=== PATIENT | female | born 1940 | race Caucasian/White ===

== ENCOUNTER 2018-09-12 01:44 | Inpatient (IN) | payer MEDICARE, BC ==
[~2018-09-12] VITALS: Ht 162.6 cm; Wt 66.2 kg
--- NOTE | 2018-09-12 01:44 | NUR ---
ED Nurse Note: Patient biba RA 60 from [facility] c/o hemoptysis, at time of arrival patient did cough up reddish tinged secretions, EMS states that it started at around 1230, patient is able to answer questions, patient does have a perma cath on the left upper chest, 2 ports for dialysis and 1 port for IV. patient's skin is bruised and swelled up, especially on the right arm.
[2018-09-12 01:45] VITALS: BP 160/74
[2018-09-12] MEDS ORDERED: Tranexamic Acid 500 MG in NS 55 ML IVPB ONE (02:00)
[2018-09-12] MEDS ORDERED: Albuterol/Ipratropium 3ml neb HHN ONE (02:00)
[2018-09-12 02:24] LABS: HEMATOCRIT 28.4 % (37.0-47.0); HEMOGLOBIN 9.3 G/DL (12.0-16.0); MEAN CORPUSCULAR VOLUME 107 FL (80-99); PLATELET COUNT 238 K/UL (150-450); RED BLOOD COUNT 2.65 M/UL (4.20-5.40); RED CELL DISTRIBUTION WIDTH 19.4 % (11.6-14.8); WHITE BLOOD COUNT 18.9 K/UL (4.8-10.8)
--- NOTE | 2018-09-12 02:30 | NUR ---
ED Nurse Note: RETURNED FROM BREAK AND RESUMED CARE, PT IN BED AWAKE, ALERT AND ORIENTED X 4, PT IS SPEAKING AND CONVERSING WITH ME, PT IS HERE FROM SNF FOR GI BLEED, PT NOTED WITH RED BLOOD IN MOUTH, PT MOUTH CLEANED ND PT SWISH AND SPIT, ALSO PT IS INCONTINENT OF STOOL, BROWN COLORED AND VERY SOFT AND LARGE AMOUNT, RUNNING OFF GURNEY ON FLOOR, PT GIVEN COMPLETE BATH AND LINEN CHANGE, PT HAS GENERALIZED PITTING EDEMA WITH SEVERE ECHYMOSIS NOTED ALSO GENERALIZED, PT ON CARDIAC MONITORING, HAS PATENT PERMACATH TO LEFT CHEST AND HOLTER MONITOR IN MID CHEST, WILL RESUME PT CARE AND PREPARE FOR HOSPITAL ADMISSION.
[2018-09-12 02:36] LABS: INR 1.1 (0.9-1.1)
[2018-09-12 02:37] LABS: ANION GAP 11 mmol/L (5-15); BLOOD UREA NITROGEN 35 mg/dL (7-18); CALCIUM 8.2 MG/DL (8.5-10.1); CARBON DIOXIDE 28 MMOL/L (21-32); CHLORIDE 102 MMOL/L (98-107); CREATININE 3.2 MG/DL (0.55-1.30); POTASSIUM 3.7 MMOL/L (3.5-5.1); SODIUM 141 MMOL/L (136-145)
[2018-09-12] MEDS ORDERED: METHOCARBAMOL500 MG ORAL (02:38)
[2018-09-12] MEDS ORDERED: GABAPENTIN100 MG ORAL (02:38)
[2018-09-12] MEDS ORDERED: SYNTHROID150 MCG ORAL (02:38)
[2018-09-12] MEDS ORDERED: PRAVACHOL40 MG ORAL (02:38)
[2018-09-12] MEDS ORDERED: NEPHROVITE1 TAB ORAL ×2 (02:38→12:19)
[2018-09-12] MEDS ORDERED: LOSARTAN POTASS25 MG ORAL (02:38)
[2018-09-12] MEDS ORDERED: PROTONIX40 MG ORAL (02:38)
[2018-09-12] MEDS ORDERED: ZOSYN 2.252.25 GM/50 IV (02:38)
[2018-09-12 02:50] LABS: ALANINE AMINOTRANSFERASE 14 U/L (12-78); ALBUMIN 1.6 G/DL (3.4-5.0); ALBUMIN/GLOBULIN RATIO 0.4 (1.0-2.7); ALKALINE PHOSPHATASE 131 U/L (46-116); ASPARTATE AMINO TRANSFERASE 21 U/L (15-37); BILIRUBIN,TOTAL 0.5 MG/DL (0.2-1.0); CKMB 1.7 NG/ML (0.0-3.6); CREATINE KINASE 14 U/L (26-308); PHOSPHORUS 4.6 MG/DL (2.5-4.9)
[2018-09-12 03:00] VITALS: BP 113/69
--- NOTE | 2018-09-12 03:45 | NUR ---
ED Nurse Note: PT HAD INCIDENT OF COUGH AND CONGESTION WHICH IS ALL BLOOD TINGED SPUTUM, BRIGHT RED, INFORMED AND AWARE AND STATES TO ADMINISTER ORDERED MED, WILL ADMINISTER ORDERED, PT REMAINS ON MONITORING, WILL CONTIONUE TO CLOSELY MONITOR AND PREPARE FOR HOSPITAL ADMISSION.
[2018-09-12 04:00] VITALS: BP 111/59
[2018-09-12] MEDS ORDERED: Cefepime HCl 1 GM in D5W 55 ML IVPB ONE (04:15)
[2018-09-12] MEDS ORDERED: Vancomycin 1 GM in NS 275 ML IVPB ONE (04:15)
--- NOTE | 2018-09-12 04:45 | NUR ---
ED Nurse Note: PT DESATURATES LOW WHEN ASLEEP, HAS N/C O2 BUT SAT = 88%, PT IS BEING STARTED ON BIPAP, REMAINS ON CARDIAC MONITORING, PT REPOSITIONED AND TURNED WITH PILLOWS, WILL CONTINUE TO CLOSELY MONITOR AND PREPARE FOR ADMISSION, PT ALSO STARTED ON IV ANTIBIOTICS, TOLERATING WELL, NO S/S OF ADVERSE REACTION NOTED.
--- NOTE | 2018-09-12 06:10 | NUR ---
ED Nurse Note: Pt being taken to imaging for cta, will resume care when pt returns to department.
[2018-09-12 07:10] VITALS: BP 132/58
--- NOTE | 2018-09-12 07:13 | NUR ---
ED Nurse Note: [phone] MOODY -SON
--- NOTE | 2018-09-12 07:15 | NUR ---
ED Nurse Note: recieved pt on bed, connected to monitor with vs within normal limit, pt has ongoing atb iv, pt is on oxygen at 6L/min. pt is arousable to name, pt respiration equal and unlabored
--- NOTE | 2018-09-12 08:00 | NUR ---
ED Nurse Note: pt noted to be coughing and spitted sputum with blood, pt oxygen saturation went down to 70s, pt placed on high fowlers position and on 15L/min non rebreathing mask, ermd made aware. will continue to monitor
--- NOTE | 2018-09-12 08:15 | NUR ---
ED Nurse Note: DR. MARR AT THE BEDSIDE
--- NOTE | 2018-09-12 08:24 | NUR ---
ED Nurse Note: pt rechecked and monitor, with o2 sat on 99 on 10L/min nasal cannula. pt is arousable by touch. able to speak. will continue to monitor.
--- NOTE | 2018-09-12 08:28 | NUR ---
ED Nurse Note: attempted to call icu to give report to accepting rn and was advised to call back in 15 minutes because the rn is with md and accepting orders.
--- NOTE | 2018-09-12 08:50 | NUR ---
ED Nurse Note: pt was admited to the hospital. report given to lauryn christy. pt trasnfered to icu with stable vs.
--- NOTE | 2018-09-12 09:15 | NUR ---
NURSE NOTES: Received pt a, new admission for ED,brought to ICU per javier accompanied by PROCESSING ANALYST Yue and a transporter,and family member,awake,alert in no resp distress on 5L NC,O2 sat 98%,no signs of pain or discomfort SR on the monitor,pt with Holter monitor in placed,skin warm and dry with ecchymotic RT arm,with Lt PAC in placed,SR up x2 HOB elevated will conitnue with plans of care.
--- NOTE | 2018-09-12 10:30 | NUR ---
NURSE NOTES: WOC nurse at bedside,wounds assessed and photos taken.
--- NOTE | 2018-09-12 11:30 | Diagnostic Imaging Report ---
ndication: Chest pain, coughing blood Technique: IV administration nonionic contrast. Spiral acquisitions obtained from the lung bases to the lung apices. Multiplanar and 3-D reconstructions were generated. Total dose length product 984.2 mGycm. CTDIvol(s) 26.39 mGy. Dose reduction achieved using automated exposure control Comparison: none Findings: Pulmonary arterial opacification is suboptimal and small distal emboli could be missed. No gross acute large vessel pulmonary emboli demonstrated. Right and left main pulmonary arteries are ectatic, measuring 25 mm in diameter. There is four-chamber cardiomegaly, but no isolated right ventricular dilatation demonstrated. No thoracic aortic aneurysm or dissection demonstrated. There is variant anatomy of separate origin of the vertebral artery off of the aortic arch. There is approximately 50% narrowing of the left renal artery noted. The remaining pulmonary visceral vessels are unremarkable. The pulmonary parenchyma demonstrates diffuse interstitial septal thickening, considerable groundglass and denser parenchymal opacities throughout. There is also evidence of right upper lobe bullous changes. There is a large left pleural effusion which may be at least partially loculated. There is compressive atelectasis of much of the left lower lobe as a result. There is a smaller right pleural effusion, with compressive atelectatic changes at the right lung base as well. The heart is enlarged. There is mediastinal lymphadenopathy, with a precarinal node measuring 21 x 21 mm, as cause other large paratracheal nodes. Esophagus is grossly unremarkable. Prominent nodes are seen in the right axilla. There is fairly extensive diffuse edema of the subcutaneous and mediastinal fat. There is a tunneled dialysis catheter in place. The tip is deep in the right atrium. There is also a left transjugular central venous catheter, tip of which is retrograde within the azygos vein. The included upper abdominal anatomy is remarkable for the presence of an enhancing mass in the left kidney that measures 2 cm in diameter. There is an eggshell calcification centrally in the left kidney. There are multiple renal cysts as well as subcentimeter low-attenuation lesions bilaterally. There is a wedge-shaped low-attenuation area in the periphery of the spleen. The liver demonstrates mild surface nodularity. There are patchy areas of enhancement. There is abdominal ascites. There is a compression fracture deformity of the T12 vertebral body with posterior retropulsion. There is a acute appearing fracture deformity of the right lateral ninth rib. There is an old healed fracture deformity of the left posterolateral eighth rib. Impression: Suboptimal opacification of the pulmonary arteries; no gross large vessel pulmonary emboli demonstrated Negative for thoracic aortic aneurysm or dissection Four-chamber cardiomegaly Interstitial septal thickening, likely secondary to pulmonary edema. Groundglass and denser airspace opacities diffusely bilaterally, likely on the basis of pulmonary edema but other etiologies possible Large left and small right pleural effusions. That on the left is possibly loculated, particularly in the upper hemithorax Ascites Anasarca, with, in addition to the above findings, diffuse edema of the subcutaneous, mediastinal, and abdominal fat Compressive atelectasis of much of the left lower lobe and portions of the right lower lobe due to the pleural fluid Evidence of COPD changes Mediastinal lymphadenopathy, may reactive or neoplastic 2 cm enhancing left renal mass, worrisome for renal neoplasm. Consider dedicated renal CT for better characterization Partial eggshell calcification within the renal sinus, could represent a partially calcified renal artery aneurysm versus a postinflammatory lesion Hepatic surface nodularity, likely cirrhosis Scattered areas of arterial hyperenhancement in the liver, likely related to cirrhotic change or transient areas of arterial enhancement T12 compression fracture with posterior retropulsion. Consider MRI to determine acuity if clinically relevant Wedge-shaped area of low-attenuation in the spleen, likely an old infarct Narrowing of the left renal artery Mild ectasia of the pulmonary arteries, suggestive of but not diagnostic for mild pulmonary artery hypertension Right lateral ninth rib fracture Bilateral renal cysts. Subcentimeter low-attenuation renal lesions bilaterally, most likely benign simple cysts Possible right axillary lymphadenopathy Tunneled dialysis catheter, tip projecting deep in the right atrium. There is a left jugular central venous catheter, tip of which is in the azygos vein projected retrograde This agrees with the preliminary interpretation provided overnight by [facility] teleradiology service. The CT scanner at [facility] is accredited by the [employer] and the scans are performed using protocols designed to limit radiation exposure to as low as reasonably achievable to attain images of sufficient resolution adequate for diagnostic evaluation.
[2018-09-12] MEDS ORDERED: NORVASC5 MG ORAL (12:19)
[2018-09-12] MEDS ORDERED: TRAMADOL HCL50 MG ORAL (12:19)
[2018-09-12] MEDS ORDERED: ZINC SULFATE220 M2 ORAL (12:19)
[2018-09-12] MEDS ORDERED: VANCOCIN250 MG ORAL (12:19)
[2018-09-12] MEDS ORDERED: GUAIFENESIN DA473 ML PO (12:19)
[2018-09-12] MEDS ORDERED: GUAIFENESI100 MG/5 M ORAL (12:19)
[2018-09-12] MEDS ORDERED: ZOLPIDEM TARTRAT5 MG ORAL (12:19)
[2018-09-12] MEDS ORDERED: ROPINIROLE HCL2 M1 PO (12:19)
[2018-09-12] MEDS ORDERED: guaiFENesin 100mg/5ml Liq ud ORAL SCH (12:30)
--- NOTE | 2018-09-12 12:33 | NUR ---
CASE MANAGEMENT: INITIAL REVIEW 77 YO F NATHANIEL FROM [facility] CC: GI BLEED PMHx: ESRD. HD MWF. CKD. SI:HEMOPTYSIS. T 98.4 HR 86 RR 18 B/P 160/74 SATS 92% ON RA WBC 18.9 BUN 35 CR 3.2 GLU 139 CA 8.2 ALP 131 TOTAL CK 14 BNP 8099 IS: DUONEB HHN X1 TRANSEXAMIC ACID IV X1 PATIENT ADMITTED TO ICU 09/12/2018 @ 0252 DCP: PATIENT TO BE DISCHARGED TO SNF ONCE MEDICALLY CLEARED. PLAN OF CARE: [facility] Addendum: 09/12/18 at 1447 by Danielle Manley INTERQUAL MET
[2018-09-12] MEDS ORDERED: guaiFENesin 100mg/5ml Liq ud ORAL PRN (13:00)
--- NOTE | 2018-09-12 14:08 | NUR ---
NURSE NOTES:WOUND CARE NOTES:Pt presented on admission with multiple pressure injuries.Pt also noted to have multiple senile purpuras R neck /R shoulder,Both upper ext and both lower ext. Non-blanchable erythema without induration or elevation in skin temp noted to thoracic spine(L)4cm x (W)2.4cm. Non-blanchable erythema without induration noted to Sacrum with an area that is purple in colour R buttocks.Pt denied tenderness when buttocks minimally palpated.(L)8cm x (W)12.5cm. Non-blanchable erythema noted to both ischial regions.Pt denied tenderness when each site minimally palpated. Erythema noted to mons pubis and labia majora. Pt denied burning or itching. Non-blanchable erythema with maroon discoloration with fluctuance centrally at base of wound R heel .Tender when minimally palpated. Non-blanchable erythema with fluctuance L heel. non-tender when minimally palpated. Full thickness pressure injury with 80% fibrinous slough noted to lateral R tibia.(+) maceration along edges . Scattered purpuras periwound. No elevation in skin temp at site of wound. Small amt non-odorous seropurulent exudate noted. (L)4cm x (W)1.4cm. Tx.Plan: Apply Cavilon Skin Barrier to thoracic spine. Cover with Optifoam drsg. Change every 7 days and prn. Apply Moisture Barrier Paste to Sacrum. Cover with Optifoam drsg. Change every 3 days and prn. Apply Moisture Barrier to perineum and both ischial areas with each perineal care. Cleanse R lateral lower ext with saline. Apply Therahoney. Apply Cavilon Skin Barrier periwound.Cover with Optifoam drsg. Change every 3 days and prn Apply Cavilon Skin Barrier to both heels. Cover each heel with Optifoam drsg. Change every 7 days and prn. Reposition at least every 2hours or as tolerated. APM/MOISES mattress. Off-load heels with pillow.
--- NOTE | 2018-09-12 15:20 | NUR ---
TRANSFER TO FLOOR: Patient transferred to [facility] , per bed 237-2. Report given to Alley ALMARAZ.. Family informed of transfer.
--- NOTE | 2018-09-12 15:22 | Cardiology Report ---
APPROVED REPORT EKG Measurement Heart [id number] Normal sinus rhythm Cannot rule out Anterior infarct, age undetermined Abnormal ECG
--- NOTE | 2018-09-12 15:45 | NUR ---
NURSE NOTES: Received pt from [facility] in stable condition with no cardiopulmonary distress noted. Pt is AAOx4, on 4L O2 via NC hooked to monitoring specialist currently SR 75bpm. Permacath noted on left chest (tunneled dialysis catheter). Skin alterations noted and notable bruising on bilat upper extremities. Bed is in lowest position, alarm on, side rails up x 3, call light within reach, family at bedside and airborne precuation teaching provided however family refuses to wear N95 mask at this time, Juan Francisco (son) states "my mom got all the tests done at [facility] and she doesn't have TB." Will continue to monitor pt. Addendum: 09/12/18 at 1856 by Alley Bryan RN Amendment: pt has kenneth (not permacath)
[2018-09-12 16:00] VITALS: BP 142/41
--- NOTE | 2018-09-12 16:00 | NUR ---
NURSE NOTES: Noted AV shunt on left arm. Pt states "it's old, they don't use it anymore, go ahead and take my blood pressure there."
--- NOTE | 2018-09-12 16:14 | Diagnostic Imaging Report ---
Indication: Shortness of breath for one day Technique: One view of the chest Comparison: none Findings: There is a left jugular tunneled dialysis catheter, tip which projects deep within the right atrium. There is a left jugular central venous catheter, tip of which is pointed horizontally, demonstrated on subsequent CT angiogram to be retrograde within the azygos vein. There is extensive bilateral interstitial and airspace disease. Large left and small right pleural effusions are demonstrated. Overlying monitor worker noted. The heart size is upper limits of normal Impression: Extensive diffuse bilateral interstitial and airspace infiltrates versus edema Large left, small right pleural effusion Malposition of left jugular central venous catheter, tip pointed retrograde in the azygos vein Other findings as noted
--- NOTE | 2018-09-12 16:30 | NUR ---
Walked into pt's room and observed family feeding the pt pork dinner, informed them of her clear liquid diet and explained she cannot eat solid foods. Offered them apple juice and thickened water. Pt preferred the thickened water for now. Family verbalized understanding and agreed not to feed pt.
--- NOTE | 2018-09-12 17:13 | History & Physical ---
History and Physical History & Physicial dict hemoptysis SBE cervical osteo ESRD multiple other medical problems sputum AFB quantiferon Gold if neg needs bronch DNR her wish Curtis Adams MD Sep 12, 2018 17:13
--- NOTE | 2018-09-12 17:56 | Infectious Diseases Prog Note ---
Assessment/Plan Assessment/Plan Full consult dictated: ? sepsis, sirs leukocytosis ? TB pna/infection, patient with hemoptysis hx endocarditis hx cervical osteomyelitis ? line infection vancomycin, cefepime and flagyl check blood cultures, labs, chest-x-ray, echo, afp check [facility] records orders noted and entered akin winkler Subjective Allergies: Coded Allergies: PENICILLINS (Unverified Allergy, Unknown, 09/12/18) Objective Vital Signs Last 24 Hour Vital Signs Date Time Temp Pulse Resp B/P (MAP) Pulse Ox O2 Delivery O2 Flow Rate FiO2 09/12/18 16:00 98.4 72 24 142/41 (74) 95 09/12/18 16:00 Nasal Cannula 4.0 09/12/18 15:20 71 09/12/18 10:30 Nasal Cannula 4.0 09/12/18 08:50 98.4 66 12 132/58 100 Nasal Cannula 6.0 30 66 09/12/18 07:15 98 Nasal Cannula 4.0 36 09/12/18 07:10 66 12 132/58 100 Nasal Cannula 6.0 66 09/12/18 04:52 71 13 95 Facial 30 09/12/18 04:00 98.4 71 18 111/59 98 Non-Rebreather 15.0 97 09/12/18 03:00 98.4 78 16 113/69 100 Room Air 15.0 97 09/12/18 02:19 89 16 98 Non-Rebreather 15.0 97 09/12/18 02:10 86 16 99 Non-Rebreather 15.0 100 09/12/18 02:09 89 16 99 Non-Rebreather 15.0 100 09/12/18 01:45 98.4 81 18 160/74 92 Room Air 09/12/18 01:45 96 18 09/12/18 01:39 98.4 96 18 160/74 (102) 92 Height (Feet): 5 Height (Inches): 4.00 Weight (Pounds): 120 Microbiology Date/Time Source Procedure Growth Status 09/12/18 04:00 Rectum Received Laboratory Tests Test 09/12/18 02:05 09/12/18 02:20 09/12/18 04:06 White Blood Count 18.9 K/UL (4.8-10.8) H Red Blood Count 2.65 M/UL (4.20-5.40) L Hemoglobin 9.3 G/DL (12.0-16.0) L Hematocrit 28.4 % (37.0-47.0) L Mean Corpuscular Volume 107 FL (80-99) H Mean Corpuscular Hemoglobin 35.0 PG (27.0-31.0) H Mean Corpuscular Hemoglobin Concent 32.8 G/DL (32.0-36.0) Red Cell Distribution Width 19.4 % (11.6-14.8) H Platelet Count 238 K/UL (150-450) Mean Platelet Volume 6.5 FL (6.5-10.1) Neutrophils (%) (Auto) % (45.0-75.0) Lymphocytes (%) (Auto) % (20.0-45.0) Monocytes (%) (Auto) % (1.0-10.0) Eosinophils (%) (Auto) % (0.0-3.0) Basophils (%) (Auto) % (0.0-2.0) Prothrombin Time 11.3 SEC (9.30-11.50) Prothromb Time International Ratio 1.1 (0.9-1.1) Activated Partial Thromboplast Time 38 SEC (23-33) H Sodium Level 141 MMOL/L (136-145) Potassium Level 3.7 MMOL/L (3.5-5.1) Chloride Level 102 MMOL/L (98-107) Carbon Dioxide Level 28 MMOL/L (21-32) Anion Gap 11 mmol/L (5-15) Blood Urea Nitrogen 35 mg/dL (7-18) H Creatinine 3.2 MG/DL (0.55-1.30) H Estimat Glomerular Filtration Rate mL/min (>60) Glucose Level 139 MG/DL (74-106) H Calcium Level 8.2 MG/DL (8.5-10.1) L Phosphorus Level 4.6 MG/DL (2.5-4.9) Magnesium Level 2.1 MG/DL (1.8-2.4) Total Bilirubin 0.5 MG/DL (0.2-1.0) Aspartate Amino Transf (AST/SGOT) 21 U/L (15-37) Alanine Aminotransferase (ALT/SGPT) 14 U/L (12-78) Alkaline Phosphatase 131 U/L (46-116) H Total Creatine Kinase 14 U/L (26-308) L Creatine Kinase MB 1.7 NG/ML (0.0-3.6) Creatine Kinase MB Relative Index 12.1 Troponin I 0.017 ng/mL (0.000-0.056) Pro-B-Type Natriuretic Peptide 8099 pg/mL (0-125) H Total Protein 5.6 G/DL (6.4-8.2) L Albumin 1.6 G/DL (3.4-5.0) L Globulin 4.0 g/dL Albumin/Globulin Ratio 0.4 (1.0-2.7) L Lactic Acid Level 0.70 mmol/L (0.4-2.0) Arterial Blood pH 7.319 (7.350-7.450) Arterial Blood Partial Pressure CO2 60.2 mmHg (35.0-45.0) *H Arterial Blood Partial Pressure O2 113.0 mmHg (75.0-100.0) H Arterial Blood HCO3 30.3 mmol/L (22.0-26.0) H Arterial Blood Oxygen Saturation 97.5 % (95-100) Arterial Blood Base Excess 3.1 (-2-2) H Red Test Positive Current Medications Medications (Trade) Dose Ordered Sig/[place] Route PRN Reason Start Time Stop Time Status Last Admin Dose Admin Acetaminophen (Tylenol) 650 mg Q6H PRN ORAL Mild Pain/Temp > 100.5 09/12/18 11:30 10/12/18 11:29 Amlodipine Besylate (Norvasc) 5 mg DAILY ORAL 09/13/18 09:00 10/13/18 08:59 Gabapentin (Neurontin) 100 mg THREE TIMES A DAY ORAL 09/12/18 13:00 10/12/18 12:59 09/12/18 14:49 Guaifenesin (Robitussin) 100 mg Q4H PRN ORAL For Cough 09/12/18 13:00 10/12/18 12:59 Levothyroxine Sodium (Synthroid) 150 mcg Q24H ORAL 09/13/18 06:30 10/13/18 06:29 Losartan Potassium (Cozaar) 25 mg DAILY ORAL 09/13/18 09:00 10/13/18 08:59 Methocarbamol (Robaxin) 500 mg QIDPRN PRN ORAL MUSCLE PAIN 09/12/18 12:30 10/12/18 12:29 Pantoprazole (Protonix) 40 mg DAILY ORAL 09/13/18 09:00 10/13/18 08:59 Pravastatin Sodium (Pravachol) 40 mg BEDTIME ORAL 09/12/18 21:00 10/12/18 20:59 Tramadol HCl (Ultram) 50 mg Q6H PRN ORAL For Pain 09/12/18 12:30 09/19/18 12:29 Vitamin B Complex/ Vit C/Folic Acid (Nephrovite) 1 tab DAILY ORAL 09/13/18 09:00 10/13/18 08:59 Zinc Sulfate (Zinc Sulfate) 220 mg DAILY ORAL 09/13/18 09:00 10/13/18 08:59 Zolpidem Tartrate (Ambien) 5 mg BEDTIME PRN ORAL Insomnia 09/12/18 12:30 09/19/18 12:29 Leonor Thakkar MD Sep 12, 2018 17:56
--- NOTE | 2018-09-12 19:09 | Emergency Room Report ---
History of Present Illness General Chief Complaint: Hemoptysis Source: Patient, Medical Record Present Illness HPI Patient is a 77-year-old female brought in from nursing facility after increased hemoptysis. Patient had prior history of recent antibiotic use for cervical osteomyelitis. She is currently on dialysis. She is normally dialyzed Monday. Patient had been noted to have increased bloody secretions during coughing episodes. She had been noted to have DNR status.Patient stated that she was having increased difficulty with breathing. Patient was started on supplemental oxygen by EMS.Patient had recently been on Zosyn IV. Allergies: Coded Allergies: PENICILLINS (Unverified Allergy, Unknown, 09/12/18) Patient History Past Medical History: see triage record, old chart reviewed Last Menstrual Period: n/a Now: No Reviewed Nursing Documentation: PMH: Agreed; PSxH: Agreed Nursing Documentation-PMH Past Medical History: No History, Except For Hx Cardiac Problems: Yes Hx Hypertension: Yes Hx Cancer: No Hx Gastrointestinal Problems: Yes Hx Dialysis: Yes Hx Neurological Problems: Yes Hx Cerebrovascular Accident: Yes Review of Systems All Other Systems: negative except mentioned in HPI Physical Exam Vital Signs Date Time Temp Pulse Resp B/P (MAP) Pulse Ox O2 Delivery O2 Flow Rate FiO2 09/12/18 01:39 98.4 96 18 160/74 (102) 92 09/12/18 01:45 Room Air 09/12/18 02:09 15.0 100 Sp02 EP Interpretation: abnormal General Appearance: alert, GCS 15, moderate distress Head: normocephalic Eyes: bilateral eye other - postsurgical pupils ENT: normal pharynx, other - blood in oropharynx Neck: limited range of motion Respiratory: wheezing Gastrointestinal: normal inspection, soft Rectal: deferred Musculoskeletal: normal inspection Neurologic: normal inspection, alert, oriented x3, responsive, 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 Differential diagnosis included but was not limited to pulmonary embolism, pneumonia, bronchitis, aortic fistula, tuberculosis among others. Patient was noted to have moderate amount of grossly bloody sputum. She was noted to be normotensive and somewhat somnolent oxygen saturation was high. Patient states that she is not to be intubated or resuscitated. She consented for CT imaging. Patient was given breathing treatment. She was noted to have continued hemoptysis and was given IV Tranexamic acid. She was noted to have CXR with bilateral infiltrates and effusion. Blood cultures were obtained and she was started on IV Cefepime and Vancomycin. Dr. Curtis Adams was contacted for inpatient management due to covering physician for Dr. Scotty Spence. Laboratory Tests Test 09/12/18 02:05 09/12/18 02:20 09/12/18 04:06 White Blood Count 18.9 K/UL (4.8-10.8) H Red Blood Count 2.65 M/UL (4.20-5.40) L Hemoglobin 9.3 G/DL (12.0-16.0) L Hematocrit 28.4 % (37.0-47.0) L Mean Corpuscular Volume 107 FL (80-99) H Mean Corpuscular Hemoglobin 35.0 PG (27.0-31.0) H Mean Corpuscular Hemoglobin Concent 32.8 G/DL (32.0-36.0) Red Cell Distribution Width 19.4 % (11.6-14.8) H Platelet Count 238 K/UL (150-450) Mean Platelet Volume 6.5 FL (6.5-10.1) Neutrophils (%) (Auto) % (45.0-75.0) Lymphocytes (%) (Auto) % (20.0-45.0) Monocytes (%) (Auto) % (1.0-10.0) Eosinophils (%) (Auto) % (0.0-3.0) Basophils (%) (Auto) % (0.0-2.0) Prothrombin Time 11.3 SEC (9.30-11.50) Prothrombin Time INR 1.1 (0.9-1.1) PTT 38 SEC (23-33) H Sodium Level 141 MMOL/L (136-145) Potassium Level 3.7 MMOL/L (3.5-5.1) Chloride Level 102 MMOL/L (98-107) Carbon Dioxide Level 28 MMOL/L (21-32) Anion Gap 11 mmol/L (5-15) Blood Urea Nitrogen 35 mg/dL (7-18) H Creatinine 3.2 MG/DL (0.55-1.30) H Estimate Glomerular Filtration Rate mL/min (>60) Glucose Level 139 MG/DL (74-106) H Calcium Level 8.2 MG/DL (8.5-10.1) L Phosphorus Level 4.6 MG/DL (2.5-4.9) Magnesium Level 2.1 MG/DL (1.8-2.4) Total Bilirubin 0.5 MG/DL (0.2-1.0) Aspartate Amino Transferase (AST) 21 U/L (15-37) Alanine Aminotransferase (ALT) 14 U/L (12-78) Alkaline Phosphatase 131 U/L (46-116) H Total Creatine Kinase 14 U/L (26-308) L Creatine Kinase MB 1.7 NG/ML (0.0-3.6) Creatine Kinase MB Relative Index 12.1 Troponin I 0.017 ng/mL (0.000-0.056) Pro-B-Type Natriuretic Peptide 8099 pg/mL (0-125) H Total Protein 5.6 G/DL (6.4-8.2) L Albumin 1.6 G/DL (3.4-5.0) L Globulin 4.0 g/dL Albumin/Globulin Ratio 0.4 (1.0-2.7) L Lactic Acid Level 0.70 mmol/L (0.4-2.0) Arterial Blood pH 7.319 (7.350-7.450) Arterial Blood Partial Pressure CO2 60.2 mmHg (35.0-45.0) *H Arterial Blood Partial Pressure O2 113.0 mmHg (75.0-100.0) H Arterial Blood HCO3 30.3 mmol/L (22.0-26.0) H Arterial Blood Oxygen Saturation 97.5 % (95-100) Arterial Blood Base Excess 3.1 (-2-2) H Red Test Positive Last Vital Signs Date Time Temp Pulse Resp B/P (MAP) Pulse Ox O2 Delivery O2 Flow Rate FiO2 09/12/18 16:00 98.4 72 24 142/41 (74) 95 09/12/18 16:00 Nasal Cannula 4.0 09/12/18 08:50 30 Status: unchanged Disposition: ADMITTED INPATIENT Condition: Serious Referrals: SCOTTY SPENCE (PCP) Evangelista Baptiste MD Sep 12, 2018 19:09
--- NOTE | 2018-09-12 19:11 | NUR ---
HAND-OFF: Report given to SUNG Alfredo. Pt in stable condition.
--- NOTE | 2018-09-12 19:15 | NUR ---
NURSE NOTES: Received patient from SUNG Hager. Patient is receiving HD at the moment, HD nurse and family member is at bed side. Patient repositioned and all needs are met. Will continue plan of care.
[2018-09-12 20:00] VITALS: BP_SYST 130; BP_SYST 142; BP_DIAS 41; BP_DIAS 69
[2018-09-12] MEDS ORDERED: Epoetin Alfa-EPBX(ESRD on dialysis)2000 units/ml vial SUBQ SCH (21:00)
[2018-09-12] MEDS ORDERED: Epoetin Alfa-EPBX(ESRD on dialysis)10,000 unit/ml vial SUBQ SCH (21:00)
[2018-09-12] MEDS ORDERED: Epoetin Alfa-EPBX(ESRD on dialysis)3000 units/ml vial SUBQ SCH (21:00)
[2018-09-12] MEDS: Zolpidem 5mg tab ORAL PRN (21:34)
[2018-09-12] MEDS: Methocarbamol 500mg tab ORAL PRN (21:34)
[2018-09-12] MEDS: traMADol 50mg tab ORAL PRN (21:35)
[2018-09-13] VITALS: BP 146/51
--- NOTE | 2018-09-13 00:30 | History and Physical Report ---
DATE OF ADMISSION: 09/12/2018 HISTORY OF PRESENT ILLNESS: This is a 69-year-old woman, who was admitted from the assisted to the emergency department via paramedics because of moderate hemoptysis which began on the day of admission. She states that she just began coughing up fresh blood without chest pain. She has some shortness of breath and had low oxygen saturation. The patient has a history of end-stage renal disease, on dialysis, alcohol abuse, mastopexy, hypertension, hyperlipidemia, hypothyroidism, hyperparathyroidism, parathyroidectomy, and right hip replacement. She has a left renal mass suspicious for carcinoma. She was recently hospitalized at [facility] and found to have a subacute stroke in the right centrum semiovale. She was also found to have cervical osteomyelitis of the odontoid and left C1 lateral mass due to previous endocarditis and bacteremia. She has a history of C. diff colitis. She had ascites and thought to be due to chronic liver disease. She is known to have chronic obstructive pulmonary disease with centrilobular emphysema. 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 ALLERGIES: Penicillin. CODE STATUS: DNR according to my discussion with her and a POLST is provided. MEDICATIONS: Tylenol, amlodipine, baby aspirin, vitamins, gabapentin, heparin, thyroxine 150 mcg daily, losartan 25 mg twice daily, Robaxin, Zosyn, Pravachol, Protonix, Requip, tramadol, vancomycin suspension, zinc, Zofran, and Ambien. REVIEW OF SYSTEMS: Cannot be obtained due to the patient's acute illness. PHYSICAL EXAM: GENERAL: The patient is alert and responsive, but seriously ill. VITAL SIGNS: Show her oxygen saturation was low, but improved with supplemental oxygen. She is on a mask. She has fresh blood in the towel next to the bedside. The blood pressure is normal to elevated. The heart rate is 70. There is no fever. The patient appears frail and chronically ill. HEENT: Head is normocephalic with temporal muscle wasting. NECK: No jugular venous distention. There is a dialysis catheter in the left subclavian vein. CHEST: Has rales. CARDIAC: Rhythm is regular. ABDOMEN: Soft with ascites noted. Liver and spleen cannot be felt. EXTREMITIES: A 2+ edema. No clubbing or cyanosis. LABORATORY STUDIES: Showed a white count of 18,900. For reference, her recent white count at [facility] was 9300 on 09/09/2018. Blood gas shows pH 7.32, pCO2 60, and pO2 is 113 consistent with hypercarbic respiratory failure, acute on chronic. Chemistry shows elevated BUN and creatinine consistent with renal failure. Blood sugar is 139. Natriuretic peptide is elevated at 8100. Troponin is negative. INR is 1.1. Imaging shows loculated pleural effusions, left greater than right and basilar atelectasis and infiltrates. IMPRESSION: 1. Hemoptysis, possibly due to pneumonia, tuberculosis is to be considered. Metastatic neoplasm seems unlikely. Recent chest x-ray at [facility] showed atelectasis at right base and pleural effusions and infiltrate on the left side. 2. End-stage renal disease. On dialysis. 3. Cervical osteomyelitis. 4. Recent stroke. 5. Renal mass. 6. Penicillin allergy. 7. 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 8. Peripheral artery disease. 9. Renal mass. 10. Clostridium difficile colitis. PLAN: The patient is very seriously ill. She will be DNR according to her wishes. I have spoken to her primary physician, . , as well as both the son and daughter and the nurse. We will get sputum for acid fast and tuberculosis QuantiFERON blood test. If these are negative, then bronchoscopy should be undertaken. Antibiotics will be continued. We will get Infectious Disease and Nephrology consultation at this time. Curtis Adams M.D. DR: DARNELL JOB#: [id number] CC: Curtis Adams M.D.; Fax#: [phone]
--- NOTE | 2018-09-13 02:02 | Consultation ---
DATE OF CONSULTATION: 09/12/2018 INFECTIOUS DISEASE CONSULTATION CONSULTING PHYSICIAN: Leonor Thakkar M.D. REFERRING PHYSICIAN: Curtis Adams M.D. REASON FOR CONSULTATION: Possible sepsis, elevated white count, possible tuberculosis, pneumonia, and infection without pneumonia, rule out other bacterial pneumonia. Also, history of endocarditis and cervical osteomyelitis. CHIEF COMPLAINT: The patient's chief complaint coming in to the hospital is hemoptysis. HISTORY OF PRESENT ILLNESS: This is a very pleasant 77-year-old female, who has history of multiple medical problems including history of endocarditis and cervical osteomyelitis. It is unclear what antibiotics for pathogen. I believe her records are at [facility], which I will try to obtain. The patient comes in to [facility] with hemoptysis and is being ruled out for tuberculosis, pneumonia, and infection. AFB and QuantiFERON are both pending. The patient had a CT scan of the chest and thorax, which showed pulmonary edema and ground glass airspace disease diffusely bilaterally and this also could be pulmonary edema. The patient also had effusion. The patient has atelectasis. Report was noted. The patient did have elevated white count and SIRS criteria also. White count is 18.9. Infectious Disease consultation is requested for antibiotic management in this patient with multiple infectious disease issues including possible sepsis, possible tuberculosis, pneumonia, possible aspiration, healthcare-acquired pneumonia, history of endocarditis, and cervical osteomyelitis. The patient will be started empirically on vancomycin and cefepime and Flagyl. She is allergic to penicillin, but she did tolerate cefepime in the ER. I discussed with pharmacy also. We will continue vancomycin and cefepime and Flagyl for now. REVIEW OF SYSTEMS: CONSTITUTIONAL: The patient has end-stage disease, on hemodialysis. She does not have a Arenas. She has generalized fatigue. No new focal weakness. She has no fever. She is responsive and oriented. HEAD AND NECK: No head pain, neck pain, or neck stiffness. She has actually may be some neck discomfort, but no neck stiffness or headache. She did not mention dysphagia or thrush. CARDIAC: No chest pain or palpitations. GASTROINTESTINAL: No nausea, vomiting, abdominal pain, or diarrhea. GENITOURINARY: She has no Arenas. She is on hemodialysis. PULMONARY: She came in with hemoptysis. No significant congestion, shortness of breath, or secretions currently. SKIN: No rash or itching. EXTREMITY: No extremity pain. NEUROLOGIC: No seizures. No fevers at this time. No pressors. She has hemodialysis line. No Arenas. PAST MEDICAL HISTORY: The patient's past medical history includes the following. The past medical history is obtained from the records. The patient has the following. The patient has a past medical history of end-stage renal disease, on hemodialysis. She has history of fracture of femur, history of weakness, history of chronic kidney disease, difficulty walking, history of gastroesophageal reflux disease, esophagitis, history of hyperlipidemia or dyslipidemia, hypertension, hypothyroidism, polyneuropathy, anemia, parathyroid gland, cataract, carpal tunnel syndrome, essential hypertension, hypothyroidism, and as discussed, she also has history of cervical osteomyelitis and endocarditis per the records. History of hip replacement, weakness, anemia, and parathyroid benign neoplasm. MEDICATIONS: Upon reviewing the MAR, she is on the following medications. She is on Norvasc, Cozaar, Protonix, vitamin B, zinc sulfate, levothyroxine, Prevacid, gabapentin, and Robitussin. The patient is on Robaxin, Ultram, Ambien, and Tylenol. She was given vancomycin and cefepime in the emergency room. Outside medications were noted and reconciliated in the computer. I will review her [facility] records. ALLERGIES: Penicillins. However, she tolerates cefepime. She got a dose in the emergency room. SOCIAL HISTORY: Negative for smoking, alcohol, or drug abuse. FAMILY HISTORY: Noncontributory. Negative for tuberculosis or cancer. PHYSICAL EXAMINATION: VITAL SIGNS: Temperature is 98.4, pulse rate is 72, respiratory rate 24, blood pressure is 142/41, and saturation 95%. She is on 4 liters nasal cannula. Her heart rate has been as high as 96. GENERAL: Weak and responsive. HEAD AND NECK: Oral exam, no thrush. Eye exam, no icterus. Neck is supple. Normocephalic. HEART: Regular. A possible 1/6 systolic murmur. No obvious gallop or friction rub. ABDOMEN: Soft. Positive bowel sounds. Nontender. No rebound. Maybe mildly distended. LUNGS: Bilateral rhonchi. Possible rales with decreased breath sounds. SKIN: No rash or dermatitis. MUSCULOSKELETAL: No effusion or septic arthritis. Lower extremities are without cellulitis. PERIPHERAL VASCULAR: No cyanosis or gangrene. She has hemodialysis line. GENITOURINARY: No Arenas. No phlebitis. She has hemodialysis line. NEUROLOGIC: Generalized weakness. Nonfocal, but responsive. LABORATORY DATA: Laboratory data is as follows. White count 18.9 and hemoglobin 9.3. Creatinine is 3.2. LFTs were noted. Cultures are pending. IMAGING STUDIES: Chest x-ray showed extensive diffuse interstitial and airspace infiltrates versus edema. A CT scan was reviewed and noted. It showed effusion and airspace disease, possible pulmonary edema, large left effusion. Report was noted. ASSESSMENT AND PLAN: 1. The patient has what looks like possible sepsis, SIRS criteria, and elevated white count of 18.9. The patient looks like also she could have pneumonia. She has high risk for aspiration and healthcare-acquired pneumonia. In addition, she comes in with hemoptysis, rule out tuberculosis, pneumonia, and infection. The patient has history of endocarditis and cervical osteomyelitis. The patient has line infection with elevated white count. At this time, we will place the patient on vancomycin, cefepime, and Flagyl. She is allergic to penicillin, but tolerates cefepime. Continue vancomycin and cefepime and Flagyl for sepsis and possible pneumonia. Check cultures, labs, and chest x-ray. She also has possible line infection. Continue vancomycin, cefepime, and Flagyl pending workup. 2. The patient has hemoptysis, rule out tuberculosis, pneumonia, and infection. Check QuantiFERON Gold and also check AFB. The patient is currently in isolation. 3. History of cervical osteomyelitis. We will get records from [facility]. We will check sedimentation rate. 4. History of endocarditis. We will check blood cultures and get records from [facility]. Check echo and again sedimentation rate and check surveillance blood cultures. 5. The patient is on vancomycin and cefepime to have coverage for cervical osteomyelitis and endocarditis, but we will have to see what the pathogens were in the records. 6. Anemia. 7. End-stage renal disease, on hemodialysis. 8. History of fracture of the right femur. 9. History of hypertension. Blood pressure treatment per Dr. Adams. 10. Weakness. 11. Gastroesophageal reflux disease. 12. Hyperlipidemia. 13. Hypothyroidism. 14. History of cataracts and benign neoplasm of the parathyroid. 15. Allergic to penicillin tolerates cephalosporins. 16. Social history is negative. 17. Family history is noncontributory. 18. MAR was noted. 19. Case was discussed with RN. 20. Continue treatment per primary consultants. Leonor Thakkar M.D. DR: MARY JANE JOB#: [id number] CC:
--- NOTE | 2018-09-13 02:30 | Consultation ---
DATE OF CONSULTATION: 09/12/2018 NEPHROLOGY CONSULTATION CONSULTING PHYSICIAN: Dragan Marcum M.D. REFERRING PHYSICIAN: Curtis Adams M.D. REASON FOR CONSULTATION: End-stage renal disease and hemopstysis. HISTORY OF PRESENT ILLNESS: The patient is a 77-year-old lady, who lives in an [facility] and was sent here for hemoptysis. She has end-stage renal disease, on dialysis for about 5 years. She has a dialysis PermCath and is due for dialysis on Monday, Monday, Monday. She apparently has been receiving antibiotics for cervical osteomyelitis. There is a history of fall and a hip fracture and hip replacement and subsequent dislocation of her hip and repeat surgery sometime in the last 3 months. There is a history of hypertension, hypothyroidism, hyperlipidemia, and gastritis. PAST SURGICAL HISTORY: Include hip surgery x2, knee surgery, shoulder surgery, dialysis access, and both arm dialysis catheter. MEDICATIONS: Reviewed and include Tylenol 500 mg t.i.d., amlodipine 5 mg daily, aspirin 81 mg daily, Nephro-Sudha 1 daily, gabapentin 200 mg t.i.d., heparin 5000 units q.12 hours, T-Relief pain ointment 5 times a day, levothyroxine 150 mcg daily, Lidoderm 1 patch daily, losartan 25 mg b.i.d., Artificial Saliva 5 times a day, fish oil 1200 mg t.i.d., Zosyn 2.25 grams q.8 hours, pravastatin 40 mg daily, Protonix 40 mg daily, ropinirole 0.25 mg b.i.d., vancomycin 5 mL p.o. daily, zinc sulfate 220 mg daily, lozenges q.4 hours p.r.n.,, guaifenesin p.r.n., methocarbamol 500 mg q.6 hours p.r.n., tramadol 50 mg q.6 hours p.r.n., Zofran p.r.n., and zolpidem p.r.n. ALLERGIES: She says she is allergic to penicillin, but can take small doses. SYSTEM REVIEW: HEAD, EYES, EARS, NOSE, AND THROAT: Vision and hearing is good. ENDOCRINE: Denies diabetes or thyroid disease. PULMONARY: Chronic shortness of breath. She is wearing oxygen. CARDIAC: Denies angina or MO. GASTROINTESTINAL: Denies ulcers or GI bleeding. GENITOURINARY: She makes little urine. NEUROLOGIC: She had a recent CVA, which does not describe her deficit. PHYSICAL EXAMINATION: GENERAL: The patient is an alert lady seen on dialysis via PermCath. She is alert, in no acute distress. VITAL SIGNS: Reviewed in the computer. HEENT: Sclerae are nonicteric. Ocular motion is intact in all directions. Oral mucosa moist. NECK: No adenopathy. LUNGS: Decreased breath sounds at the bases bilaterally. HEART: Rhythm is regular. I hear no murmur. ABDOMEN: Soft without organomegaly. EXTREMITIES: Show trace edema. She is weak in bed. NEUROLOGIC: She is alert and responsive. Ocular motions intact in all directions. Smile is symmetric. She moves all extremities. LABORATORY AND DIAGNOSTIC DATA: Labs were reviewed on the computer. IMPRESSION: 1. Hemoptysis with abnormal imaging with pleural effusions and parenchymal infiltrates. 2. Cervical osteomyelitis. 3. End-stage renal disease. 4. Anemia of chronic kidney disease and possible blood loss. 5. Pleural effusions. 6. Mild fluid overload. 7. Severe protein-calorie malnutrition. Albumin 1.6. 8. History of gastritis. 9. History of hypothyroidism. PLAN: The patient has a complex history. Currently, she is being admitted for her hemoptysis and pulmonary care as directed by Dr. Adams. Dialysis will be done for maintenance and fluid removal. Home medications is reviewed for end-stage renal disease. She is a high risk patient. This is discussed with the family at the bedside. Dragan Marcum M.D. DR: JH JOB#: [id number] CC:
[2018-09-13 04:00] VITALS: BP 170/83
[2018-09-13 04:27] LABS: BASOPHILS % (AUTO) 1.9 % (0.0-2.0); EOSINOPHILS % (AUTO) 1.1 % (0.0-3.0); HEMATOCRIT 25.8 % (37.0-47.0); HEMOGLOBIN 8.5 G/DL (12.0-16.0); LYMPHOCYTES % (AUTO) 8.1 % (20.0-45.0); MEAN CORPUSCULAR VOLUME 106 FL (80-99); MONOCYTES % (AUTO) 6.7 % (1.0-10.0); NEUTROPHILS % (AUTO) 82.2 % (45.0-75.0); PLATELET COUNT 215 K/UL (150-450); RED BLOOD COUNT 2.42 M/UL (4.20-5.40); RED CELL DISTRIBUTION WIDTH 18.9 % (11.6-14.8); WHITE BLOOD COUNT 11.4 K/UL (4.8-10.8)
[2018-09-13 04:45] LABS: ALANINE AMINOTRANSFERASE 8 U/L (12-78); ALBUMIN 1.5 G/DL (3.4-5.0); ALBUMIN/GLOBULIN RATIO 0.4 (1.0-2.7); ALKALINE PHOSPHATASE 113 U/L (46-116); ANION GAP 9 mmol/L (5-15); ASPARTATE AMINO TRANSFERASE 19 U/L (15-37); BILIRUBIN,TOTAL 0.5 MG/DL (0.2-1.0); BLOOD UREA NITROGEN 27 mg/dL (7-18); CALCIUM 8.2 MG/DL (8.5-10.1); CARBON DIOXIDE 28 MMOL/L (21-32); CHLORIDE 101 MMOL/L (98-107); CREATININE 2.8 MG/DL (0.55-1.30); POTASSIUM 3.7 MMOL/L (3.5-5.1); SODIUM 138 MMOL/L (136-145)
--- NOTE | 2018-09-13 04:45 | Consultation ---
DATE OF CONSULTATION: 09/12/2018 CARDIOLOGY CONSULTATION CONSULTING PHYSICIAN: Edward Mendez M.D. REQUESTING PHYSICIAN: Curtis Adams M.D. REASON: Management of endocarditis. HISTORY OF PRESENT ILLNESS: This is a 77-year-old female who resides at a [place] [facility] facility and developed hemoptysis and shortness of breath with some hypoxia prompting her to be transferred to the emergency room. The patient has a known history of endocarditis of both aortic and mitral valve. I have been asked to assist with further cardiovascular care. PAST MEDICAL HISTORY: Includes end-stage renal disease, on hemodialysis, hypertension, hyperlipidemia, hypothyroidism, hyperparathyroidism, history of parathyroidectomy, history of right total hip replacement, possible left renal nephroma, cervical osteomyelitis, history of endocarditis, history of C. difficile colitis, chronic liver disease, chronic obstructive pulmonary disease, aortic and mitral valve vegetations. ALLERGIES: Penicillin. Advanced directives, DNR. MEDICATIONS: Prior to admission, reviewed and reconciled. SOCIAL HISTORY: Notable for history of alcohol abuse. No smoking or substance abuse known. REVIEW OF SYSTEMS: Not obtainable from the patient. All pertinent data is obtained from review of prior records and hospitalizations. 30 minutes time spent. PHYSICAL EXAMINATION: GENERAL: The patient is alert, responsive, but ill appearing. She is on supplemental oxygen mask. VITAL SIGNS: Blood pressure 170/90, heart rate 70, and respiratory rate 20. HEENT: Temporal wasting. NECK: Jugular venous pressure is elevated. Dialysis catheter in the left subclavian region. LUNGS: With bilateral rales. CARDIAC: Regular rhythm and rate. Normal S1, S2 with a 2/6 systolic murmur at the base. ABDOMEN: Soft with mild ascites. EXTREMITIES: With 2+ dependent edema. LABORATORY AND DIAGNOSTIC DATA: White count 18.9. Natriuretic peptide is over 8000. Chest x-ray revealed loculated pleural effusions, left greater than right. Chest x-ray also noted bilateral infiltrates. EKG revealed sinus rhythm and poor R-wave progression suggesting possible anterior infarction. IMPRESSION: 1. Healthcare-acquired pneumonia with hemoptysis and pleural effusions. 2. End-stage renal disease, on hemodialysis. 3. Aortic and mitral valve endocarditis, status post treatment. 4. Renal mass, possibly malignant. 5. Cervical osteomyelitis. 6. Cerebrovascular disease with history of cerebrovascular accident. 7. Hypertensive heart disease with diastolic dysfunction. 8. Hypoxia. PLAN: 1. Panculture. 2. Empiric antibiotics. 3. Respiratory hygiene. 4. Echocardiogram. 5. Titrate anti-failure regimen. 6. Cardiac monitoring. 7. DVT prophylaxis. 8. High risk due to multiple comorbidities. Edward Mendez M.D. DR: MONTY JOB#: [id number] CC:
[2018-09-13] MEDS ORDERED: Vancomycin 1 GM in NS 275 ML IVPB ONE (06:00)
[2018-09-13] MEDS ORDERED: Heparin Sod 1000 units/ml 10ml IV PRN (06:00)
[2018-09-13] MEDS: Methocarbamol 500mg tab ORAL PRN ×2 (06:44→19:34)
[2018-09-13] MEDS: traMADol 50mg tab ORAL PRN (06:44)
--- NOTE | 2018-09-13 07:10 | NUR ---
NURSE NOTES: Received report from SUNG Alfredo. Patient is resting in bed, in stable condition. No s/sx of SOB, breathing is even and unlabored. Observed no presence of pain or discomfort at this time. Bed is in lowest position, brakes engaged. Call light is kept within easy reach. Will continue to monitor patient.
--- NOTE | 2018-09-13 07:20 | NUR ---
HAND-OFF: Report given to SUNG Reyes.
[2018-09-13] MEDS: Losartan 25mg tab ORAL SCH (07:56)
[2018-09-13 08:00] VITALS: BP 142/66
[2018-09-13] MEDS: Zinc Sulfate 220mg cap ORAL SCH (08:09)
[2018-09-13] MEDS: Nephrovite tab (Rena-Vite) ORAL SCH (08:09)
--- NOTE | 2018-09-13 08:27 | NUR ---
RADIOLOGY DEPT., CHEST X-RAY DONE.-P.DYE
[2018-09-13] MEDS ORDERED: Nephrovite tab (Rena-Vite) ORAL SCH (09:00)
--- NOTE | 2018-09-13 09:18 | Diagnostic Imaging Report ---
Indication: Shortness of breath Technique: One view of the chest Comparison: 09/12/2018 Findings: Evidence of slightly better aeration in the right perihilar region, with decreased consolidation and atelectasis. Generalized bilateral diffuse interstitial and airspace disease may be slightly improved since prior study overall, although still persistent and extensive. Bilateral left greater than right pleural effusions persist, may be slightly improved on the left. Left jugular tunneled dialysis catheter remains. Left jugular central venous catheter remains with its tip projected retrograde into the azygos vein. The heart is upper limits normal in size. The edge of a left shoulder prosthesis is noted Impression: Suggestion of slightly improved but still persists and extensive bilateral parenchymal disease. Possible slight improvement of still large left pleural effusion Other findings as noted
--- NOTE | 2018-09-13 11:54 | NUR ---
NURSE NOTES: Contacted and informed Dr. Darden of patient ABG levels from yesterday, 09/12/18. Informed MD of pCO2 level fo 60.2 mmHg. Patient has no c/o SOB, on 2LNC with SpO2 of 97%. MD acknowledged ordered BiPap 03/07 titrate FiO2 to keep SpO2 between 90-94%, PRN for shortness of breath. Obtain ABG x 1 tomorrow AM while patient is on BiPap. Order entered, noted, and carried out. Will continue to monitor patient. Addendum: 09/13/18 at 1158 by DUANE WAKEFIELD RN NURSE NOTES: Dr. Darden is covering physician for Dr. Adams.
[2018-09-13 12:00] VITALS: BP 145/66
--- NOTE | 2018-09-13 14:13 | Nephrology Progress Note ---
Assessment/Plan Problem List: (1) CHF (congestive heart failure), NYHA class II (2) Hemoptysis, unspecified (3) Osteomyelitis of cervical spine (4) ESRD (end stage renal disease) on dialysis (5) Bilateral pleural effusion Plan dialysis 09/12 12 14 for fluid overload Subjective Constitutional: Reports: weakness HEENT: Reports: no symptoms Genitourinary: Reports: incontinence Neurologic/Psychiatric: Reports: pre-existing deficit Objective Objective Last 24 Hour Vital Signs Date Time Temp Pulse Resp B/P (MAP) Pulse Ox O2 Delivery O2 Flow Rate FiO2 09/13/18 12:00 85 09/13/18 12:00 Nasal Cannula 4.0 09/13/18 12:00 98.3 85 20 145/66 (92) 93 09/13/18 08:00 97.7 88 20 142/66 (91) 97 09/13/18 08:00 88 09/13/18 08:00 Nasal Cannula 4.0 09/13/18 07:53 96 Nasal Cannula 4.0 36 09/13/18 04:00 Nasal Cannula 4.0 09/13/18 04:00 97.6 90 20 170/83 (112) 98 09/13/18 03:31 77 09/13/18 00:00 Nasal Cannula 4.0 09/13/18 00:00 99.0 87 20 146/51 (82) 100 09/12/18 23:24 77 09/12/18 20:00 Nasal Cannula 4.0 09/12/18 20:00 98.3 75 19 130/69 (89) 99 09/12/18 19:21 74 09/12/18 16:00 98.4 72 24 142/41 (74) 95 09/12/18 16:00 Nasal Cannula 4.0 09/12/18 15:20 71 Intake and Output 09/12/18 09/13/18 19:00 07:00 Intake Total 300 ml 400 ml Balance 300 ml 400 ml Intake Oral 300 ml 200 ml IV Total 200 ml Laboratory Tests 09/13/18 03:50: White Blood Count 11.4H, Red Blood Count 2.42L, Hemoglobin 8.5L, Hematocrit 25.8L, Mean Corpuscular Volume 106H, Mean Corpuscular Hemoglobin 35.1H, Mean Corpuscular Hemoglobin Concent 33.0, Red Cell Distribution Width 18.9H, Platelet Count 215, Mean Platelet Volume 6.7, Neutrophils (%) (Auto) 82.2H, Lymphocytes (%) (Auto) 8.1L, Monocytes (%) (Auto) 6.7, Eosinophils (%) (Auto) 1.1, Basophils (%) (Auto) 1.9, Erythrocyte Sedimentation Rate 104H, Sodium Level 138, Potassium Level 3.7, Chloride Level 101, Carbon Dioxide Level 28, Anion Gap 9, Blood Urea Nitrogen 27H, Creatinine 2.8H, Estimat Glomerular Filtration Rate , Glucose Level 91, Calcium Level 8.2L, Total Bilirubin 0.5, Aspartate Amino Transf (AST/SGOT) 19, Alanine Aminotransferase (ALT/SGPT) 8L, Alkaline Phosphatase 113, Total Protein 5.4L, Albumin 1.5L, Globulin 3.9, Albumin/Globulin Ratio 0.4L, Random Vancomycin Level 10.7, TB Test (T-Spot) [ Pending], TB Test Nil Control (T-Spot) [Pending], TB Test Panel A (T-Spot) [ Pending], TB Test Panel B (T-Spot) [Pending], TB Test Positive Control (T-Spot) [Pending] Height (Feet): 5 Height (Inches): 4.00 Weight (Pounds): 120 General Appearance: no apparent distress, mild distress EENT: normal ENT inspection Neck: normal alignment Cardiovascular: regular rhythm Respiratory/Chest: rhonchi - bilaterally Abdomen: soft, no organomegaly Extremities: moderate edema Neurologic: convention planner II-XII grossly normal Dragan Marcum MD Sep 13, 2018 14:13
--- NOTE | 2018-09-13 14:30 | NUR ---
NURSE NOTES: Called [facility] and informed of Hemodialysis order. Per [facility] personnel acknowledged and informed this nurse will informed dialysis nurse. Noted. Will continue to monitor patient.
[2018-09-13 16:00] VITALS: BP 137/84
[2018-09-13] MEDS: HYDROcodone/Acetamin 5/325 tab ORAL PRN (18:37)
[2018-09-13] MEDS ORDERED: ZOFRAN 4 MG4 MG/2 ML IV ×2 (19:28)
[2018-09-13] MEDS ORDERED: ACETAMINOPHEN500 M3 ORAL (19:28)
[2018-09-13] MEDS ORDERED: FIRVANQ25 MG/1 ML PO (19:28)
[2018-09-13] MEDS ORDERED: ADULT WAL-100 MG/5 M ORAL (19:28)
[2018-09-13] MEDS ORDERED: LIDODERM700 M1 TDERMAL (19:28)
[2018-09-13] MEDS ORDERED: ATORVASTATIN CA80 MG ORAL (19:28)
[2018-09-13] MEDS ORDERED: HEPARIN SO5000 UNIT2 SUBQ (19:28)
[2018-09-13] MEDS ORDERED: [UNRECOGNIZED DRUG - OTHER] MM (19:28)
[2018-09-13] MEDS ORDERED: DOCU LIQUI50 MG/5 M1 PO (19:28)
[2018-09-13] MEDS ORDERED: GABAPENTIN300 MG ORAL (19:28)
[2018-09-13] MEDS ORDERED: ROPINIROLE HC0.25 MG PO (19:28)
[2018-09-13] MEDS ORDERED: ASPIRIN325 MG ORAL (19:28)
[2018-09-13] MEDS ORDERED: OMEGA-3 ACID ETH1 GM PO (19:28)
--- NOTE | 2018-09-13 19:28 | NUR ---
HAND-OFF: Report given to SUNG Kumar.
--- NOTE | 2018-09-13 19:31 | NUR ---
NURSE NOTES: Received patient from SUNG Reyes. patient is resting in bed, verbally responsive to commands. denies pain at this time. patient is on 2 L O2 NC. no s/sx of respiratory distress at this time. Central catheter is patent and intact. bed in lowest position and locked, siderails up X2, call light within reach. will continue to monitor.
[2018-09-13 20:00] VITALS: BP 130/54
[2018-09-13] MEDS: Dyna-Hex 2% Top Sol 2oz TOPIC SCH (20:55)
[2018-09-13] MEDS: Zolpidem 5mg tab ORAL PRN (22:04)
--- NOTE | 2018-09-13 23:30 | Pulmonology Progress Note ---
Assessment/Plan Assessment/Plan Pulmonary Progress Note HPI: This is a 69-year-old woman, who was admitted from the residential to the emergency department via paramedics because of moderate hemoptysis which began on the day of admission. She states that she just began coughing up fresh blood without chest pain. She has some shortness of breath and had low oxygen saturation. The patient has a history of end-stage renal disease, on dialysis, alcohol abuse, mastopexy, hypertension, hyperlipidemia, hypothyroidism, hyperparathyroidism, parathyroidectomy, and right hip replacement. She has a left renal mass suspicious for carcinoma. She was recently hospitalized at [facility] and found to have a subacute stroke in the right centrum semiovale. She was also found to have cervical osteomyelitis of the odontoid and left C1 lateral mass due to previous endocarditis and bacteremia. She has a history of C. diff colitis. She had ascites and thought to be due to chronic liver disease. She is known to have chronic obstructive pulmonary disease with centrilobular emphysema. 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 ALLERGIES: Penicillin. CODE STATUS: DNR according to my discussion with her and a POLST is provided. MEDICATIONS: Tylenol, amlodipine, baby aspirin, vitamins, gabapentin, heparin, thyroxine 150 mcg daily, losartan 25 mg twice daily, Robaxin, Zosyn, Pravachol, Protonix, Requip, tramadol, vancomycin suspension, zinc, Zofran, and Ambien. REVIEW OF SYSTEMS: Cannot be obtained due to the patient's acute illness. PHYSICAL EXAM: GENERAL: The patient is alert and responsive, but seriously ill. VITAL SIGNS: Noted The patient appears frail and chronically ill. HEENT: Head is normocephalic with temporal muscle wasting. NECK: No jugular venous distention. There is a dialysis catheter in the left subclavian vein. CHEST: Has rales. CARDIAC: Rhythm is regular. ABDOMEN: Soft with ascites noted. Liver and spleen cannot be felt. EXTREMITIES: A 2+ edema. No clubbing or cyanosis. LABORATORY STUDIES: Showed a white count of 18,900. For reference, her recent white count at [facility] was 9300 on 09/09/2018. Blood gas shows pH 7.32, pCO2 60, and pO2 is 113 consistent with hypercarbic respiratory failure, acute on chronic. Chemistry shows elevated BUN and creatinine consistent with renal failure. Blood sugar is 139. Natriuretic peptide is elevated at 8100. Troponin is negative. INR is 1.1. Imaging shows loculated pleural effusions, left greater than right and basilar atelectasis and infiltrates. IMPRESSION: 1. Hemoptysis, possibly due to pneumonia, tuberculosis is to be considered. Metastatic neoplasm seems unlikely. Recent chest x-ray at [facility] showed atelectasis at right base and pleural effusions and infiltrate on the left side. 2. End-stage renal disease. On dialysis. 3. Cervical osteomyelitis. 4. Recent stroke. 5. Renal mass. 6. Penicillin allergy. 7. 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 8. Peripheral artery disease. 9. Renal mass. 10. Clostridium difficile colitis. PLAN: The patient is very seriously ill. She will be DNR according to her wishes. Await sputum for acid fast bacilli and tuberculosis QuantiFERON blood test. If these are negative, then bronchoscopy should be undertaken. Antibiotics will be continued. We will get Infectious Disease and Nephrology consultation at this time. Subjective ROS Limited/Unobtainable: No Allergies: Coded Allergies: PENICILLINS (Unverified Allergy, Unknown, 09/12/18) Objective Last 24 Hour Vital Signs Date Time Temp Pulse Resp B/P (MAP) Pulse Ox O2 Delivery O2 Flow Rate FiO2 09/13/18 20:00 96.4 83 22 130/54 (79) 96 09/13/18 20:00 Nasal Cannula 2.0 09/13/18 19:48 96 Nasal Cannula 4.0 36 09/13/18 19:12 80 09/13/18 16:00 97.9 81 20 137/84 (101) 95 09/13/18 16:00 84 09/13/18 16:00 Nasal Cannula 4.0 09/13/18 12:00 85 09/13/18 12:00 Nasal Cannula 4.0 09/13/18 12:00 98.3 85 20 145/66 (92) 93 09/13/18 08:00 97.7 88 20 142/66 (91) 97 09/13/18 08:00 88 09/13/18 08:00 Nasal Cannula 4.0 09/13/18 07:53 96 Nasal Cannula 4.0 36 09/13/18 04:00 Nasal Cannula 4.0 09/13/18 04:00 97.6 90 20 170/83 (112) 98 09/13/18 03:31 77 09/13/18 00:00 Nasal Cannula 4.0 09/13/18 00:00 99.0 87 20 146/51 (82) 100 Intake and Output 09/12/18 09/13/18 18:59 06:59 Intake Total 300 ml 400 ml Balance 300 ml 400 ml Intake Oral 300 ml 200 ml IV Total 200 ml Microbiology Date/Time Source Procedure Growth Status 09/12/18 04:00 Rectum Received Laboratory Tests 09/13/18 03:50: White Blood Count 11.4H, Red Blood Count 2.42L, Hemoglobin 8.5L, Hematocrit 25.8L, Mean Corpuscular Volume 106H, Mean Corpuscular Hemoglobin 35.1H, Mean Corpuscular Hemoglobin Concent 33.0, Red Cell Distribution Width 18.9H, Platelet Count 215, Mean Platelet Volume 6.7, Neutrophils (%) (Auto) 82.2H, Lymphocytes (%) (Auto) 8.1L, Monocytes (%) (Auto) 6.7, Eosinophils (%) (Auto) 1.1, Basophils (%) (Auto) 1.9, Erythrocyte Sedimentation Rate 104H, Sodium Level 138, Potassium Level 3.7, Chloride Level 101, Carbon Dioxide Level 28, Anion Gap 9, Blood Urea Nitrogen 27H, Creatinine 2.8H, Estimat Glomerular Filtration Rate , Glucose Level 91, Calcium Level 8.2L, Total Bilirubin 0.5, Aspartate Amino Transf (AST/SGOT) 19, Alanine Aminotransferase (ALT/SGPT) 8L, Alkaline Phosphatase 113, Total Protein 5.4L, Albumin 1.5L, Globulin 3.9, Albumin/Globulin Ratio 0.4L, Random Vancomycin Level 10.7, TB Test (T-Spot) [ Pending], TB Test Nil Control (T-Spot) [Pending], TB Test Panel A (T-Spot) [ Pending], TB Test Panel B (T-Spot) [Pending], TB Test Positive Control (T-Spot) [Pending] Current Medications Medications (Trade) Dose Ordered Sig/[place] Route PRN Reason Start Time Stop Time Status Last Admin Dose Admin Acetaminophen (Tylenol) 650 mg Q6H PRN ORAL Mild Pain/Temp > 100.5 09/12/18 11:30 10/12/18 11:29 Acetaminophen/ Hydrocodone Bitart (Bruceton 5/325) 1 tab Q4H PRN ORAL Moderate Pain (Pain Scale 4-6) 09/13/18 14:15 09/20/18 14:14 09/13/18 18:37 Amlodipine Besylate (Norvasc) 5 mg DAILY ORAL 09/13/18 09:00 10/13/18 08:59 Cefepime HCl 0.5 gm/Dextrose 50 ml @ 100 mls/hr Q24HRS IVPB 09/13/18 04:00 09/20/18 03:59 09/13/18 03:31 Chlorhexidine Gluconate (Mira-Hex 2%) 1 applic DAILY@2000 TOPIC 09/13/18 20:00 10/13/18 19:59 09/13/18 20:55 Epoetin Rudolph (Epoetin Rudolph(ESRD on dialysis)) 2,000 unit MON-MON-MON SUBQ 09/12/18 21:00 10/12/18 20:59 09/12/18 21:35 Epoetin Rudolph (Epoetin Rudolph(ESRD on dialysis)) 3,000 unit MON- SUBQ 09/12/18 21:00 10/12/18 20:59 09/12/18 21:35 Gabapentin (Neurontin) 100 mg THREE TIMES A DAY ORAL 09/12/18 13:00 10/12/18 12:59 09/13/18 17:53 Guaifenesin (Robitussin) 100 mg Q4H PRN ORAL For Cough 09/12/18 13:00 10/12/18 12:59 Heparin Sodium (Porcine) (Heparin Sod 1000 units/ml 10ml) 500 unit ONCE PRN IV dialysis 09/13/18 06:00 09/13/18 23:59 Heparin Sodium (Porcine) (Heparin Sod 1000 units/ml 10ml) 500 unit ONCE PRN IV FOR HD USE ONLY 09/14/18 06:00 09/14/18 23:59 Levothyroxine Sodium (Synthroid) 150 mcg Q24H ORAL 09/13/18 06:30 10/13/18 06:29 09/13/18 05:35 Losartan Potassium (Cozaar) 25 mg DAILY ORAL 09/13/18 09:00 10/13/18 08:59 Methocarbamol (Robaxin) 500 mg QIDPRN PRN ORAL MUSCLE PAIN 09/12/18 12:30 10/12/18 12:29 09/13/18 19:34 Metronidazole 100 ml @ 100 mls/hr Q8HR IVPB 09/12/18 22:00 09/19/18 21:59 09/13/18 22:04 Pantoprazole (Protonix) 40 mg DAILY ORAL 09/13/18 09:00 10/13/18 08:59 09/13/18 08:09 Pravastatin Sodium (Pravachol) 40 mg BEDTIME ORAL 09/12/18 21:00 10/12/18 20:59 09/13/18 20:55 Sodium Chloride 1,000 ml @ 500 mls/hr Q2H PRN IVLG sbp<90 during hd 09/13/18 06:00 09/13/18 23:59 Sodium Chloride 1,000 ml @ 500 mls/hr Q2H PRN IVLG sbp<90 during hd 09/14/18 06:00 09/14/18 23:59 Vancomycin HCl (Vanco rx to dose) 1 ea DAILY PRN MISC Per rx protocol 09/12/18 18:45 10/12/18 18:44 Vitamin B Complex/ Vit C/Folic Acid (Nephrovite) 1 tab DAILY ORAL 09/13/18 09:00 10/13/18 08:59 09/13/18 08:09 Zinc Sulfate (Zinc Sulfate) 220 mg DAILY ORAL 09/13/18 09:00 10/13/18 08:59 09/13/18 08:09 Zolpidem Tartrate (Ambien) 5 mg BEDTIME PRN ORAL Insomnia 09/12/18 12:30 09/19/18 12:29 09/13/18 22:04 Edward Darden MD Sep 13, 2018 23:30
[2018-09-14] VITALS: BP 122/59
[2018-09-14] MEDS: HYDROcodone/Acetamin 5/325 tab ORAL PRN ×4 (03:44→23:13)
[2018-09-14 04:00] VITALS: BP 140/67
--- NOTE | 2018-09-14 05:30 | Progress Note ---
DATE: 09/13/2018 CARDIOLOGY PROGRESS NOTE SUBJECTIVE: The patient has continued congestion, shortness of breath, and general malaise. She is status post hemodialysis . OBJECTIVE: VITAL SIGNS: Blood pressure 145/66, pulse 85, and respirations 20. LUNGS: Clear. CARDIAC: Regular. Normal S1, S2. A 2/6 systolic murmur at base. ABDOMEN: Soft and nontender. EXTREMITIES: No edema. LABORATORY DATA: Sodium 138, potassium 3.7, bicarbonate 28, BUN 27, and creatinine 2.8. Albumin 1.5. White count 11.4, hemoglobin 8.5, and sedimentation rate over 100. Chest x-ray revealed large left pleural effusion and bilateral parenchymal disease. IMPRESSION: 1. Healthcare-acquired pneumonia. 2. Pleural effusion. 3. Endocarditis. 4. Acute on chronic diastolic congestive heart failure. 5. Peripheral artery disease. 6. End-stage renal disease. PLAN: 1. Antimicrobials. 2. Review echocardiogram. 3. Await sputum studies and cultures. 4. Hemodialysis with ultrafiltration. 5. Possible thoracentesis. Edward Mendez M.D. DR: SILVANA JOB#: [id number] CC:
[2018-09-14] MEDS ORDERED: Heparin Sod 1000 units/ml 10ml IV PRN (06:00)
--- NOTE | 2018-09-14 07:10 | NUR ---
HAND-OFF: Report given to SUNG Reyes. patient is in stable condition.
--- NOTE | 2018-09-14 07:19 | NUR ---
NURSE NOTES: Received report from SUNG Kumar. Patient is resting in bed, in stable condition. No s/sx of SOB, breathing is even and unlabored. Currently on BiPAP with prescribed settings. Observed no presence of pain or discomfort at this time. Bed is in lowest position, brakes engaged. Call light is kept within easy reach. Will continue to monitor patient.
--- NOTE | 2018-09-14 07:50 | Nephrology Progress Note ---
Assessment/Plan Problem List: (1) CHF (congestive heart failure), NYHA class II (2) Hemoptysis, unspecified (3) Osteomyelitis of cervical spine (4) ESRD (end stage renal disease) on dialysis (5) Bilateral pleural effusion (6) Malnutrition Plan dialysis 09/12 for fluid overload, stop amlodipine to mitigate hypotension , pulm care Subjective Constitutional: Reports: weakness HEENT: Reports: no symptoms Genitourinary: Reports: incontinence Neurologic/Psychiatric: Reports: pre-existing deficit Objective Objective Last 24 Hour Vital Signs Date Time Temp Pulse Resp B/P (MAP) Pulse Ox O2 Delivery O2 Flow Rate FiO2 09/14/18 06:13 77 18 99 Facial 30 09/14/18 04:00 Nasal Cannula 2.0 09/14/18 04:00 97.2 77 16 140/67 (91) 100 09/14/18 03:35 78 09/14/18 00:00 Nasal Cannula 2.0 09/14/18 00:00 97.0 69 16 122/59 (80) 100 09/13/18 23:52 69 09/13/18 20:00 96.4 83 22 130/54 (79) 96 09/13/18 20:00 Nasal Cannula 2.0 09/13/18 19:48 96 Nasal Cannula 4.0 36 09/13/18 19:12 80 09/13/18 16:00 97.9 81 20 137/84 (101) 95 09/13/18 16:00 84 09/13/18 16:00 Nasal Cannula 4.0 09/13/18 12:00 85 09/13/18 12:00 Nasal Cannula 4.0 09/13/18 12:00 98.3 85 20 145/66 (92) 93 09/13/18 08:00 97.7 88 20 142/66 (91) 97 09/13/18 08:00 88 09/13/18 08:00 Nasal Cannula 4.0 09/13/18 07:53 96 Nasal Cannula 4.0 36 Intake and Output 09/13/18 09/14/18 19:00 07:00 Intake Total 500 ml 270 ml Output Total 2500 ml Balance -2000 ml 270 ml Intake Oral 500 ml IV Total 150 ml Other 120 ml Output Hemodialysis UF 2500 ml Height (Feet): 5 Height (Inches): 4.00 Weight (Pounds): 132 General Appearance: mild distress EENT: normal ENT inspection Neck: normal alignment Cardiovascular: regular rhythm Respiratory/Chest: rhonchi - bilaterally, other - on bipap Abdomen: non tender, soft Extremities: trace edema Neurologic: cold storage superintendent II-XII grossly normal Dragan Marcum MD Sep 14, 2018 07:50
[2018-09-14 08:00] VITALS: BP 133/71
[2018-09-14] MEDS: Losartan 25mg tab ORAL SCH (09:00)
[2018-09-14 09:04] LABS: BASOPHILS % (AUTO) 1.4 % (0.0-2.0); EOSINOPHILS % (AUTO) 1.7 % (0.0-3.0); HEMATOCRIT 25.8 % (37.0-47.0); HEMOGLOBIN 8.4 G/DL (12.0-16.0); LYMPHOCYTES % (AUTO) 11.3 % (20.0-45.0); MEAN CORPUSCULAR VOLUME 106 FL (80-99); MONOCYTES % (AUTO) 5.3 % (1.0-10.0); NEUTROPHILS % (AUTO) 80.3 % (45.0-75.0); PLATELET COUNT 214 K/UL (150-450); RED BLOOD COUNT 2.44 M/UL (4.20-5.40); RED CELL DISTRIBUTION WIDTH 18.6 % (11.6-14.8); WHITE BLOOD COUNT 8.2 K/UL (4.8-10.8)
[2018-09-14 09:23] LABS: ALANINE AMINOTRANSFERASE 9 U/L (12-78); ALBUMIN 1.5 G/DL (3.4-5.0); ALBUMIN/GLOBULIN RATIO 0.4 (1.0-2.7); ALKALINE PHOSPHATASE 111 U/L (46-116); ANION GAP 8 mmol/L (5-15); ASPARTATE AMINO TRANSFERASE 21 U/L (15-37); BILIRUBIN,TOTAL 0.6 MG/DL (0.2-1.0); BLOOD UREA NITROGEN 24 mg/dL (7-18); CALCIUM 7.9 MG/DL (8.5-10.1); CARBON DIOXIDE 29 MMOL/L (21-32); CHLORIDE 100 MMOL/L (98-107); CREATININE 2.7 MG/DL (0.55-1.30); POTASSIUM 3.5 MMOL/L (3.5-5.1); SODIUM 137 MMOL/L (136-145)
[2018-09-14] MEDS: Nephrovite tab (Rena-Vite) ORAL SCH (09:25)
[2018-09-14] MEDS: Zinc Sulfate 220mg cap ORAL SCH (09:25)
[2018-09-14 12:00] VITALS: BP 132/58
[2018-09-14] MEDS ORDERED: Vancomycin 1gm/D5W 275ml IVPB SCH ×2 (12:00)
[2018-09-14] MEDS: Methocarbamol 500mg tab ORAL PRN (13:21)
--- NOTE | 2018-09-14 13:25 | Pulmonology Progress Note ---
Assessment/Plan Assessment/Plan Pulmonary Progress Note HPI: This is a 69-year-old woman, who was admitted from the skilled nursing to the emergency department via paramedics because of moderate hemoptysis which began on the day of admission. She states that she just began coughing up fresh blood without chest pain. She has some shortness of breath and had low oxygen saturation. The patient has a history of end-stage renal disease, on dialysis, alcohol abuse, mastopexy, hypertension, hyperlipidemia, hypothyroidism, hyperparathyroidism, parathyroidectomy, and right hip replacement. She has a left renal mass suspicious for carcinoma. She was recently hospitalized at [facility] and found to have a subacute stroke in the right centrum semiovale. She was also found to have cervical osteomyelitis of the odontoid and left C1 lateral mass due to previous endocarditis and bacteremia. She has a history of C. diff colitis. She had ascites and thought to be due to chronic liver disease. She is known to have chronic obstructive pulmonary disease with centrilobular emphysema. 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 No new complaints ALLERGIES: Penicillin. CODE STATUS: DNR - POLST is provided. MEDICATIONS: Tylenol, amlodipine, baby aspirin, vitamins, gabapentin, heparin, thyroxine 150 mcg daily, losartan 25 mg twice daily, Robaxin, Zosyn, Pravachol, Protonix, Requip, tramadol, vancomycin suspension, zinc, Zofran, and Ambien. REVIEW OF SYSTEMS: Cannot be obtained due to the patient's acute illness. PHYSICAL EXAM: GENERAL: The patient is alert and responsive, but seriously ill. VITAL SIGNS: Noted The patient appears frail and chronically ill. HEENT: Head is normocephalic with temporal muscle wasting. NECK: No jugular venous distention. There is a dialysis catheter in the left subclavian vein. CHEST: Has rales. CARDIAC: Rhythm is regular. ABDOMEN: Soft with ascites noted. Liver and spleen cannot be felt. EXTREMITIES: A 2+ edema. No clubbing or cyanosis. LABORATORY STUDIES: Showed a white count of 18,900. For reference, her recent white count at [facility] was 9300 on 09/09/2018. Blood gas shows pH 7.32, pCO2 60, and pO2 is 113 consistent with hypercarbic respiratory failure, acute on chronic. Chemistry shows elevated BUN and creatinine consistent with renal failure. Blood sugar is 139. Natriuretic peptide is elevated at 8100. Troponin is negative. INR is 1.1. Imaging shows loculated pleural effusions, left greater than right and basilar atelectasis and infiltrates. IMPRESSION: 1. Hemoptysis, possibly due to pneumonia, tuberculosis is to be considered. Metastatic neoplasm seems unlikely. Recent chest x-ray at [facility] showed atelectasis at right base and pleural effusions and infiltrate on the left side. 2. End-stage renal disease. On dialysis. 3. Cervical osteomyelitis. 4. Recent stroke. 5. Renal mass. 6. Penicillin allergy. 7. 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 8. Peripheral artery disease. 9. Renal mass. 10. Clostridium difficile colitis. PLAN: The patient is very seriously ill. She will be DNR according to her wishes. Await sputum for acid fast bacilli and tuberculosis QuantiFERON blood test. If these are negative, then bronchoscopy should be undertaken. Antibiotics will be continued. We will get Infectious Disease and Nephrology consultation at this time. Subjective ROS Limited/Unobtainable: No Allergies: Coded Allergies: PENICILLINS (Unverified Allergy, Unknown, 09/12/18) Objective Last 24 Hour Vital Signs Date Time Temp Pulse Resp B/P (MAP) Pulse Ox O2 Delivery O2 Flow Rate FiO2 09/14/18 12:00 71 09/14/18 12:00 Nasal Cannula 2.0 09/14/18 12:00 98.1 72 20 132/58 (82) 100 09/14/18 08:25 76 18 100 09/14/18 08:25 100 Nasal Cannula 2.0 28 09/14/18 08:00 97.7 74 19 133/71 (91) 100 09/14/18 08:00 68 09/14/18 08:00 Nasal Cannula 2.0 09/14/18 06:13 77 18 99 Facial 30 09/14/18 04:00 Nasal Cannula 2.0 09/14/18 04:00 97.2 77 16 140/67 (91) 100 09/14/18 03:35 78 09/14/18 00:00 Nasal Cannula 2.0 09/14/18 00:00 97.0 69 16 122/59 (80) 100 09/13/18 23:52 69 09/13/18 20:00 96.4 83 22 130/54 (79) 96 09/13/18 20:00 Nasal Cannula 2.0 09/13/18 19:48 96 Nasal Cannula 4.0 36 09/13/18 19:12 80 09/13/18 16:00 97.9 81 20 137/84 (101) 95 09/13/18 16:00 84 09/13/18 16:00 Nasal Cannula 4.0 Intake and Output 09/13/18 09/14/18 19:00 07:00 Intake Total 500 ml 270 ml Output Total 2500 ml Balance -2000 ml 270 ml Intake Oral 500 ml IV Total 150 ml Other 120 ml Output Hemodialysis UF 2500 ml Microbiology Date/Time Source Procedure Growth Status 09/12/18 02:05 Blood Blood Culture - Preliminary NO GROWTH AFTER 48 HOURS Resulted 09/12/18 01:55 Blood Blood Culture - Preliminary NO GROWTH AFTER 48 HOURS Resulted 09/13/18 07:25 Sputum Induced Gram Stain - Final Resulted 09/13/18 07:25 Sputum Induced Sputum Culture Pending Resulted 09/12/18 04:00 Nasal Nares MRSA Culture - Final NO METHICILLIN RESISTANT STAPH AUREUS... Complete 09/12/18 04:00 Rectum VRE Culture - Final NO VANCOMYCIN RESISTANT ENTEROCOCCUS ... Complete 09/12/18 04:00 Rectum Received Laboratory Tests 09/14/18 08:10: White Blood Count 8.2, Red Blood Count 2.44L, Hemoglobin 8.4L, Hematocrit 25.8L , Mean Corpuscular Volume 106H, Mean Corpuscular Hemoglobin 34.3H, Mean Corpuscular Hemoglobin Concent 32.4, Red Cell Distribution Width 18.6H, Platelet Count 214, Mean Platelet Volume 6.4L, Neutrophils (%) (Auto) 80.3H, Lymphocytes (%) (Auto) 11.3L, Monocytes (%) (Auto) 5.3, Eosinophils (%) (Auto) 1.7, Basophils (%) (Auto) 1.4, Sodium Level 137, Potassium Level 3.5, Chloride Level 100, Carbon Dioxide Level 29, Anion Gap 8, Blood Urea Nitrogen 24H, Creatinine 2.7H, Estimat Glomerular Filtration Rate , Glucose Level 85, Calcium Level 7.9L, Magnesium Level 1.9, Total Bilirubin 0.6, Aspartate Amino Transf ( AST/SGOT) 21, Alanine Aminotransferase (ALT/SGPT) 9L, Alkaline Phosphatase 111, Pro-B-Type Natriuretic Peptide 87734B, Total Protein 5.3L, Albumin 1.5L, Globulin 3.8, Albumin/Globulin Ratio 0.4L, Random Vancomycin Level 16.7 09/14/18 08:24: Arterial Blood pH 7.413, Arterial Blood Partial Pressure CO2 42.4, Arterial Blood Partial Pressure O2 97.0, Arterial Blood HCO3 26.5H, Arterial Blood Oxygen Saturation 97.0, Arterial Blood Base Excess 1.7, Red Test Positive Current Medications Medications (Trade) Dose Ordered Sig/[place] Route PRN Reason Start Time Stop Time Status Last Admin Dose Admin Acetaminophen (Tylenol) 650 mg Q6H PRN ORAL Mild Pain/Temp > 100.5 09/12/18 11:30 10/12/18 11:29 Acetaminophen/ Hydrocodone Bitart ([place] 5/325) 1 tab Q4H PRN ORAL Moderate Pain (Pain Scale 4-6) 09/13/18 14:15 09/20/18 14:14 09/14/18 09:24 Cefepime HCl 0.5 gm/Dextrose 50 ml @ 100 mls/hr Q24HRS IVPB 09/13/18 04:00 09/20/18 03:59 09/14/18 03:27 Chlorhexidine Gluconate (Mira-Hex 2%) 1 applic DAILY@2000 TOPIC 09/13/18 20:00 10/13/18 19:59 09/13/18 20:55 Epoetin Rudolph (Epoetin Rudolph(ESRD on dialysis)) 2,000 unit SUBQ 09/14/18 21:00 10/14/18 20:59 Epoetin Rudolph (Epoetin Rudolph(ESRD on dialysis)) 3,000 unit SUBQ 09/14/18 21:00 10/14/18 20:59 Gabapentin (Neurontin) 100 mg DAILY ORAL 09/14/18 09:00 10/14/18 08:59 09/14/18 09:25 Guaifenesin (Robitussin) 100 mg Q4H PRN ORAL For Cough 09/12/18 13:00 10/12/18 12:59 Heparin Sodium (Porcine) (Heparin Sod 1000 units/ml 10ml) 500 unit ONCE PRN IV FOR HD USE ONLY 09/14/18 06:00 09/14/18 23:59 Levothyroxine Sodium (Synthroid) 150 mcg Q24H ORAL 09/13/18 06:30 10/13/18 06:29 09/14/18 06:26 Losartan Potassium (Cozaar) 25 mg DAILY ORAL 09/13/18 09:00 10/13/18 08:59 Methocarbamol (Robaxin) 500 mg QIDPRN PRN ORAL MUSCLE PAIN 09/12/18 12:30 10/12/18 12:29 09/14/18 13:21 Metronidazole 100 ml @ 100 mls/hr Q8HR IVPB 09/12/18 22:00 09/19/18 21:59 09/14/18 06:26 Pantoprazole (Protonix) 40 mg DAILY ORAL 09/13/18 09:00 10/13/18 08:59 09/14/18 09:25 Pravastatin Sodium (Pravachol) 40 mg BEDTIME ORAL 09/12/18 21:00 10/12/18 20:59 09/13/18 20:55 Sodium Chloride 1,000 ml @ 500 mls/hr Q2H PRN IVLG sbp<90 during hd 09/14/18 06:00 09/14/18 23:59 Vancomycin HCl (Vanco rx to dose) 1 ea DAILY PRN MISC Per rx protocol 09/12/18 18:45 10/12/18 18:44 Vancomycin HCl 1 gm/Dextrose 275 ml @ 183.708 mls/hr ONCE IVPB 09/14/18 12:00 09/14/18 14:00 09/14/18 11:49 Vitamin B Complex/ Vit C/Folic Acid (Nephrovite) 1 tab DAILY ORAL 09/13/18 09:00 10/13/18 08:59 09/14/18 09:25 Zinc Sulfate (Zinc Sulfate) 220 mg DAILY ORAL 09/13/18 09:00 10/13/18 08:59 09/14/18 09:25 Zolpidem Tartrate (Ambien) 5 mg BEDTIME PRN ORAL Insomnia 09/12/18 12:30 09/19/18 12:29 09/13/18 22:04 Edward Darden MD Sep 14, 2018 13:25
--- NOTE | 2018-09-14 15:07 | Infectious Diseases Prog Note ---
Assessment/Plan Assessment/Plan ASSESSMENT AND PLAN: 1. possible sepsis, leukocytosis, ? TB pna, ? HCAP, hx endocarditis and cervical osteomyelitis - continue vancomycin, cefepime and flagyl - check cultures, labs and chest x-ray - see below for recs for hx endocarditis and cervical osteomyelitis - leukocytosis improved 2. Rule out TB pneumonia - await afb's and TB gold, isolation for now. 3. History of cervical osteomyelitis - continue abx, patient to f/u with primary treatment team once discharged 4. History of endocarditis - hx enterococcus bacteremia and endocarditis per [facility] records. Patient was being treated with ? zosyn until 10/01/18. Patient to follow with primary treatment team once discharged. (Note enterococcus was sensitive to ampicillin/pcn and vancomycin.) records from [facility]. Check echo and again sedimentation rate and check surveillance blood cultures. 5. The patient is on vancomycin and cefepime to have coverage for cervical osteomyelitis and endocarditis, but we will have to see what the pathogens were in the records. 6. Anemia. 7. End-stage renal disease, on hemodialysis. 8. History of fracture of the right femur. 9. History of hypertension. Blood pressure treatment per Dr. Adams. 10. Weakness. 11. Gastroesophageal reflux disease. 12. Hyperlipidemia. 13. Hypothyroidism. 14. History of cataracts and benign neoplasm of the parathyroid. 15. Allergic to penicillin tolerates cephalosporins. 16. Social history is negative. 17. Family history is noncontributory. 18. MAR was noted. 19. Case was discussed with RN. 20. Continue treatment per primary consultants. Subjective Constitutional: Reports: fatigue, other - getting HD; Denies: fever HEENT: Denies: congestion Respiratory: Denies: shortness of breath Cardiovascular: Denies: chest pain Gastrointestinal/Abdominal: Denies: nausea, vomiting, diarrhea Genitourinary: Reports: other - + hd Neurologic: Denies: headache Psychiatric: Reports: depression Skin: Denies: rash Hematologic: Denies: bleeding Musculoskeletal: Denies: pain Allergies: Coded Allergies: PENICILLINS (Unverified Allergy, Unknown, 09/12/18) Objective Vital Signs Last 24 Hour Vital Signs Date Time Temp Pulse Resp B/P (MAP) Pulse Ox O2 Delivery O2 Flow Rate FiO2 09/14/18 12:00 71 09/14/18 12:00 Nasal Cannula 2.0 09/14/18 12:00 98.1 72 20 132/58 (82) 100 09/14/18 08:25 76 18 100 09/14/18 08:25 100 Nasal Cannula 2.0 28 09/14/18 08:00 97.7 74 19 133/71 (91) 100 09/14/18 08:00 68 09/14/18 08:00 Nasal Cannula 2.0 09/14/18 06:13 77 18 99 Facial 30 09/14/18 04:00 Nasal Cannula 2.0 09/14/18 04:00 97.2 77 16 140/67 (91) 100 09/14/18 03:35 78 09/14/18 00:00 Nasal Cannula 2.0 09/14/18 00:00 97.0 69 16 122/59 (80) 100 09/13/18 23:52 69 09/13/18 20:00 96.4 83 22 130/54 (79) 96 09/13/18 20:00 Nasal Cannula 2.0 09/13/18 19:48 96 Nasal Cannula 4.0 36 09/13/18 19:12 80 09/13/18 16:00 97.9 81 20 137/84 (101) 95 09/13/18 16:00 84 09/13/18 16:00 Nasal Cannula 4.0 Height (Feet): 5 Height (Inches): 4.00 Weight (Pounds): 131 General Appearance: no acute distress HEENT: normocephalic, atraumatic, anicteric, mucous membranes moist Respiratory/Chest: crackles/rales, rhonchi - bilaterally Cardiovascular: normal rate, regular rhythm, no gallop/murmur, no JVD Abdomen: normal bowel sounds, soft, non tender, no organomegaly, non distended Genitourinary: other - + connors Extremities: no cyanosis Skin: no rash Neurologic/Psychiatric: hall clerk II-XII grossly normal, alert Lymphatic: no neck adenopathy Musculoskeletal: no effusion Objective CT chest - Impression: Suboptimal opacification of the pulmonary arteries; no gross large vessel pulmonary emboli demonstrated Negative for thoracic aortic aneurysm or dissection Four-chamber cardiomegaly Interstitial septal thickening, likely secondary to pulmonary edema. Groundglass and denser airspace opacities diffusely bilaterally, likely on the basis of pulmonary edema but other etiologies possible Large left and small right pleural effusions. That on the left is possibly loculated, particularly in the upper hemithorax Ascites Anasarca, with, in addition to the above findings, diffuse edema of the subcutaneous, mediastinal, and abdominal fat Compressive atelectasis of much of the left lower lobe and portions of the right lower lobe due to the pleural fluid Evidence of COPD changes Mediastinal lymphadenopathy, may reactive or neoplastic 2 cm enhancing left renal mass, worrisome for renal neoplasm. Consider dedicated renal CT for better characterization Partial eggshell calcification within the renal sinus, could represent a partially calcified renal artery aneurysm versus a postinflammatory lesion Hepatic surface nodularity, likely cirrhosis Scattered areas of arterial hyperenhancement in the liver, likely related to cirrhotic change or transient areas of arterial enhancement T12 compression fracture with posterior retropulsion. 09/13/18 - chest x-ray - Procedure: XRAY Chest 1v Indication: Shortness of breath Technique: One view of the chest Comparison: 09/12/2018 Findings: Evidence of slightly better aeration in the right perihilar region, with decreased consolidation and atelectasis. Generalized bilateral diffuse interstitial and airspace disease may be slightly improved since prior study overall, although still persistent and extensive. Bilateral left greater than right pleural effusions persist, may be slightly improved on the left. Left jugular tunneled dialysis catheter remains. Left jugular central venous catheter remains with its tip projected retrograde into the azygos vein. The heart is upper limits normal in size. The edge of a left shoulder prosthesis is noted Impression: Suggestion of slightly improved but still persists and extensive bilateral parenchymal disease. Possible slight improvement of still large left pleural effusion Microbiology Date/Time Source Procedure Growth Status 09/12/18 02:05 Blood Blood Culture - Preliminary NO GROWTH AFTER 48 HOURS Resulted 09/12/18 01:55 Blood Blood Culture - Preliminary NO GROWTH AFTER 48 HOURS Resulted 09/13/18 07:25 Sputum Induced Gram Stain - Final Resulted 09/13/18 07:25 Sputum Induced Sputum Culture Pending Resulted 09/13/18 07:25 Sputum AFB Specimen Processing Tissue - Final Resulted 09/13/18 07:25 Sputum Acid Fast Bacilli Smear - Final Resulted 09/13/18 07:25 Sputum Acid Fast Bacilli Culture Pending Resulted 09/12/18 04:00 Nasal Nares MRSA Culture - Final NO METHICILLIN RESISTANT STAPH AUREUS... Complete 09/12/18 04:00 Rectum VRE Culture - Final NO VANCOMYCIN RESISTANT ENTEROCOCCUS ... Complete 09/12/18 04:00 Rectum Received Laboratory Tests Test 09/14/18 08:10 09/14/18 08:24 White Blood Count 8.2 K/UL (4.8-10.8) Red Blood Count 2.44 M/UL (4.20-5.40) L Hemoglobin 8.4 G/DL (12.0-16.0) L Hematocrit 25.8 % (37.0-47.0) L Mean Corpuscular Volume 106 FL (80-99) H Mean Corpuscular Hemoglobin 34.3 PG (27.0-31.0) H Mean Corpuscular Hemoglobin Concent 32.4 G/DL (32.0-36.0) Red Cell Distribution Width 18.6 % (11.6-14.8) H Platelet Count 214 K/UL (150-450) Mean Platelet Volume 6.4 FL (6.5-10.1) L Neutrophils (%) (Auto) 80.3 % (45.0-75.0) H Lymphocytes (%) (Auto) 11.3 % (20.0-45.0) L Monocytes (%) (Auto) 5.3 % (1.0-10.0) Eosinophils (%) (Auto) 1.7 % (0.0-3.0) Basophils (%) (Auto) 1.4 % (0.0-2.0) Sodium Level 137 MMOL/L (136-145) Potassium Level 3.5 MMOL/L (3.5-5.1) Chloride Level 100 MMOL/L (98-107) Carbon Dioxide Level 29 MMOL/L (21-32) Anion Gap 8 mmol/L (5-15) Blood Urea Nitrogen 24 mg/dL (7-18) H Creatinine 2.7 MG/DL (0.55-1.30) H Estimat Glomerular Filtration Rate mL/min (>60) Glucose Level 85 MG/DL (74-106) Calcium Level 7.9 MG/DL (8.5-10.1) L Magnesium Level 1.9 MG/DL (1.8-2.4) Total Bilirubin 0.6 MG/DL (0.2-1.0) Aspartate Amino Transf (AST/SGOT) 21 U/L (15-37) Alanine Aminotransferase (ALT/SGPT) 9 U/L (12-78) L Alkaline Phosphatase 111 U/L (46-116) Pro-B-Type Natriuretic Peptide 99895 pg/mL (0-125) H Total Protein 5.3 G/DL (6.4-8.2) L Albumin 1.5 G/DL (3.4-5.0) L Globulin 3.8 g/dL Albumin/Globulin Ratio 0.4 (1.0-2.7) L Random Vancomycin Level 16.7 ug/mL Arterial Blood pH 7.413 (7.350-7.450) Arterial Blood Partial Pressure CO2 42.4 mmHg (35.0-45.0) Arterial Blood Partial Pressure O2 97.0 mmHg (75.0-100.0) Arterial Blood HCO3 26.5 mmol/L (22.0-26.0) H Arterial Blood Oxygen Saturation 97.0 % (95-100) Arterial Blood Base Excess 1.7 (-2-2) Red Test Positive Current Medications Medications (Trade) Dose Ordered Sig/[place] Route PRN Reason Start Time Stop Time Status Last Admin Dose Admin Acetaminophen (Tylenol) 650 mg Q6H PRN ORAL Mild Pain/Temp > 100.5 09/12/18 11:30 10/12/18 11:29 Acetaminophen/ Hydrocodone Bitart ([place] 5/325) 1 tab Q4H PRN ORAL Moderate Pain (Pain Scale 4-6) 09/13/18 14:15 09/20/18 14:14 09/14/18 09:24 Cefepime HCl 0.5 gm/Dextrose 50 ml @ 100 mls/hr Q24HRS IVPB 09/13/18 04:00 09/20/18 03:59 09/14/18 03:27 Chlorhexidine Gluconate (Mira-Hex 2%) 1 applic DAILY@2000 TOPIC 09/13/18 20:00 10/13/18 19:59 09/13/18 20:55 Epoetin Rudolph (Epoetin Rudolph(ESRD on dialysis)) 2,000 unit -MON SUBQ 09/14/18 21:00 10/14/18 20:59 Epoetin Rudolph (Epoetin Rudolph(ESRD on dialysis)) 3,000 unit -MON SUBQ 09/14/18 21:00 10/14/18 20:59 Gabapentin (Neurontin) 100 mg DAILY ORAL 09/14/18 09:00 10/14/18 08:59 09/14/18 09:25 Guaifenesin (Robitussin) 100 mg Q4H PRN ORAL For Cough 09/12/18 13:00 10/12/18 12:59 Heparin Sodium (Porcine) (Heparin Sod 1000 units/ml 10ml) 500 unit ONCE PRN IV FOR HD USE ONLY 09/14/18 06:00 09/14/18 23:59 Levothyroxine Sodium (Synthroid) 150 mcg Q24H ORAL 09/13/18 06:30 10/13/18 06:29 09/14/18 06:26 Losartan Potassium (Cozaar) 25 mg DAILY ORAL 09/13/18 09:00 10/13/18 08:59 Methocarbamol (Robaxin) 500 mg QIDPRN PRN ORAL MUSCLE PAIN 09/12/18 12:30 10/12/18 12:29 09/14/18 13:21 Metronidazole 100 ml @ 100 mls/hr Q8HR IVPB 09/12/18 22:00 09/19/18 21:59 09/14/18 13:48 Pantoprazole (Protonix) 40 mg DAILY ORAL 09/13/18 09:00 10/13/18 08:59 09/14/18 09:25 Pravastatin Sodium (Pravachol) 40 mg BEDTIME ORAL 09/12/18 21:00 10/12/18 20:59 09/13/18 20:55 Sodium Chloride 1,000 ml @ 500 mls/hr Q2H PRN IVLG sbp<90 during hd 09/14/18 06:00 09/14/18 23:59 Vancomycin HCl (Vanco rx to dose) 1 ea DAILY PRN MISC Per rx protocol 09/12/18 18:45 10/12/18 18:44 Vitamin B Complex/ Vit C/Folic Acid (Nephrovite) 1 tab DAILY ORAL 09/13/18 09:00 10/13/18 08:59 09/14/18 09:25 Zinc Sulfate (Zinc Sulfate) 220 mg DAILY ORAL 09/13/18 09:00 10/13/18 08:59 09/14/18 09:25 Zolpidem Tartrate (Ambien) 5 mg BEDTIME PRN ORAL Insomnia 09/12/18 12:30 09/19/18 12:29 09/13/18 22:04 Leonor Thakkar MD Sep 14, 2018 15:07
[2018-09-14 16:00] VITALS: BP 147/71
--- NOTE | 2018-09-14 16:05 | NUR ---
NURSE NOTES: Dr. Darden seen and examined patient at bedside. Dr. Darden examined patient's chest x-ray. Dr. Darden ordered Left side thoracentesis, CBC and INR lab in AM. Orders entered, noted, and carried out. Will continue to monitor patient.
--- NOTE | 2018-09-14 16:15 | NUR ---
NURSE NOTES: Patient informed of left side thoracentesis per Dr. Darden. Patient acknowledged. Patient is alert and oriented x 4. Patient signed consent for procedure. Consent placed in patient's chart. Charge nurse made aware. Will continue to monitor patient.
--- NOTE | 2018-09-14 19:20 | NUR ---
NURSE NOTES: Received patient from SUNG Reyes. patient is resting in bed, arousable and able to follow verbal commands. denies pain at this time. patient is on 3 L oxygen via NC. no s/sx of respiratory distress at this time. Central catheter is patent and intact. bed in lowest position and locked, siderails up X 2, call light within reach. will continue to monitor.
--- NOTE | 2018-09-14 19:20 | NUR ---
HAND-OFF: Report given to SUNG Kumar.
[2018-09-14 20:00] VITALS: BP 135/66
[2018-09-14] MEDS: Dyna-Hex 2% Top Sol 2oz TOPIC SCH (20:45)
[2018-09-14] MEDS: Epoetin Alfa-EPBX(ESRD on dialysis)3000 units/ml vial SUBQ SCH (20:46)
[2018-09-14] MEDS: Epoetin Alfa-EPBX(ESRD on dialysis)2000 units/ml vial SUBQ SCH (20:47)
[2018-09-15] VITALS: BP 127/59
[2018-09-15] MEDS: Methocarbamol 500mg tab ORAL PRN (00:07)
--- NOTE | 2018-09-15 01:15 | Progress Note ---
DATE: 09/14/2018 CARDIOLOGY PROGRESS NOTE SUBJECTIVE: The patient has been ultrafiltrated on successive days during hemodialysis. Echocardiogram has been reviewed. Cardiac ejection fraction remains normal. There is no obvious vegetation, however, she has severe mitral and tricuspid regurgitation with PA systolic pressure estimate over 100 suggesting severe pulmonary hypertension. OBJECTIVE: VITAL SIGNS: Blood pressure 132/58, pulse 72, and respirations 20. LUNGS: Diminished breath sounds. Few rhonchi. HEART: Regular rhythm and rate. Normal S1, S2 with a 1/6 holosystolic apical murmur. ABDOMEN: Soft and nontender. EXTREMITIES: With trace edema. LABORATORY DATA: Blood cultures remain negative. White count 8.2 and hemoglobin 8.4. Sodium 137, potassium 3.5, bicarbonate 29, BUN 24, and creatinine 2.7. Pro-natriuretic peptide 11,000. ABG, pH 7.4, pCO2 142, and pO2 97. IMPRESSION: 1. Possible sepsis. 2. Healthcare-acquired pneumonia. 3. History of endocarditis due to Enterococcus. 4. Severe pulmonary hypertension. 5. Severe mitral and tricuspid regurgitation. 6. History of cervical osteomyelitis. PLAN: 1. Await final surveillance blood culture results. 2. Maximize anti-failure therapy and afterload reduction. 3. Respiratory hygiene. 4. Antimicrobials per Infectious Disease call center consultant. Edward Mendez M.D. DR: SILVANA JOB#: [id number] CC:
[2018-09-15 04:00] VITALS: BP 143/70
[2018-09-15] MEDS: Cefepime 1gm in D5W 55ml IVPB SCH (04:53)
--- NOTE | 2018-09-15 07:25 | NUR ---
NURSE NOTES: Report received from SUNG Kumar. Patient AOx4 in 2LNC, Saturating 94. Denies any pain or SOB. IV running TKO. Bed in lowest position, side rails upx2, brakes engaged. Call light within easy reach.
[2018-09-15 08:00] VITALS: BP 154/77
[2018-09-15 08:05] LABS: BASOPHILS % (AUTO) 1.1 % (0.0-2.0); EOSINOPHILS % (AUTO) 1.2 % (0.0-3.0); HEMATOCRIT 26.2 % (37.0-47.0); HEMOGLOBIN 8.6 G/DL (12.0-16.0); LYMPHOCYTES % (AUTO) 11.2 % (20.0-45.0); MEAN CORPUSCULAR VOLUME 107 FL (80-99); MONOCYTES % (AUTO) 4.5 % (1.0-10.0); PLATELET COUNT 224 K/UL (150-450); RED BLOOD COUNT 2.46 M/UL (4.20-5.40); RED CELL DISTRIBUTION WIDTH 19.3 % (11.6-14.8); WHITE BLOOD COUNT 9.1 K/UL (4.8-10.8)
--- NOTE | 2018-09-15 08:28 | NUR ---
HAND-OFF: Report given to SUNG Marin. patient is in stable condition.
[2018-09-15 08:36] LABS: ALANINE AMINOTRANSFERASE 11 U/L (12-78); ALBUMIN 1.6 G/DL (3.4-5.0); ALBUMIN/GLOBULIN RATIO 0.4 (1.0-2.7); ALKALINE PHOSPHATASE 118 U/L (46-116); ANION GAP 7 mmol/L (5-15); ASPARTATE AMINO TRANSFERASE 21 U/L (15-37); BILIRUBIN,TOTAL 0.6 MG/DL (0.2-1.0); BLOOD UREA NITROGEN 25 mg/dL (7-18); CALCIUM 8.1 MG/DL (8.5-10.1); CARBON DIOXIDE 29 MMOL/L (21-32); CHLORIDE 100 MMOL/L (98-107); CREATININE 2.8 MG/DL (0.55-1.30); POTASSIUM 4.4 MMOL/L (3.5-5.1); SODIUM 136 MMOL/L (136-145)
[2018-09-15] MEDS: Nephrovite tab (Rena-Vite) ORAL SCH (08:51)
[2018-09-15] MEDS: Zinc Sulfate 220mg cap ORAL SCH (08:51)
[2018-09-15] MEDS: Losartan 50mg tab ORAL SCH (08:52)
--- NOTE | 2018-09-15 09:33 | Diagnostic Imaging Report ---
APPROVED REPORT CPT Code: 04709 Present Symptoms Shortness of breath RIGHT LEG: Venous imaging reveals recanalized chronic thrombus in the common femoral vein. Remainder of the deep venous system within normal limits. No evidence of thrombus within the superficial femoral, popliteal or tibial segments. Greater saphenous vein also within normal limits. Doppler indicates normal spontaneous flow within these segments. LEFT LEG: Venous imaging reveals recanalized chronic thrombus in the common femoral vein and popliteal vein. Remainder of the deep venous system within normal limits. No evidence of thrombus within the superficial femoral, or tibial segments. Greater saphenous vein also within normal limits. Doppler indicates normal spontaneous flow within these segments. SUNG Reyes was notified of abnormal results at 1200 hours.
--- NOTE | 2018-09-15 09:57 | Nephrology Progress Note ---
Assessment/Plan Problem List: (1) CHF (congestive heart failure), NYHA class II (2) Hemoptysis, unspecified (3) Osteomyelitis of cervical spine (4) ESRD (end stage renal disease) on dialysis (5) Bilateral pleural effusion (6) Malnutrition Plan dialysis 09/12 12 14 for fluid overload, stop amlodipine to mitigate hypotension , pulm care, seems improved after fluid removal, continuing rx for osteo and possible pneumonia Subjective Constitutional: Reports: weakness HEENT: Reports: no symptoms Genitourinary: Reports: incontinence Neurologic/Psychiatric: Reports: pre-existing deficit Objective Objective Last 24 Hour Vital Signs Date Time Temp Pulse Resp B/P (MAP) Pulse Ox O2 Delivery O2 Flow Rate FiO2 09/15/18 08:52 154/77 09/15/18 08:00 77 09/15/18 08:00 97.3 75 20 154/77 (102) 96 09/15/18 07:38 98 Nasal Cannula 3.0 32 09/15/18 04:00 Nasal Cannula 3.0 09/15/18 04:00 75 09/15/18 04:00 96.4 74 20 143/70 (94) 98 09/15/18 00:00 Nasal Cannula 3.0 09/15/18 00:00 97.0 71 20 127/59 (81) 96 09/15/18 00:00 80 09/14/18 20:00 97.9 79 20 135/66 (89) 98 09/14/18 20:00 Nasal Cannula 3.0 09/14/18 20:00 76 09/14/18 19:38 100 Nasal Cannula 3.0 32 09/14/18 16:00 69 09/14/18 16:00 98.1 79 20 147/71 (96) 100 09/14/18 16:00 Nasal Cannula 2.0 09/14/18 12:00 71 09/14/18 12:00 Nasal Cannula 2.0 09/14/18 12:00 98.1 72 20 132/58 (82) 100 Intake and Output 09/14/18 09/15/18 19:00 07:00 Intake Total 500 ml 155 ml Output Total 2000 ml Balance -1500 ml 155 ml Intake Oral 500 ml IV Total 155 ml Output Hemodialysis UF 2000 ml Laboratory Tests 09/15/18 06:00: White Blood Count 9.1, Red Blood Count 2.46L, Hemoglobin 8.6L, Hematocrit 26.2L , Mean Corpuscular Volume 107H, Mean Corpuscular Hemoglobin 35.2H, Mean Corpuscular Hemoglobin Concent 33.0, Red Cell Distribution Width 19.3H, Platelet Count 224, Mean Platelet Volume 6.6, Neutrophils (%) (Auto) 82.0H, Lymphocytes (%) (Auto) 11.2L, Monocytes (%) (Auto) 4.5, Eosinophils (%) (Auto) 1.2, Basophils (%) (Auto) 1.1, Prothrombin Time 11.1, Prothromb Time International Ratio 1.0, Sodium Level 136, Potassium Level 4.4, Chloride Level 100, Carbon Dioxide Level 29, Anion Gap 7, Blood Urea Nitrogen 25H, Creatinine 2.8H, Estimat Glomerular Filtration Rate , Glucose Level 80, Calcium Level 8.1L , Total Bilirubin 0.6, Aspartate Amino Transf (AST/SGOT) 21, Alanine Aminotransferase (ALT/SGPT) 11L, Alkaline Phosphatase 118H, Total Protein 5.3L, Albumin 1.6L, Globulin 3.7, Albumin/Globulin Ratio 0.4L, Random Vancomycin Level 22.0 Height (Feet): 5 Height (Inches): 4.00 Weight (Pounds): 119 General Appearance: alert, thin EENT: normal ENT inspection Neck: normal alignment Cardiovascular: regular rhythm Respiratory/Chest: lungs clear, decreased breath sounds Abdomen: non tender, soft Extremities: other - no edema 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
[2018-09-15 12:00] VITALS: BP 125/79
[2018-09-15 16:00] VITALS: BP 143/65
--- NOTE | 2018-09-15 16:10 | NUR ---
NURSE NOTES: Verified with GENIE Willoughby to follow wound care nurse's recommendation to care for wound.
--- NOTE | 2018-09-15 19:30 | NUR ---
HAND-OFF: Report given to SUNG Duran. Patient in stable condition. Family at bedside.
--- NOTE | 2018-09-15 19:38 | NUR ---
NURSE NOTES: Received report from SUNG Guerrero. Patient is awake lying semi-smalls's watching TV; resting comfortably. No signs of acute distress noted; complains of some pain. Family member at bedside. On 3L nasal cannula. AOx4; able to make needs known. Checked pigtail on left chest; patent and flushed. No erythema, bleeding, or infiltration noted. Patient is on low air loss mattress for appropriate wound management. BiPAP at bedside. Bed at lowest position, brakes on, siderails up x3. Call light within reach. Will continue to monitor.
[2018-09-15 20:00] VITALS: BP 148/66
[2018-09-15] MEDS: Dyna-Hex 2% Top Sol 2oz TOPIC SCH (21:30)
[2018-09-15] MEDS: HYDROcodone/Acetamin 5/325 tab ORAL PRN (21:31)
--- NOTE | 2018-09-15 21:59 | Pulmonology Progress Note ---
Assessment/Plan Assessment/Plan 1. Hemoptysis, possibly due to pneumonia, tuberculosis is to be considered. Metastatic neoplasm seems unlikely. Recent chest x-ray at [facility] showed atelectasis at right base and pleural effusions and infiltrate on the left side. 2. End-stage renal disease. On dialysis. 3. Cervical osteomyelitis. 4. Recent stroke. 5. Renal mass. 6. Penicillin allergy. 7. 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 8. Peripheral artery disease. 9. Renal mass. 10. Clostridium difficile colitis. PLAN: Fu cultures abx nebs adn suction HD per renal CXR monday o2 for now not using bipap at all can dc from [facility] room Subjective Constitutional: Reports: no symptoms HEENT: Repors: no symptoms Respiratory: Reports: dry cough, shortness of breath Cardiovascular: Reports: no symptoms Genitourinary: Reports: no symptoms Allergies: Coded Allergies: PENICILLINS (Unverified Allergy, Unknown, 09/12/18) Subjective awake no distress coughing with minimal phlegm not getting oob no nv or bleeding HD last 3 days and toelrated Objective Last 24 Hour Vital Signs Date Time Temp Pulse Resp B/P (MAP) Pulse Ox O2 Delivery O2 Flow Rate FiO2 09/15/18 16:00 97.7 77 20 143/65 (91) 97 09/15/18 16:00 77 09/15/18 16:00 Nasal Cannula 3.0 09/15/18 12:00 74 09/15/18 12:00 97.2 73 18 125/79 (94) 98 09/15/18 12:00 Nasal Cannula 3.0 09/15/18 08:52 154/77 09/15/18 08:00 77 09/15/18 08:00 Nasal Cannula 3.0 09/15/18 08:00 97.3 75 20 154/77 (102) 96 09/15/18 07:38 98 Nasal Cannula 3.0 32 09/15/18 04:00 Nasal Cannula 3.0 09/15/18 04:00 75 09/15/18 04:00 96.4 74 20 143/70 (94) 98 09/15/18 00:00 Nasal Cannula 3.0 09/15/18 00:00 97.0 71 20 127/59 (81) 96 09/15/18 00:00 80 Intake and Output 09/14/18 09/15/18 19:00 07:00 Intake Total 500 ml 155 ml Output Total 2000 ml Balance -1500 ml 155 ml Intake Oral 500 ml IV Total 155 ml Output Hemodialysis UF 2000 ml General Appearance: cachetic HEENT: atraumatic, anicteric, mucous membranes moist Respiratory/Chest: rhonchi Cardiovascular: normal rate, regular rhythm, murmur systolic Abdomen: soft, non tender, no organomegaly Skin: lesions Neurologic/Psychiatric: alert Lymphatic: no neck adenopathy Microbiology Date/Time Source Procedure Growth Status 09/14/18 09:00 Sputum AFB Specimen Processing Tissue - Final Resulted 09/14/18 09:00 Sputum Acid Fast Bacilli Smear - Final Resulted 09/14/18 09:00 Sputum Acid Fast Bacilli Culture Pending Resulted 09/13/18 07:25 Sputum Induced Gram Stain - Final Resulted 09/13/18 07:25 Sputum Culture - Preliminary Yeast Species Resulted 09/13/18 07:25 Sputum AFB Specimen Processing Tissue - Final Resulted 09/13/18 07:25 Sputum Acid Fast Bacilli Smear - Final Resulted 09/13/18 07:25 Sputum Acid Fast Bacilli Culture Pending Resulted Laboratory Tests 09/15/18 06:00: White Blood Count 9.1, Red Blood Count 2.46L, Hemoglobin 8.6L, Hematocrit 26.2L , Mean Corpuscular Volume 107H, Mean Corpuscular Hemoglobin 35.2H, Mean Corpuscular Hemoglobin Concent 33.0, Red Cell Distribution Width 19.3H, Platelet Count 224, Mean Platelet Volume 6.6, Neutrophils (%) (Auto) 82.0H, Lymphocytes (%) (Auto) 11.2L, Monocytes (%) (Auto) 4.5, Eosinophils (%) (Auto) 1.2, Basophils (%) (Auto) 1.1, Prothrombin Time 11.1, Prothromb Time International Ratio 1.0, Sodium Level 136, Potassium Level 4.4, Chloride Level 100, Carbon Dioxide Level 29, Anion Gap 7, Blood Urea Nitrogen 25H, Creatinine 2.8H, Estimat Glomerular Filtration Rate , Glucose Level 80, Calcium Level 8.1L , Total Bilirubin 0.6, Aspartate Amino Transf (AST/SGOT) 21, Alanine Aminotransferase (ALT/SGPT) 11L, Alkaline Phosphatase 118H, Total Protein 5.3L, Albumin 1.6L, Globulin 3.7, Albumin/Globulin Ratio 0.4L, Random Vancomycin Level 22.0 Current Medications Medications (Trade) Dose Ordered Sig/[place] Route PRN Reason Start Time Stop Time Status Last Admin Dose Admin Acetaminophen (Tylenol) 650 mg Q6H PRN ORAL Mild Pain/Temp > 100.5 09/12/18 11:30 10/12/18 11:29 Acetaminophen/ Hydrocodone Bitart ([place] 5/325) 1 tab Q4H PRN ORAL Moderate Pain (Pain Scale 4-6) 09/13/18 14:15 09/20/18 14:14 09/15/18 21:31 Cefepime HCl 1 gm/ Dextrose 55 ml @ 110 mls/hr Q24H IVPB 09/15/18 04:00 09/22/18 03:59 09/15/18 04:53 Chlorhexidine Gluconate (Mira-Hex 2%) 1 applic DAILY@2000 TOPIC 09/13/18 20:00 10/13/18 19:59 09/15/18 21:30 Epoetin Rudolph (Epoetin Rudolph(ESRD on dialysis)) 2,000 unit MON-MON-MON SUBQ 09/14/18 21:00 10/14/18 20:59 09/14/18 20:47 Epoetin Rudolph (Epoetin Rudolph(ESRD on dialysis)) 3,000 unit SUBQ 09/14/18 21:00 10/14/18 20:59 09/14/18 20:46 Gabapentin (Neurontin) 100 mg DAILY ORAL 09/14/18 09:00 10/14/18 08:59 09/15/18 08:52 Guaifenesin (Robitussin) 100 mg Q4H PRN ORAL For Cough 09/12/18 13:00 10/12/18 12:59 Levothyroxine Sodium (Synthroid) 150 mcg Q24H ORAL 09/13/18 06:30 10/13/18 06:29 09/15/18 06:15 Losartan Potassium (Cozaar) 100 mg DAILY ORAL 09/15/18 09:00 10/15/18 08:59 09/15/18 08:52 Methocarbamol (Robaxin) 500 mg QIDPRN PRN ORAL MUSCLE PAIN 09/12/18 12:30 10/12/18 12:29 09/15/18 00:07 Metronidazole 100 ml @ 100 mls/hr Q8HR IVPB 09/12/18 22:00 09/19/18 21:59 09/15/18 21:30 Pantoprazole (Protonix) 40 mg DAILY ORAL 09/13/18 09:00 10/13/18 08:59 09/15/18 08:51 Pravastatin Sodium (Pravachol) 40 mg BEDTIME ORAL 09/12/18 21:00 10/12/18 20:59 09/15/18 21:30 Vancomycin HCl (Vanco rx to dose) 1 ea DAILY PRN MISC Per rx protocol 09/12/18 18:45 10/12/18 18:44 Vitamin B Complex/ Vit C/Folic Acid (Nephrovite) 1 tab DAILY ORAL 09/13/18 09:00 10/13/18 08:59 09/15/18 08:51 Zinc Sulfate (Zinc Sulfate) 220 mg DAILY ORAL 09/13/18 09:00 10/13/18 08:59 09/15/18 08:51 Zolpidem Tartrate (Ambien) 5 mg BEDTIME PRN ORAL Insomnia 09/12/18 12:30 09/19/18 12:29 09/13/18 22:04 Clementine Mckeon DO Sep 15, 2018 21:59
[2018-09-16] VITALS (7 sets, daily range): BP systolic 142–157; BP diastolic 62–83
[2018-09-16] MEDS: Methocarbamol 500mg tab ORAL PRN (00:43)
--- NOTE | 2018-09-16 02:00 | Progress Note ---
DATE: 09/15/2018 CARDIOLOGY PROGRESS NOTE SUBJECTIVE: The patient has no respiratory distress and has not been requiring BiPAP. She has improved following 3 days of hemodialysis with ultrafiltration. She continues to have some congestion requiring suctioning and nebulizer treatments. Monitored rhythm remains sinus with rare ectopy. OBJECTIVE: LUNGS: Bilateral breath sounds. Few rhonchi. No wheezing. HEART: Regular rhythm and rate. Normal S1, S2 with a 2/6 systolic murmur at the base. ABDOMEN: Soft. EXTREMITIES: Without edema. LABORATORY DATA: White count 9 and hemoglobin 8.6. BUN 25, creatinine 2.8, and potassium 4.4. Albumin 1.6. Pro-natriuretic peptide yesterday was 11,000. IMPRESSION: 1. Healthcare-acquired pneumonia. 2. Sepsis. 3. 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 4. Severe pulmonary hypertension. 5. Severe mitral and tricuspid regurgitation. 6. History of cervical osteomyelitis. 7. Acute on chronic diastolic congestive heart failure. 8. End-stage renal disease. PLAN: 1. Hemodialysis with ultrafiltration per Renal. 2. Maximize anti-failure therapy. 3. Antimicrobials per primary care physician. 4. Await surveillance blood cultures. Edward Mendez M.D. DR: SILVANA JOB#: [id number] CC:
[2018-09-16] MEDS: Cefepime 1gm in D5W 55ml IVPB SCH (04:29)
[2018-09-16] MEDS: HYDROcodone/Acetamin 5/325 tab ORAL PRN ×3 (04:37→20:20)
--- NOTE | 2018-09-16 07:16 | Pulmonology Progress Note ---
Assessment/Plan Assessment/Plan 1. Hemoptysis, possibly due to pneumonia, tuberculosis is to be considered. Metastatic neoplasm seems unlikely. Recent chest x-ray at [facility] showed atelectasis at right base and pleural effusions and infiltrate on the left side. 2. End-stage renal disease. On dialysis. 3. Cervical osteomyelitis. 4. Recent stroke. 5. Renal mass. 6. Penicillin allergy. 7. 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 8. Peripheral artery disease. 9. Renal mass. 10. Clostridium difficile colitis. PLAN: Fu cultures, AFB ID following abx nebs adn suction HD per renal CXR monday o2 for now not using bipap at all can dc from [facility] room Subjective Constitutional: Reports: no symptoms HEENT: Repors: no symptoms Respiratory: Reports: no symptoms Allergies: Coded Allergies: PENICILLINS (Unverified Allergy, Unknown, 09/12/18) Subjective awake no distress coughing with minimal phlegm not getting oob no nv or bleeding no bipap--refusing Objective Last 24 Hour Vital Signs Date Time Temp Pulse Resp B/P (MAP) Pulse Ox O2 Delivery O2 Flow Rate FiO2 09/16/18 04:00 Nasal Cannula 3.0 09/16/18 04:00 69 09/16/18 04:00 97.3 85 25 154/76 (102) 96 09/16/18 00:00 97.9 77 21 146/62 (90) 99 09/16/18 00:00 82 09/16/18 00:00 Nasal Cannula 3.0 09/15/18 23:58 84 18 98 Nasal Cannula 3.0 32 09/15/18 23:58 98 Nasal Cannula 3.0 32 09/15/18 20:00 97.5 85 31 148/66 (93) 95 09/15/18 20:00 89 09/15/18 20:00 Nasal Cannula 3.0 09/15/18 16:00 97.7 77 20 143/65 (91) 97 09/15/18 16:00 77 09/15/18 16:00 Nasal Cannula 3.0 09/15/18 12:00 74 09/15/18 12:00 97.2 73 18 125/79 (94) 98 09/15/18 12:00 Nasal Cannula 3.0 09/15/18 08:52 154/77 09/15/18 08:00 77 09/15/18 08:00 Nasal Cannula 3.0 09/15/18 08:00 97.3 75 20 154/77 (102) 96 09/15/18 07:38 98 Nasal Cannula 3.0 32 Intake and Output 09/15/18 09/16/18 19:00 07:00 Intake Total 480 ml Balance 480 ml Intake Oral 480 ml General Appearance: cachetic Respiratory/Chest: crackles/rales, rhonchi Cardiovascular: normal rate, regular rhythm, murmur systolic, edema Abdomen: soft, non tender, no organomegaly Neurologic/Psychiatric: alert Musculoskeletal: normal muscle bulk Microbiology Date/Time Source Procedure Growth Status 09/14/18 09:00 Sputum AFB Specimen Processing Tissue - Final Resulted 09/14/18 09:00 Sputum Acid Fast Bacilli Smear - Final Resulted 09/14/18 09:00 Sputum Acid Fast Bacilli Culture Pending Resulted 09/13/18 07:25 Sputum Induced Gram Stain - Final Resulted 09/13/18 07:25 Sputum Culture - Preliminary Yeast Species Resulted 09/13/18 07:25 Sputum AFB Specimen Processing Tissue - Final Resulted 09/13/18 07:25 Sputum Acid Fast Bacilli Smear - Final Resulted 09/13/18 07:25 Sputum Acid Fast Bacilli Culture Pending Resulted Current Medications Medications (Trade) Dose Ordered Sig/[place] Route PRN Reason Start Time Stop Time Status Last Admin Dose Admin Acetaminophen (Tylenol) 650 mg Q6H PRN ORAL Mild Pain/Temp > 100.5 09/12/18 11:30 10/12/18 11:29 Acetaminophen/ Hydrocodone Bitart ([place] 5/325) 1 tab Q4H PRN ORAL Moderate Pain (Pain Scale 4-6) 09/13/18 14:15 09/20/18 14:14 09/16/18 04:37 Cefepime HCl 1 gm/ Dextrose 55 ml @ 110 mls/hr Q24H IVPB 09/15/18 04:00 09/22/18 03:59 09/16/18 04:29 Chlorhexidine Gluconate (Mira-Hex 2%) 1 applic DAILY@2000 TOPIC 09/13/18 20:00 10/13/18 19:59 09/15/18 21:30 Epoetin Rudolph (Epoetin Rudolph(ESRD on dialysis)) 2,000 unit MON-MON-MON SUBQ 09/14/18 21:00 10/14/18 20:59 09/14/18 20:47 Epoetin Rudolph (Epoetin Rudolph(ESRD on dialysis)) 3,000 unit MON- SUBQ 09/14/18 21:00 10/14/18 20:59 09/14/18 20:46 Gabapentin (Neurontin) 100 mg DAILY ORAL 09/14/18 09:00 10/14/18 08:59 09/15/18 08:52 Guaifenesin (Robitussin) 100 mg Q4H PRN ORAL For Cough 09/12/18 13:00 10/12/18 12:59 Levothyroxine Sodium (Synthroid) 150 mcg Q24H ORAL 09/13/18 06:30 10/13/18 06:29 09/16/18 05:56 Losartan Potassium (Cozaar) 100 mg DAILY ORAL 09/15/18 09:00 10/15/18 08:59 09/15/18 08:52 Methocarbamol (Robaxin) 500 mg QIDPRN PRN ORAL MUSCLE PAIN 09/12/18 12:30 10/12/18 12:29 09/16/18 00:43 Metronidazole 100 ml @ 100 mls/hr Q8HR IVPB 09/12/18 22:00 09/19/18 21:59 09/16/18 05:56 Pantoprazole (Protonix) 40 mg DAILY ORAL 09/13/18 09:00 10/13/18 08:59 09/15/18 08:51 Pravastatin Sodium (Pravachol) 40 mg BEDTIME ORAL 09/12/18 21:00 10/12/18 20:59 09/15/18 21:30 Vancomycin HCl (Vanco rx to dose) 1 ea DAILY PRN MISC Per rx protocol 09/12/18 18:45 10/12/18 18:44 Vitamin B Complex/ Vit C/Folic Acid (Nephrovite) 1 tab DAILY ORAL 09/13/18 09:00 10/13/18 08:59 09/15/18 08:51 Zinc Sulfate (Zinc Sulfate) 220 mg DAILY ORAL 09/13/18 09:00 10/13/18 08:59 09/15/18 08:51 Zolpidem Tartrate (Ambien) 5 mg BEDTIME PRN ORAL Insomnia 09/12/18 12:30 09/19/18 12:29 09/13/18 22:04 Clementine Mckeon DO Sep 16, 2018 07:16
--- NOTE | 2018-09-16 07:31 | NUR ---
HAND-OFF: Report given to SUNG Quintanilla. Patient is awake sitting high samlls's eating breakfast; resting comfortably. Left side permacath in place.
--- NOTE | 2018-09-16 07:39 | NUR ---
NURSE NOTES: received patient report from carley christy. patient is on bed awake. comfortably eating breakfast. no arrythmias reported during the night. bed is low and locked for safety. will follow plan of care.
[2018-09-16] MEDS: Zinc Sulfate 220mg cap ORAL SCH (08:35)
[2018-09-16] MEDS: Losartan 50mg tab ORAL SCH (08:35)
[2018-09-16] MEDS: Nephrovite tab (Rena-Vite) ORAL SCH (08:35)
--- NOTE | 2018-09-16 09:12 | Diagnostic Imaging Report ---
EXAM: XR Chest, 1 View. CLINICAL HISTORY: INFECT TECHNIQUE: Frontal view of the chest. COMPARISON: 09/13/18 FINDINGS: Lungs: There is new complete opacification of the left hemithorax, likely due to presence of a large left pleural effusion. The right lung is mildly hypoinflated, with mild interstitial lung disease or pulmonary edema again noted. Heart: Cardiac silhouette is obscured due to the left pleural effusion. Mediastinum: No mediastinal shift. Again seen are left subclavian central venous catheters, unchanged in position. Bones: No acute osseous abnormality. IMPRESSION: New complete opacification of the left hemithorax likely due to a large pleural effusion. Consider further evaluation with CT chest for confirmation. Otherwise no significant interval change.
--- NOTE | 2018-09-16 09:37 | Infectious Diseases Prog Note ---
Assessment/Plan Assessment/Plan . possible sepsis, leukocytosis, ? TB pna, ? HCAP, hx endocarditis and cervical osteomyelitis - continue vancomycin, cefepime and flagyl - check cultures, labs and chest x-ray - see below for recs for hx endocarditis and cervical osteomyelitis - leukocytosis improved 2. Rule out TB pneumonia - AFB smear X 2: negative , pendingTB gold, isolation for now. 3. History of cervical osteomyelitis - continue abx, patient to f/u with primary treatment team once discharged 4. History of endocarditis - hx enterococcus bacteremia and endocarditis per [facility] records. Patient was being treated with ? zosyn until 10/01/18. Patient to follow with primary treatment team once discharged. (Note enterococcus was sensitive to ampicillin/pcn and vancomycin.) records from [facility]. Check echo and again sedimentation rate and check surveillance blood cultures. 5. The patient is on vancomycin and cefepime to have coverage for cervical osteomyelitis and endocarditis, but we will have to see what the pathogens were in the records. 6. Anemia. 7. End-stage renal disease, on hemodialysis. 8. History of fracture of the right femur. 9. History of hypertension. Blood pressure treatment per Dr. Adams. 10. Weakness. 11. Gastroesophageal reflux disease. 12. Hyperlipidemia. 13. Hypothyroidism. 14. History of cataracts and benign neoplasm of the parathyroid. 15. Allergic to penicillin tolerates cephalosporins. 16. Social history is negative. 17. Family history is noncontributory. 18. MAR was noted. 19. Case was discussed with RN. 20. Continue treatment per primary consultants. Subjective ROS Limited/Unobtainable: Yes Constitutional: Reports: no symptoms Respiratory: Reports: productive cough, other - small amount of blood in sputum Gastrointestinal/Abdominal: Reports: no symptoms Genitourinary: Reports: no symptoms Musculoskeletal: Reports: pain Allergies: Coded Allergies: PENICILLINS (Unverified Allergy, Unknown, 09/12/18) Objective Vital Signs Last 24 Hour Vital Signs Date Time Temp Pulse Resp B/P (MAP) Pulse Ox O2 Delivery O2 Flow Rate FiO2 09/16/18 08:35 142/72 09/16/18 08:00 97.3 76 23 142/72 (95) 96 09/16/18 08:00 Nasal Cannula 3.0 09/16/18 04:00 Nasal Cannula 3.0 09/16/18 04:00 69 09/16/18 04:00 97.3 85 25 154/76 (102) 96 09/16/18 00:00 97.9 77 21 146/62 (90) 99 09/16/18 00:00 82 09/16/18 00:00 Nasal Cannula 3.0 09/15/18 23:58 84 18 98 Nasal Cannula 3.0 32 09/15/18 23:58 98 Nasal Cannula 3.0 32 09/15/18 20:00 97.5 85 31 148/66 (93) 95 09/15/18 20:00 89 09/15/18 20:00 Nasal Cannula 3.0 09/15/18 16:00 97.7 77 20 143/65 (91) 97 09/15/18 16:00 77 09/15/18 16:00 Nasal Cannula 3.0 09/15/18 12:00 74 09/15/18 12:00 97.2 73 18 125/79 (94) 98 09/15/18 12:00 Nasal Cannula 3.0 Height (Feet): 5 Height (Inches): 4.00 Weight (Pounds): 119 General Appearance: no acute distress, cachetic HEENT: mucous membranes moist Respiratory/Chest: lungs clear Cardiovascular: normal rate, other - left Permacath Abdomen: soft, non tender Extremities: no edema Neurologic/Psychiatric: alert, responsive, other - decreased hearing Musculoskeletal: atrophy Microbiology Date/Time Source Procedure Growth Status 09/14/18 09:00 Sputum AFB Specimen Processing Tissue - Final Resulted 09/14/18 09:00 Sputum Acid Fast Bacilli Smear - Final Resulted 09/14/18 09:00 Sputum Acid Fast Bacilli Culture Pending Resulted Laboratory Tests Test 09/16/18 08:20 Random Vancomycin Level 21.8 ug/mL Current Medications Medications (Trade) Dose Ordered Sig/[place] Route PRN Reason Start Time Stop Time Status Last Admin Dose Admin Acetaminophen (Tylenol) 650 mg Q6H PRN ORAL Mild Pain/Temp > 100.5 09/12/18 11:30 10/12/18 11:29 Acetaminophen/ Hydrocodone Bitart ([place] 5/325) 1 tab Q4H PRN ORAL Moderate Pain (Pain Scale 4-6) 09/13/18 14:15 09/20/18 14:14 09/16/18 04:37 Cefepime HCl 1 gm/ Dextrose 55 ml @ 110 mls/hr Q24H IVPB 09/15/18 04:00 09/22/18 03:59 09/16/18 04:29 Chlorhexidine Gluconate (Mira-Hex 2%) 1 applic DAILY@2000 TOPIC 09/13/18 20:00 10/13/18 19:59 09/15/18 21:30 Epoetin Rudolph (Epoetin Rudolph(ESRD on dialysis)) 2,000 unit MON-MON-MON SUBQ 09/14/18 21:00 10/14/18 20:59 09/14/18 20:47 Epoetin Rudolph (Epoetin Rudolph(ESRD on dialysis)) 3,000 unit SUBQ 09/14/18 21:00 10/14/18 20:59 09/14/18 20:46 Gabapentin (Neurontin) 100 mg DAILY ORAL 09/14/18 09:00 10/14/18 08:59 09/16/18 08:35 Guaifenesin (Robitussin) 100 mg Q4H PRN ORAL For Cough 09/12/18 13:00 10/12/18 12:59 Levothyroxine Sodium (Synthroid) 150 mcg Q24H ORAL 09/13/18 06:30 10/13/18 06:29 09/16/18 05:56 Losartan Potassium (Cozaar) 100 mg DAILY ORAL 09/15/18 09:00 10/15/18 08:59 09/16/18 08:35 Methocarbamol (Robaxin) 500 mg QIDPRN PRN ORAL MUSCLE PAIN 09/12/18 12:30 10/12/18 12:29 09/16/18 00:43 Metronidazole 100 ml @ 100 mls/hr Q8HR IVPB 09/12/18 22:00 09/19/18 21:59 09/16/18 05:56 Pantoprazole (Protonix) 40 mg DAILY ORAL 09/13/18 09:00 10/13/18 08:59 09/16/18 08:35 Pravastatin Sodium (Pravachol) 40 mg BEDTIME ORAL 09/12/18 21:00 10/12/18 20:59 09/15/18 21:30 Vancomycin HCl (Vanco rx to dose) 1 ea DAILY PRN MISC Per rx protocol 09/12/18 18:45 10/12/18 18:44 Vitamin B Complex/ Vit C/Folic Acid (Nephrovite) 1 tab DAILY ORAL 09/13/18 09:00 10/13/18 08:59 09/16/18 08:35 Zinc Sulfate (Zinc Sulfate) 220 mg DAILY ORAL 09/13/18 09:00 10/13/18 08:59 09/16/18 08:35 Zolpidem Tartrate (Ambien) 5 mg BEDTIME PRN ORAL Insomnia 09/12/18 12:30 09/19/18 12:29 09/13/18 22:04 Brian Padilla MD Sep 16, 2018 09:37
[2018-09-16] MEDS ORDERED: NS 275ml ONE ×2 (10:10→15:57)
[2018-09-16] MEDS ORDERED: Tubing IV Secondary IV ONE (10:10)
--- NOTE | 2018-09-16 10:36 | Nephrology Progress Note ---
Assessment/Plan Problem List: (1) CHF (congestive heart failure), NYHA class II (2) Hemoptysis, unspecified (3) Osteomyelitis of cervical spine (4) ESRD (end stage renal disease) on dialysis (5) Bilateral pleural effusion (6) Malnutrition Plan dialysis 09/12 13 14 for fluid overload, stop amlodipine to mitigate hypotension , pulm care, seems improved after fluid removal, continuing rx for osteo and possible pneumonia, possible thoracentesis Subjective Constitutional: Reports: weakness HEENT: Reports: no symptoms Genitourinary: Reports: incontinence Neurologic/Psychiatric: Reports: pre-existing deficit Objective Objective Last 24 Hour Vital Signs Date Time Temp Pulse Resp B/P (MAP) Pulse Ox O2 Delivery O2 Flow Rate FiO2 09/16/18 08:35 142/72 09/16/18 08:00 97.3 76 23 142/72 (95) 96 09/16/18 08:00 77 09/16/18 08:00 Nasal Cannula 3.0 09/16/18 04:00 Nasal Cannula 3.0 09/16/18 04:00 69 09/16/18 04:00 97.3 85 25 154/76 (102) 96 09/16/18 00:00 97.9 77 21 146/62 (90) 99 09/16/18 00:00 82 09/16/18 00:00 Nasal Cannula 3.0 09/15/18 23:58 84 18 98 Nasal Cannula 3.0 32 09/15/18 23:58 98 Nasal Cannula 3.0 32 09/15/18 20:00 97.5 85 31 148/66 (93) 95 09/15/18 20:00 89 09/15/18 20:00 Nasal Cannula 3.0 09/15/18 16:00 97.7 77 20 143/65 (91) 97 09/15/18 16:00 77 09/15/18 16:00 Nasal Cannula 3.0 09/15/18 12:00 74 09/15/18 12:00 97.2 73 18 125/79 (94) 98 09/15/18 12:00 Nasal Cannula 3.0 Intake and Output 09/15/18 09/16/18 19:00 07:00 Intake Total 480 ml 495 ml Balance 480 ml 495 ml Intake Oral 480 ml 240 ml IV Total 255 ml Laboratory Tests 09/16/18 08:20: Random Vancomycin Level 21.8 Height (Feet): 5 Height (Inches): 4.00 Weight (Pounds): 119 General Appearance: no apparent distress, thin EENT: normal ENT inspection Neck: normal alignment Cardiovascular: normal rate, regular rhythm Respiratory/Chest: decreased breath sounds Abdomen: non tender Extremities: other - no edema Dragan Marcum MD Sep 16, 2018 10:36
--- NOTE | 2018-09-16 10:40 | NUR ---
NURSE NOTES: called [facility] for scheduled dialysis tomorrow for this patient. spoke with Michelle. will continue to monitor.
--- NOTE | 2018-09-16 11:00 | NUR ---
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 no new order received. will continue to monitor.
--- NOTE | 2018-09-16 19:24 | NUR ---
HAND-OFF: Report given to amie christy.
--- NOTE | 2018-09-16 19:25 | NUR ---
NURSE NOTES: Received patient from Socorro ALMARAZ. Patient is awake, talking, and alert and oriented X4 on NC 3L. No acte distress. Bed rails x3 up, call light in reach and bed at its lowest position. Will continue to monitor. Addendum: 09/16/18 at 1945 by Curtis Valverde RN No acute distress.
[2018-09-16] MEDS: Dyna-Hex 2% Top Sol 2oz TOPIC SCH (20:18)
--- NOTE | 2018-09-16 22:00 | NUR ---
NURSE NOTES: Patient refuses to use bipap, charge nurse notified as well as RT. Patient is tolerating 3L NC, oxygen saturation is 97 while sleeping. Patient is in a good mood and looks relaxed while awake.
[2018-09-16] MEDS: Zolpidem 5mg tab ORAL PRN (23:10)
--- NOTE | 2018-09-17 02:45 | Progress Note ---
DATE: 09/16/2018 CARDIOLOGY PROGRESS NOTE SUBJECTIVE: The patient has not been using BiPAP support, refusing it. OBJECTIVE: GENERAL: She is in no distress. VITAL SIGNS: Blood pressure 146/62, pulse 77, respiratory rate 21, and afebrile. Monitored rhythm, sinus. LUNGS: Bilateral breath sounds. Scattered rhonchi. HEART: Regular rhythm and rate. Diminished S1. Normal S2. A 2/6 systolic murmur at the apex. ABDOMEN: Soft and nontender. EXTREMITIES: No edema. LABORATORY AND DIAGNOSTIC DATA: No new labs today. Cultures remain negative. Chest x-ray, opacification of the left hemithorax, likely pleural effusion. IMPRESSION: 1. Pleural effusion. 2. Healthcare-acquired pneumonia. 3. Sepsis. 4. Recent endocarditis. 5. End-stage renal disease. 6. Acute on chronic diastolic congestive heart failure. PLAN: 1. Will need thoracentesis. 2. Continue hemodialysis with ultrafiltration. 3. Hold parameters for antihypertensives. 4. Respiratory hygiene. 5. Antimicrobials. Edward Mendez M.D. DR: BESSIE JOB#: [id number] CC:
[2018-09-17] MEDS: HYDROcodone/Acetamin 5/325 tab ORAL PRN ×2 (02:49→14:26)
[2018-09-17 03:59] VITALS: BP 153/77
[2018-09-17] MEDS: Cefepime 1gm in D5W 55ml IVPB SCH (04:03)
[2018-09-17] MEDS ORDERED: Heparin Sod 1000 units/ml 10ml IV PRN (06:00)
--- NOTE | 2018-09-17 07:35 | NUR ---
HAND-OFF: Report given to Jovon Garcia RN.
--- NOTE | 2018-09-17 07:36 | NUR ---
NURSE NOTES: RECEIVED PATIENT FROM Sai NIETO. PATIENT IS LYING IN BED, AWAKE, ALERT AND ORIENTED. HOOKED TO GEOLOGY PROFESSOR. ON 3L NC. NO SIGNS OF DISTRESS OF THE MOMENT. NOTED SKIN ALTERATION. NOTED EXTERNAL PACEMAKER ON R UPPER CHEST. WITH B UA AV SHUNT. L SUBCLAVIAN PERMACATH FOR HD PORT. L SC LINE, 1 LUMEN. CALL LIGHT WITHIN REACH. BED AT LOWEST POSITION. SIDE RAILS UP. WILL CONTINUE TO MONITOR.
[2018-09-17 08:00] VITALS: BP 126/96
--- NOTE | 2018-09-17 08:55 | NUR ---
RADIOLOGY DEPT., CHEST X-RAY DONE.-P.DYE
--- NOTE | 2018-09-17 09:49 | Cardiology Report ---
APPROVED REPORT EXAM: Two-dimensional and M-mode echocardiogram with Doppler and color Doppler. INDICATION Endocarditis M-Mode DIMENSIONS IVSd1.0 (0.7-1.1cm)Left Atrium (MM)4.2 (1.6-4.0cm) LVDd4.2 (3.5-5.6cm)Aortic Root2.7 (2.0-3.7cm) PWd0.9 (0.7-1.1cm)Aortic Cusp Exc.1.1 (1.5-2.0cm) LVDs2.7 (2.5-4.0cm) PWs1.5 cm Normal left ventricular chamber size, systolic function and wall motion. Left ventricular ejection fraction estimated to be 55-60 %. No evidence of left ventricular hypertrophy. Large plueral effusion. Mild left atrial enlargement. Right cardiac chamber sizes are within normal limits. Mild focal aortic valve sclerosis with adequate cusp excursion. Thickened mitral valve leaflets with normal excursion. Mitral annulus and aortic root calcification. Normal pulmonic valve structure. Normal tricuspid valve structure. IVC is normal in size with physiological collapse. A color flow and spectral Doppler study was performed and revealed: No aortic regurgitation. Severe mitral regurgitation. Normal left ventricular diastolic function. Severe tricuspid regurgitation. Tricuspid systolic velocities suggests peak right ventricular systolic pressure of 104 mmHg, consistent with severe pulmonary hypertension. No pulmonic regurgitation present.
--- NOTE | 2018-09-17 10:18 | NUR ---
DISCHARGE/TRANSFER: NOTE CM RECEIVED A CALL FROM [facility]. PATIENT IS ON THE LIST THE LIST TO BE TRANSFERRED FOR HLOC.
[2018-09-17] MEDS: Losartan 50mg tab ORAL SCH (10:43)
[2018-09-17] MEDS: Nephrovite tab (Rena-Vite) ORAL SCH (10:43)
[2018-09-17] MEDS: Zinc Sulfate 220mg cap ORAL SCH (10:43)
--- NOTE | 2018-09-17 10:54 | NUR ---
RD ASSESSMENT & RECOMMENDATIONS SEE CARE ACTIVITY FOR COMPLETE ASSESSMENT DAILY ESTIMATED NEEDS: Needs based on ESRD + HD, wounds/ 57kg 30-35 kcals/kg 8319-5264 total kcals 1.25-1.8 g protein/kg 71-102 g total protein 20-22 mL/kg 6827-7918 total fluid mLs NUTRITION DIAGNOSIS: Increased kcal/prot intake needs R/T renal dysfunction, wound healing as evidenced by ESRD dx, on HD, admitted w/ full thickness wound @ lateral R tibia and multiple non-blanchable erythemas, refer to WC eval. CURRENT DIET:RENAL, mech soft finely chopped PO DIET RECOMMENDATIONS: RENAL/ texture per SUSTAINABILITY ENGINEER ADDITIONAL RECOMMENDATIONS: * Calibrated bedscale wt for accurate CBW (w/ added P200 mattress) * Nepro 1 tetra joel daily (425kcal/19g prot per joel) * Wound healing: add Isauro 1pkt BID/ continue Nephrovite x 1 * Monitor renal fxn and lytes * Monitor for continued good PO intake * SUSTAINABILITY ENGINEER eval for appropriate texture: h/o CVA
--- NOTE | 2018-09-17 11:50 | Diagnostic Imaging Report ---
Indication: Dyspnea, cough Technique: One view of the chest Comparison: 09/16/2018 Findings: There is persistent complete opacification of the left hemithorax. There is increasing congestion and likely pleural fluid on the right. Left shoulder hardware, left jugular tunneled dialysis catheter and central venous catheter again demonstrated Impression: Complete opacification of the left hemithorax, likely due to complete atelectasis of left lung, exacerbated by pleural fluid Increasing right lung interstitial congestion and pleural fluid Findings discussed by phone with Dr. Adams at the time of interpretation
[2018-09-17 12:00] VITALS: BP 146/79
--- NOTE | 2018-09-17 12:00 | NUR ---
NURSE NOTES: PATIENT HAD EPISODE OF SOB, VETI MASK ON SATING AT 61%. PLACED ON BIPAP. ABG DONE. DR MARR MADE AWARE. BROTHER AT THE BEDSIDE. WILL CONTINUE TO MONITOR.
--- NOTE | 2018-09-17 13:30 | NUR ---
NURSE NOTES: SP THORACENTESIS 400ML OUTPUT. FLUID WAS SENT TO LAB. ON VENTI MASK AT 10L, FiO2 AT 45%. WILL CONTINUE TO MONITOR.
--- NOTE | 2018-09-17 13:58 | Pre-Procedure Note/Attestation ---
Pre-Procedure Note/Attestation Complete Prior to Procedure Planned Procedure: left Procedure Narrative: Thoracentesis Indications for Procedure Pre-Operative Diagnosis: pleural effusion Attestation I attest that I discussed the nature of the procedure; its benefits; risks and complications; and alternatives (and the risks and benefits of such alternatives ), prior to the procedure, with the patient (or the patient's legal community service representative). I attest that, if there was a reasonable possibility of needing a blood transfusion, the patient (or the patient's legal community service representative) was given the [facility] standardized written summary, pursuant to the Jimmy Lanny Blood Safety Act ([place] Health and Safety Code # 1645, as amended). I attest that I re-evaluated the patient just prior to the surgery and that there has been no change in the patient's H&P, except as documented below: Fredi Nguyễn MD Sep 17, 2018 13:58
--- NOTE | 2018-09-17 14:16 | Pulmonology Progress Note ---
Assessment/Plan Assessment/Plan 1. Hemoptysis, possibly due to pneumonia, tuberculosis is excluded. 2. End-stage renal disease. On dialysis. 3. Cervical osteomyelitis. 4. Recent stroke. 5. Renal mass. 6. Penicillin allergy. 7. 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 8. Peripheral artery disease. 9. Renal mass. 10. Clostridium difficile colitis. AFB neg x 3; TB gold neg dc isolation R lung looks better, L opacified with fluid and possibly atelectasis thoracentesis disc w RN, Dr Nguyễn cont dialysis Subjective Respiratory: Denies: shortness of breath Allergies: Coded Allergies: PENICILLINS (Unverified Allergy, Unknown, 09/12/18) Objective Last 24 Hour Vital Signs Date Time Temp Pulse Resp B/P (MAP) Pulse Ox O2 Delivery O2 Flow Rate FiO2 09/17/18 12:00 77 09/17/18 12:00 Bi-pap 100.0 09/17/18 12:00 96.6 74 22 146/79 (101) 100 09/17/18 10:43 126/96 09/17/18 08:00 67 09/17/18 08:00 97.3 79 26 126/96 (106) 99 09/17/18 08:00 Nasal Cannula 3.0 09/17/18 07:00 95 Nasal Cannula 3.0 32 09/17/18 07:00 88 20 95 Nasal Cannula 3.0 32 09/17/18 04:00 Nasal Cannula 3.0 09/17/18 04:00 74 09/17/18 03:59 97.5 81 18 153/77 (102) 96 09/17/18 00:00 91 09/16/18 23:58 Nasal Cannula 3.0 09/16/18 23:57 97.3 93 15 157/83 (107) 96 09/16/18 20:00 Nasal Cannula 3.0 09/16/18 20:00 98.2 84 23 148/79 (102) 96 09/16/18 20:00 87 09/16/18 19:34 79 18 98 Nasal Cannula 3.0 32 09/16/18 19:34 98 Nasal Cannula 3.0 32 09/16/18 16:00 Nasal Cannula 3.0 09/16/18 16:00 75 09/16/18 16:00 97.3 80 20 151/65 (93) 99 Intake and Output 09/16/18 09/17/18 19:00 07:00 Intake Total 450 ml 442.70012 ml Balance 450 ml 442.21267 ml Intake Oral 450 ml 100 ml IV Total 342.16172 ml # Bowel Movements 3 1 General Appearance: no acute distress HEENT: atraumatic Respiratory/Chest: decreased breath sounds Cardiovascular: normal rate Microbiology Date/Time Source Procedure Growth Status 09/15/18 06:50 Sputum AFB Specimen Processing Tissue - Final Resulted 09/15/18 06:50 Sputum Acid Fast Bacilli Smear - Final Resulted 09/15/18 06:50 Sputum Acid Fast Bacilli Culture Pending Resulted Laboratory Tests 09/17/18 11:27: Arterial Blood pH 7.352, Arterial Blood Partial Pressure CO2 41.7, Arterial Blood Partial Pressure O2 81.9, Arterial Blood HCO3 22.6, Arterial Blood Oxygen Saturation 95.6, Arterial Blood Base Excess -2.8L, Red Test Positive Current Medications Medications (Trade) Dose Ordered Sig/[place] Route PRN Reason Start Time Stop Time Status Last Admin Dose Admin Acetaminophen (Tylenol) 650 mg Q6H PRN ORAL Mild Pain/Temp > 100.5 09/12/18 11:30 10/12/18 11:29 Acetaminophen/ Hydrocodone Bitart (Dillon 5/325) 1 tab Q4H PRN ORAL Moderate Pain (Pain Scale 4-6) 09/13/18 14:15 09/20/18 14:14 09/17/18 02:49 Cefepime HCl 1 gm/ Dextrose 55 ml @ 110 mls/hr Q24H IVPB 09/15/18 04:00 09/22/18 03:59 09/17/18 04:03 Chlorhexidine Gluconate (Mira-Hex 2%) 1 applic DAILY@2000 TOPIC 09/13/18 20:00 10/13/18 19:59 09/16/18 20:18 Epoetin Rudolph (Epoetin Rudolph(ESRD on dialysis)) 2,000 unit MON-MON-MON SUBQ 09/14/18 21:00 10/14/18 20:59 09/14/18 20:47 Epoetin Rudolph (Epoetin Rudolph(ESRD on dialysis)) 3,000 unit MON-MON-MON SUBQ 09/14/18 21:00 10/14/18 20:59 09/14/18 20:46 Gabapentin (Neurontin) 100 mg DAILY ORAL 09/14/18 09:00 10/14/18 08:59 09/17/18 10:43 Guaifenesin (Robitussin) 100 mg Q4H PRN ORAL For Cough 09/12/18 13:00 10/12/18 12:59 Heparin Sodium (Porcine) (Heparin Sod 1000 units/ml 10ml) 500 unit ONCE PRN IV HD 09/17/18 06:00 09/17/18 23:59 Levothyroxine Sodium (Synthroid) 150 mcg Q24H ORAL 09/13/18 06:30 10/13/18 06:29 09/17/18 05:38 Losartan Potassium (Cozaar) 100 mg DAILY ORAL 09/15/18 09:00 10/15/18 08:59 09/17/18 10:43 Methocarbamol (Robaxin) 500 mg QIDPRN PRN ORAL MUSCLE PAIN 09/12/18 12:30 10/12/18 12:29 09/16/18 00:43 Metronidazole 100 ml @ 100 mls/hr Q8HR IVPB 09/12/18 22:00 09/19/18 21:59 09/17/18 05:38 Pantoprazole (Protonix) 40 mg DAILY ORAL 09/13/18 09:00 10/13/18 08:59 09/17/18 10:43 Pravastatin Sodium (Pravachol) 40 mg BEDTIME ORAL 09/12/18 21:00 10/12/18 20:59 09/16/18 20:19 Sodium Chloride 1,000 ml @ 500 mls/hr Q2H PRN IVLG sbp<90 during hd 09/17/18 06:00 09/17/18 23:59 Vancomycin HCl (Vanco rx to dose) 1 ea DAILY PRN MISC Per rx protocol 09/12/18 18:45 10/12/18 18:44 Vancomycin HCl 1 gm/Dextrose 275 ml @ 183.708 mls/hr ONCE IVPB 09/17/18 21:00 09/17/18 22:00 Vitamin B Complex/ Vit C/Folic Acid (Nephrovite) 1 tab DAILY ORAL 09/13/18 09:00 10/13/18 08:59 09/17/18 10:43 Zinc Sulfate (Zinc Sulfate) 220 mg DAILY ORAL 09/13/18 09:00 10/13/18 08:59 09/17/18 10:43 Zolpidem Tartrate (Ambien) 5 mg BEDTIME PRN ORAL Insomnia 09/12/18 12:30 09/19/18 12:29 09/16/18 23:10 Curtis Adams MD Sep 17, 2018 14:16
--- NOTE | 2018-09-17 14:46 | Brief Operative Note ---
Immediate Post Operative Note Operative Note Pre-op Diagnosis: pleural effusion Procedure: Thoracentesis L Post-op Diagnosis: same as pre-op Surgeon: Isaac Barraza Anesthesia: local Specimen: yes - yellow fluid sent to lab Complications: none Fluids: none Implant(s) used?: No Fredi Barraza MD Sep 17, 2018 14:46
--- NOTE | 2018-09-17 15:10 | Diagnostic Imaging Report ---
Indication: Post thoracentesis Technique: One view of the chest Comparison: 6 hours earlier Findings: Interim reexpansion of the previously ectatic left lung. There is residual interstitial and airspace opacity, as well as some residual opacity at the left lung base. No pneumothorax. There is some atelectasis at the right lung base as well as mild generalized interstitial congestion on the right. Other findings remain unchanged Impression: Considerable reexpansion of the previously atelectatic left lung despite relatively small (400 mL) volume of interim thoracentesis. Interstitial airspace opacities likely reflect underlying residual parenchymal disease, versus reexpansion pulmonary edema. There may be some residual pleural fluid as well. Persistent mild interstitial congestion and basilar atelectasis on the right No pneumothorax
[2018-09-17 16:00] VITALS: BP 101/59
--- NOTE | 2018-09-17 16:15 | NUR ---
NURSE NOTES: ANOTHER EPISODE OF SOB. BACK ON BIPAP. DR MARR MADE AWARE. SPOKE WITH THE SON - MOODY RE THE POLST AND CONFIRMED THAT HE'S AWARE OF IT. WILL CONTINUE OT MONITOR.
--- NOTE | 2018-09-17 17:44 | Diagnostic Imaging Report ---
Indications: Pleural effusion Technique: Ultrasound used to localize optimal puncture site. Sterile prepping and draping left chest. Local anesthesia with 1% lidocaine. Under real-time ultrasound guidance, puncture pleural space using thoracentesis needle. Stylet removed. Catheter placed to vacuum bottle suction. Total 400 milliliters of fluid aspirated. Patient tolerated procedure well, without immediate complication. Findings: Followup sonography demonstrates complete resolution of pleural fluid. Impression: Successful ultrasound-guided thoracentesis, yielding 400 milliliters of fluid
--- NOTE | 2018-09-17 18:00 | NUR ---
NURSE NOTES: DIALYSIS STARTED. STILL ON BIPAP. WILL CONTINUE TO MONITOR.
--- NOTE | 2018-09-17 19:35 | NUR ---
HAND-OFF: Report given to Jefe Michel RN.
--- NOTE | 2018-09-17 19:40 | NUR ---
NURSE NOTES: Received report from SUNG Toney. Observed pt lying on the bed. A/O x4, denies pain at this time. SR with cardiac exercise physiologist. On Bipap 15/5, 30%, with no signs of SOB. Abdomen soft, round, and non-tender. L UA AV shunt noted. L subclavian permocath, intact and asymptomatic. Central line at L subclavian, intact and patent, TKO. Bed in the lowest position. Side rails up x3. Will continue to monitor.
[2018-09-17 20:00] VITALS: BP 97/54
--- NOTE | 2018-09-17 20:00 | Progress Note ---
DATE: 09/17/2018 CARDIOLOGY PROGRESS NOTE SUBJECTIVE: No new complaints. less distress. Continues to have abnormal radiograph revealing complete left hemithorax and increasing right interstitial congestion. OBJECTIVE: VITAL SIGNS: Blood pressure 126/96, pulse 67, respirations 26. LUNGS: Scattered rhonchi. Diminished breath sounds of the left. HEART: Regular rhythm and rate. Normal S1, S2 with a 2/6 holosystolic murmur. ABDOMEN: Soft. EXTREMITIES: No edema. LABORATORY DATA: ABG, pH 7.35, pCO2 42, pO2 81. IMPRESSION: 1. Acute respiratory acidosis. 2. Left hemithorax probable atelectasis and pleural effusion. 3. endocarditis. 4. Severe mitral regurgitation. 5. Severe pulmonary hypertension. 6. Hypertensive heart disease. 7. Acute on chronic diastolic congestive heart failure. PLAN: 1. Pulmonary followup regarding thoracentesis and lung reexpansion. 2. Hemodialysis with ultrafiltration. 3. Antimicrobials and respiratory hygiene. 4. No additional treatment for endocarditis indicated, unless positive blood cultures are noted. Edward Mendez M.D. DR: MONA JOB#: [id number] CC:
[2018-09-17] MEDS ORDERED: Vancomycin 1gm in D5W 275ml IVPB SCH (21:00)
[2018-09-17] MEDS: metroNIDAZOLE 500mg tab ORAL SCH (21:25)
[2018-09-17] MEDS: Dyna-Hex 2% Top Sol 2oz TOPIC SCH (21:25)
[2018-09-17] MEDS: Epoetin Alfa-EPBX(ESRD on dialysis)2000 units/ml vial SUBQ SCH (21:25)
[2018-09-17] MEDS: Epoetin Alfa-EPBX(ESRD on dialysis)3000 units/ml vial SUBQ SCH (21:25)
[2018-09-18] VITALS: BP 142/66
--- NOTE | 2018-09-18 | NUR ---
NURSE NOTES: No distress noted at this time. Pt lying on the bed, watching television, appears to be calm and comfortable. SR with cardiac surgeon. On venturi mask, 14L 55%, saturating at 99%. No signs of SOB noted. Reposition done. Will continue to monitor.
[2018-09-18] MEDS: Cefepime 1gm in D5W 55ml IVPB SCH (03:10)
--- NOTE | 2018-09-18 03:23 | NUR ---
NURSE NOTES: Pt appears to be tired. C/O having hard time fall asleep but refused to take prn med. Refused to be cleaned. On venturi mask, 14L 55%, saturating at 99%. No signs of SOB noted. SR with clinical staff pharmacist. will continue to monitor.
[2018-09-18 04:00] VITALS: BP 135/72
[2018-09-18 05:12] LABS: BASOPHILS % (AUTO) 1.4 % (0.0-2.0); EOSINOPHILS % (AUTO) 1.3 % (0.0-3.0); HEMATOCRIT 24.3 % (37.0-47.0); LYMPHOCYTES % (AUTO) 8.5 % (20.0-45.0); MEAN CORPUSCULAR VOLUME 106 FL (80-99); MONOCYTES % (AUTO) 6.8 % (1.0-10.0); NEUTROPHILS % (AUTO) 81.9 % (45.0-75.0); PLATELET COUNT 239 K/UL (150-450); RED BLOOD COUNT 2.28 M/UL (4.20-5.40); WHITE BLOOD COUNT 9.8 K/UL (4.8-10.8)
[2018-09-18 05:20] LABS: ALANINE AMINOTRANSFERASE 10 U/L (12-78); ALBUMIN 1.4 G/DL (3.4-5.0); ALBUMIN/GLOBULIN RATIO 0.4 (1.0-2.7); ALKALINE PHOSPHATASE 102 U/L (46-116); ANION GAP 10 mmol/L (5-15); ASPARTATE AMINO TRANSFERASE 26 U/L (15-37); BILIRUBIN,TOTAL 0.7 MG/DL (0.2-1.0); BLOOD UREA NITROGEN 37 mg/dL (7-18); CALCIUM 7.5 MG/DL (8.5-10.1); CARBON DIOXIDE 26 MMOL/L (21-32); CHLORIDE 101 MMOL/L (98-107); CREATININE 3.7 MG/DL (0.55-1.30); POTASSIUM 3.9 MMOL/L (3.5-5.1); SODIUM 137 MMOL/L (136-145)
[2018-09-18] MEDS: metroNIDAZOLE 500mg tab ORAL SCH ×3 (06:13→21:36)
--- NOTE | 2018-09-18 07:32 | NUR ---
HAND-OFF: Report given to SUNG Leon. No distress noted at this time.
[2018-09-18 08:00] VITALS: BP 140/74
--- NOTE | 2018-09-18 08:27 | NUR ---
RADIOLOGY DEPT., CHEST X-RAY DONE.-P.DYE
[2018-09-18] MEDS: Losartan 50mg tab ORAL SCH (09:00)
[2018-09-18] MEDS: Zinc Sulfate 220mg cap ORAL SCH (09:23)
[2018-09-18] MEDS: Nephrovite tab (Rena-Vite) ORAL SCH (09:24)
--- NOTE | 2018-09-18 10:14 | Diagnostic Imaging Report ---
Indication: Shortness of breath Technique: One view of the chest Comparison: 09/17/2018 Findings: Again demonstrated are interstitial airspace opacities throughout the left lung, appearing unchanged. Apparent pleural thickening in the left upper hemithorax likely reflects suspected loculated pleural fluid seen on recent CT scan. Opacity at the left lung base may reflect consolidation or residual pleural fluid. Mild interstitial congestion on the right is probably unchanged allowing for differences in exposure technique. Central venous catheter and tunneled dialysis catheter, left shoulder prosthesis remain. Impression: Unchanged, over one day, findings as above.
[2018-09-18 12:00] VITALS: BP 143/71
--- NOTE | 2018-09-18 12:39 | NUR ---
ST NOTE: BEDSIDE SWALLOW EVAL RECEIVED BEDSIDE SWALLOW EVAL ORDER CHART REVIEWED PRIOR THE EVALUATION REFERRED BY PRIMARY PHYSICIAN, DR. MARR. PT IS A 77-YEAR-OLD MALE WHO WAS ADMITTED DUE TO HEMOPTYSIS. 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 PLOF: PT RESIDES CUSTODIAL HOME. PER PT, PT WAS ON MECH SOFT(CHOPPED) WITH NECTAR THICK LIQUIDS. PER PT'S POLST: DNR, SELECTIVE TREATMENT AND NO ARTIFICIAL MEANS OF NUTRITION, INCLUDING FEEDING TUBES. PER PT AND PT'S BROTHER, PT WAS ADMITTED TO [facility] FROM [facility] DUE TO PT WAS CONFUSED, AND FOUND OUT THAT PT HAD A SUBACUTE R CEBTRUM SEMIOVALE INFARCT. PER PT, MODIFIED BARIUM SWALLOW STUDY WAS DONE AT THAT TIME AND DIET WAS RECOMMENDED MOIST PUREE WITH NECTAR THICK LIQUIDS. CURRENT STATUS: PT SEEN AT BEDSIDE IN AM. ALERT, COOPERATIVE, FOLLOWS DIRECTIONS. PT WITH NC(4L), OXYGEN LEVEL: 88-95, PT'S BROTHER WAS AT BEDSIDE. GIVEN PO TRIALS: THIN(TSP), NECTAR THICK(CUP-SELF), PUREE(TSP) AND SOFT CROISSANT, CRACKER X 1 BITE INITIAL IMPRESSION: PT HAS UPPER DENTURE MIN TO MILD R-SIDED FACIAL WEAKNESS, SLOW BUT FUNCTIONAL ORAL TRANSIT TIME, FAIR LARYNGEAL ELEVATION, NO OVERT S/S OF ASPIRATION. DUE TO PT HAS RESPIRATORY DISTRESS, H/O CVA, PT HAS HIGH RISK FOR ASPIRATION. RECOMMENDATIONS: 1. FOR QUALITY OF LIFE, CONTINUE ORAL DIET PT DISLIKES FINELY CHOPPED FOOD AND WOULD LIKE TO HAVE SOLID FOOD. CHANGED DIET TO RENAL MECH SOFT(CHOPPED) WITH NECTAR THICK LIQUIDS DIET 2. STRICT ASPIRATION/REFLUX PRECAUTIONS WITH SUPERVISION. 3. HOLD OFF MODIFIED BARIUM SWALLOW STUDY FOR NOW. 4. SKILLED ST SERVICE TO FOLLOW UP. D/W PT, PT'S FAMILY AND [facility]. POSTED ASPIRATION/REFLUX PRECAUTIONS SIGN.
--- NOTE | 2018-09-18 13:09 | Pulmonology Progress Note ---
Assessment/Plan Assessment/Plan 1. Hemoptysis, due to pulm edema 2. End-stage renal disease. On dialysis. 3. Cervical osteomyelitis. 4. Recent stroke. 5. Renal mass. 6. Penicillin allergy. 7. 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 8. Peripheral artery disease. 9. Renal mass. 10. Clostridium difficile colitis. 11. CHF R lung looks better, L better after tap thoracentesis transudate cont dialysis daily disc w Dr Marcum, RN Subjective Respiratory: Reports: shortness of breath; Denies: hemoptysis Allergies: Coded Allergies: PENICILLINS (Unverified Allergy, Unknown, 09/12/18) Objective Last 24 Hour Vital Signs Date Time Temp Pulse Resp B/P (MAP) Pulse Ox O2 Delivery O2 Flow Rate FiO2 09/18/18 12:00 97.7 70 21 143/71 (95) 100 09/18/18 09:00 140/74 09/18/18 08:00 78 09/18/18 08:00 Bi-pap 100.0 09/18/18 08:00 96.8 84 22 140/74 (96) 95 09/18/18 04:16 Bi-pap 100.0 09/18/18 04:00 97.9 75 16 135/72 (93) 100 09/18/18 04:00 75 09/18/18 00:00 Bi-pap 100.0 09/18/18 00:00 98.0 75 19 142/66 (91) 100 09/18/18 00:00 80 09/17/18 20:47 72 25 99 Facial 80 09/17/18 20:00 97.4 98 19 97/54 (68) 100 09/17/18 20:00 91 09/17/18 20:00 Bi-pap 100.0 09/17/18 19:14 98 22 97 Bi-Pap 80 09/17/18 19:14 84 22 97 Facial 100 09/17/18 19:14 97 Bi-Pap 09/17/18 16:51 74 24 98 Facial 100 09/17/18 16:00 83 09/17/18 16:00 96.6 99 20 101/59 (73) 100 09/17/18 16:00 Bi-pap 100.0 09/17/18 15:15 89 22 96 Facial 30 Intake and Output 09/17/18 09/18/18 19:00 07:00 Intake Total 400 ml 625 ml Output Total 400 ml Balance 0 ml 625 ml Intake Oral 300 ml 570 ml IV Total 100 ml 55 ml Other 400 ml # Bowel Movements 2 General Appearance: no acute distress Respiratory/Chest: decreased breath sounds Cardiovascular: normal rate Abdomen: other - ascites Microbiology Date/Time Source Procedure Growth Status 09/17/18 14:20 Body Fluid Lt Lung (Pleura) Gram Stain Pending Resulted 09/17/18 14:20 Body Fluid Lt Lung (Pleura) Body Fluid Culture - Preliminary NO GROWTH Resulted Laboratory Tests 09/17/18 14:20: Body Fluid Source Thoracentesis, Body Fluid Volume 24 ml, Body Fluid Appearance Yellow/clear, Body Fluid pH 8.0, Body Fluid RBC 189, Body Fluid Total Nucleated Cells 127, Body Fluid Polynuclear WBCs (%) 24, Body Fluid Mononuclear WBCs (%) 75, Body Fluid Mesothelial Cells (%) 1, Body Fluid Glucose 107, Body Fluid Total Protein 2.1, Body Fluid Albumin 1.1, Body Fluid Lactate Dehydrogenase 107 , Body Fluid Amylase 12 09/18/18 03:10: White Blood Count 9.8, Red Blood Count 2.28L, Hemoglobin 8.0L, Hematocrit 24.3L , Mean Corpuscular Volume 106H, Mean Corpuscular Hemoglobin 35.2H, Mean Corpuscular Hemoglobin Concent 33.1, Red Cell Distribution Width 18.0H, Platelet Count 239, Mean Platelet Volume 6.6, Neutrophils (%) (Auto) 81.9H, Lymphocytes (%) (Auto) 8.5L, Monocytes (%) (Auto) 6.8, Eosinophils (%) (Auto) 1.3, Basophils (%) (Auto) 1.4, Sodium Level 137, Potassium Level 3.9, Chloride Level 101, Carbon Dioxide Level 26, Anion Gap 10, Blood Urea Nitrogen 37H, Creatinine 3.7H, Estimat Glomerular Filtration Rate , Glucose Level 92, Calcium Level 7.5L, Magnesium Level 1.8, Total Bilirubin 0.7, Aspartate Amino Transf ( AST/SGOT) 26, Alanine Aminotransferase (ALT/SGPT) 10L, Alkaline Phosphatase 102 , Pro-B-Type Natriuretic Peptide 22888Q, Total Protein 5.1L, Albumin 1.4L, Globulin 3.7, Albumin/Globulin Ratio 0.4L Current Medications Medications (Trade) Dose Ordered Sig/[place] Route PRN Reason Start Time Stop Time Status Last Admin Dose Admin Acetaminophen (Tylenol) 650 mg Q6H PRN ORAL Mild Pain/Temp > 100.5 09/12/18 11:30 10/12/18 11:29 Acetaminophen/ Hydrocodone Bitart (Rumely 5/325) 1 tab Q4H PRN ORAL Moderate Pain (Pain Scale 4-6) 09/13/18 14:15 09/20/18 14:14 09/17/18 14:26 Cefepime HCl 1 gm/ Dextrose 55 ml @ 110 mls/hr Q24H IVPB 09/15/18 04:00 09/22/18 03:59 09/18/18 03:10 Chlorhexidine Gluconate (Mira-Hex 2%) 1 applic DAILY@2000 TOPIC 09/13/18 20:00 10/13/18 19:59 09/17/18 21:25 Epoetin Rudolph (Epoetin Rudolph(ESRD on dialysis)) 2,000 unit MON-MON-MON SUBQ 09/14/18 21:00 10/14/18 20:59 09/17/18 21:25 Epoetin Rudolph (Epoetin Rudolph(ESRD on dialysis)) 3,000 unit MON- SUBQ 09/14/18 21:00 10/14/18 20:59 09/17/18 21:25 Gabapentin (Neurontin) 100 mg DAILY ORAL 09/14/18 09:00 10/14/18 08:59 09/18/18 09:24 Guaifenesin (Robitussin) 100 mg Q4H PRN ORAL For Cough 09/12/18 13:00 10/12/18 12:59 Levothyroxine Sodium (Synthroid) 150 mcg Q24H ORAL 09/13/18 06:30 10/13/18 06:29 09/18/18 06:13 Losartan Potassium (Cozaar) 100 mg DAILY ORAL 09/15/18 09:00 10/15/18 08:59 09/17/18 10:43 Methocarbamol (Robaxin) 500 mg QIDPRN PRN ORAL MUSCLE PAIN 09/12/18 12:30 10/12/18 12:29 09/16/18 00:43 Metronidazole (Flagyl) 500 mg Q8HR ORAL 09/18/18 14:00 09/20/18 15:00 UNV Pantoprazole (Protonix) 40 mg DAILY ORAL 09/13/18 09:00 10/13/18 08:59 09/18/18 09:24 Pravastatin Sodium (Pravachol) 40 mg BEDTIME ORAL 09/12/18 21:00 10/12/18 20:59 09/17/18 21:25 Vancomycin HCl (Vanco rx to dose) 1 ea DAILY PRN MISC Per rx protocol 09/12/18 18:45 10/12/18 18:44 Vitamin B Complex/ Vit C/Folic Acid (Nephrovite) 1 tab DAILY ORAL 09/13/18 09:00 10/13/18 08:59 09/18/18 09:24 Zinc Sulfate (Zinc Sulfate) 220 mg DAILY ORAL 09/13/18 09:00 10/13/18 08:59 09/18/18 09:23 Zolpidem Tartrate (Ambien) 5 mg BEDTIME PRN ORAL Insomnia 09/12/18 12:30 09/19/18 12:29 09/16/18 23:10 Curtis Adams MD Sep 18, 2018 13:09
--- NOTE | 2018-09-18 13:20 | Infectious Diseases Prog Note ---
Assessment/Plan Assessment/Plan ASSESSMENT AND PLAN: 1. possible sepsis, leukocytosis, ? TB pna, ? HCAP, hx endocarditis and cervical osteomyelitis, effusion - continue vancomycin, cefepime and flagyl - day # 7 - monitor labs and chest x-ray, sputum culture with yeast which is likely colonizer - see below for recs for hx endocarditis and cervical osteomyelitis - leukocytosis improved - s/p thoracentesis - culture negative 2. Rule out TB pneumonia - afb smear neg x 3, t-spot negative, isolation discontinued 3. History of cervical osteomyelitis - continue abx, patient to f/u with primary treatment team once discharged 4. History of endocarditis - hx enterococcus bacteremia and endocarditis per [facility] records. Patient was being treated with ? zosyn until 10/01/18. Patient to follow with primary treatment team once discharged. (Note enterococcus was sensitive to ampicillin/pcn and vancomycin.) records from [facility]. Check echo and again sedimentation rate and check surveillance blood cultures. 5. The patient is on vancomycin and cefepime to have coverage for cervical osteomyelitis and endocarditis, but we will have to see what the pathogens were in the records. 6. Anemia. 7. End-stage renal disease, on hemodialysis. 8. History of fracture of the right femur. 9. History of hypertension. Blood pressure treatment per Dr. Adams. 10. Weakness. 11. Gastroesophageal reflux disease. 12. Hyperlipidemia. 13. Hypothyroidism. 14. History of cataracts and benign neoplasm of the parathyroid. 15. Allergic to penicillin tolerates cephalosporins. 16. Social history is negative. 17. Family history is noncontributory. 18. MAR was noted. 19. Case was discussed with RN. 20. Continue treatment per primary consultants. 21. hx c.diff. in past but no diarrhea currently Subjective Constitutional: Reports: fatigue, other - less sob; Denies: fever HEENT: Reports: congestion - less Respiratory: Reports: shortness of breath - less Cardiovascular: Denies: chest pain Gastrointestinal/Abdominal: Denies: nausea, vomiting, diarrhea Genitourinary: Reports: other - no connors Neurologic: Denies: headache Psychiatric: Denies: depression Skin: Denies: rash Hematologic: Denies: bleeding Musculoskeletal: Denies: pain Allergies: Coded Allergies: PENICILLINS (Unverified Allergy, Unknown, 09/12/18) Objective Vital Signs Last 24 Hour Vital Signs Date Time Temp Pulse Resp B/P (MAP) Pulse Ox O2 Delivery O2 Flow Rate FiO2 09/18/18 12:00 97.7 70 21 143/71 (95) 100 09/18/18 09:00 140/74 09/18/18 08:00 78 09/18/18 08:00 Bi-pap 100.0 09/18/18 08:00 96.8 84 22 140/74 (96) 95 09/18/18 04:16 Bi-pap 100.0 09/18/18 04:00 97.9 75 16 135/72 (93) 100 09/18/18 04:00 75 09/18/18 00:00 Bi-pap 100.0 09/18/18 00:00 98.0 75 19 142/66 (91) 100 09/18/18 00:00 80 09/17/18 20:47 72 25 99 Facial 80 09/17/18 20:00 97.4 98 19 97/54 (68) 100 09/17/18 20:00 91 09/17/18 20:00 Bi-pap 100.0 09/17/18 19:14 98 22 97 Bi-Pap 80 09/17/18 19:14 84 22 97 Facial 100 09/17/18 19:14 97 Bi-Pap 09/17/18 16:51 74 24 98 Facial 100 09/17/18 16:00 83 09/17/18 16:00 96.6 99 20 101/59 (73) 100 09/17/18 16:00 Bi-pap 100.0 09/17/18 15:15 89 22 96 Facial 30 Height (Feet): 5 Height (Inches): 4.00 Weight (Pounds): 134 General Appearance: no acute distress HEENT: normocephalic, atraumatic, anicteric Respiratory/Chest: no accessory muscle use, decreased breath sounds, crackles/ rales, rhonchi - bilaterally Cardiovascular: normal rate, regular rhythm, no gallop/murmur, no JVD Abdomen: normal bowel sounds, soft, non tender, no organomegaly, non distended Genitourinary: other - no connors, + hd Extremities: no cyanosis Skin: no rash Neurologic/Psychiatric: facilities administrator II-XII grossly normal, alert, responsive Lymphatic: no neck adenopathy Musculoskeletal: no effusion Objective CT chest - Impression: Suboptimal opacification of the pulmonary arteries; no gross large vessel pulmonary emboli demonstrated Negative for thoracic aortic aneurysm or dissection Four-chamber cardiomegaly Interstitial septal thickening, likely secondary to pulmonary edema. Groundglass and denser airspace opacities diffusely bilaterally, likely on the basis of pulmonary edema but other etiologies possible Large left and small right pleural effusions. That on the left is possibly loculated, particularly in the upper hemithorax Ascites Anasarca, with, in addition to the above findings, diffuse edema of the subcutaneous, mediastinal, and abdominal fat Compressive atelectasis of much of the left lower lobe and portions of the right lower lobe due to the pleural fluid Evidence of COPD changes Mediastinal lymphadenopathy, may reactive or neoplastic 2 cm enhancing left renal mass, worrisome for renal neoplasm. Consider dedicated renal CT for better characterization Partial eggshell calcification within the renal sinus, could represent a partially calcified renal artery aneurysm versus a postinflammatory lesion Hepatic surface nodularity, likely cirrhosis Scattered areas of arterial hyperenhancement in the liver, likely related to cirrhotic change or transient areas of arterial enhancement T12 compression fracture with posterior retropulsion. 09/13/18 - chest x-ray - Procedure: XRAY Chest 1v Indication: Shortness of breath Technique: One view of the chest Comparison: 09/12/2018 Findings: Evidence of slightly better aeration in the right perihilar region, with decreased consolidation and atelectasis. Generalized bilateral diffuse interstitial and airspace disease may be slightly improved since prior study overall, although still persistent and extensive. Bilateral left greater than right pleural effusions persist, may be slightly improved on the left. Left jugular tunneled dialysis catheter remains. Left jugular central venous catheter remains with its tip projected retrograde into the azygos vein. The heart is upper limits normal in size. The edge of a left shoulder prosthesis is noted Impression: Suggestion of slightly improved but still persists and extensive bilateral parenchymal disease. Possible slight improvement of still large left pleural effusion Chest x-ray - 09/18/18 - Procedure: XRAY Chest 1v Indication: Shortness of breath Technique: One view of the chest Comparison: 09/17/2018 Findings: Again demonstrated are interstitial airspace opacities throughout the left lung, appearing unchanged. Apparent pleural thickening in the left upper hemithorax likely reflects suspected loculated pleural fluid seen on recent CT scan. Opacity at the left lung base may reflect consolidation or residual pleural fluid. Mild interstitial congestion on the right is probably unchanged allowing for differences in exposure technique. Central venous catheter and tunneled dialysis catheter, left shoulder prosthesis remain. Impression: Unchanged, over one day, findings as above. Microbiology Date/Time Source Procedure Growth Status 09/12/18 02:05 Blood Blood Culture - Final NO GROWTH AFTER 5 DAYS Complete 09/17/18 14:20 Body Fluid Lt Lung (Pleura) Gram Stain Pending Resulted 09/17/18 14:20 Body Fluid Lt Lung (Pleura) Body Fluid Culture - Preliminary NO GROWTH Resulted 09/15/18 06:50 Sputum AFB Specimen Processing Tissue - Final Resulted 09/15/18 06:50 Sputum Acid Fast Bacilli Smear - Final Resulted 09/15/18 06:50 Sputum Acid Fast Bacilli Culture Pending Resulted 09/12/18 04:00 Rectum VRE Culture - Final NO VANCOMYCIN RESISTANT ENTEROCOCCUS ... Complete Microbiology Date/Time Source Procedure Growth Status 09/17/18 14:20 Body Fluid Lt Lung (Pleura) Gram Stain Pending Resulted 09/17/18 14:20 Body Fluid Lt Lung (Pleura) Body Fluid Culture - Preliminary NO GROWTH Resulted Laboratory Tests Test 09/17/18 14:20 09/18/18 03:10 Body Fluid Source Thoracentesis Body Fluid Volume 24 ml mL Body Fluid Appearance Yellow/clear (Clear) Body Fluid pH 8.0 Body Fluid RBC 189 /CUMM Body Fluid Total Nucleated Cells 127 /CUMM Body Fluid Polynuclear WBCs (%) 24 % Body Fluid Mononuclear WBCs (%) 75 % Body Fluid Mesothelial Cells (%) 1 % Body Fluid Glucose 107 mg/dL (.) Body Fluid Total Protein 2.1 g/dL (.) Body Fluid Albumin 1.1 g/dL (.) Body Fluid Lactate Dehydrogenase 107 IU/L (.) Body Fluid Amylase 12 U/L (.) White Blood Count 9.8 K/UL (4.8-10.8) Red Blood Count 2.28 M/UL (4.20-5.40) L Hemoglobin 8.0 G/DL (12.0-16.0) L Hematocrit 24.3 % (37.0-47.0) L Mean Corpuscular Volume 106 FL (80-99) H Mean Corpuscular Hemoglobin 35.2 PG (27.0-31.0) H Mean Corpuscular Hemoglobin Concent 33.1 G/DL (32.0-36.0) Red Cell Distribution Width 18.0 % (11.6-14.8) H Platelet Count 239 K/UL (150-450) Mean Platelet Volume 6.6 FL (6.5-10.1) Neutrophils (%) (Auto) 81.9 % (45.0-75.0) H Lymphocytes (%) (Auto) 8.5 % (20.0-45.0) L Monocytes (%) (Auto) 6.8 % (1.0-10.0) Eosinophils (%) (Auto) 1.3 % (0.0-3.0) Basophils (%) (Auto) 1.4 % (0.0-2.0) Sodium Level 137 MMOL/L (136-145) Potassium Level 3.9 MMOL/L (3.5-5.1) Chloride Level 101 MMOL/L (98-107) Carbon Dioxide Level 26 MMOL/L (21-32) Anion Gap 10 mmol/L (5-15) Blood Urea Nitrogen 37 mg/dL (7-18) H Creatinine 3.7 MG/DL (0.55-1.30) H Estimat Glomerular Filtration Rate mL/min (>60) Glucose Level 92 MG/DL (74-106) Calcium Level 7.5 MG/DL (8.5-10.1) L Magnesium Level 1.8 MG/DL (1.8-2.4) Total Bilirubin 0.7 MG/DL (0.2-1.0) Aspartate Amino Transf (AST/SGOT) 26 U/L (15-37) Alanine Aminotransferase (ALT/SGPT) 10 U/L (12-78) L Alkaline Phosphatase 102 U/L (46-116) Pro-B-Type Natriuretic Peptide 77671 pg/mL (0-125) H Total Protein 5.1 G/DL (6.4-8.2) L Albumin 1.4 G/DL (3.4-5.0) L Globulin 3.7 g/dL Albumin/Globulin Ratio 0.4 (1.0-2.7) L Current Medications Medications (Trade) Dose Ordered Sig/[place] Route PRN Reason Start Time Stop Time Status Last Admin Dose Admin Acetaminophen (Tylenol) 650 mg Q6H PRN ORAL Mild Pain/Temp > 100.5 6/12/19 11:30 10/12/18 11:29 Acetaminophen/ Hydrocodone Bitart ([place]ora 5/325) 1 tab Q4H PRN ORAL Moderate Pain (Pain Scale 4-6) 09/13/18 14:15 09/20/18 14:14 09/17/18 14:26 Cefepime HCl 1 gm/ Dextrose 55 ml @ 110 mls/hr Q24H IVPB 09/15/18 04:00 09/22/18 03:59 09/18/18 03:10 Chlorhexidine Gluconate (Mira-Hex 2%) 1 applic DAILY@2000 TOPIC 09/13/18 20:00 10/13/18 19:59 09/17/18 21:25 Epoetin Rudolph (Epoetin Rudolph(ESRD on dialysis)) 2,000 unit MON-MON-MON SUBQ 09/14/18 21:00 10/14/18 20:59 09/17/18 21:25 Epoetin Rudolph (Epoetin Rudolph(ESRD on dialysis)) 3,000 unit SUBQ 09/14/18 21:00 10/14/18 20:59 09/17/18 21:25 Gabapentin (Neurontin) 100 mg DAILY ORAL 09/14/18 09:00 10/14/18 08:59 09/18/18 09:24 Guaifenesin (Robitussin) 100 mg Q4H PRN ORAL For Cough 09/12/18 13:00 10/12/18 12:59 Levothyroxine Sodium (Synthroid) 150 mcg Q24H ORAL 09/13/18 06:30 10/13/18 06:29 09/18/18 06:13 Losartan Potassium (Cozaar) 100 mg DAILY ORAL 09/15/18 09:00 10/15/18 08:59 09/17/18 10:43 Methocarbamol (Robaxin) 500 mg QIDPRN PRN ORAL MUSCLE PAIN 09/12/18 12:30 10/12/18 12:29 09/16/18 00:43 Metronidazole (Flagyl) 500 mg Q8HR ORAL 09/18/18 14:00 09/20/18 15:00 UNV Pantoprazole (Protonix) 40 mg DAILY ORAL 09/13/18 09:00 10/13/18 08:59 09/18/18 09:24 Pravastatin Sodium (Pravachol) 40 mg BEDTIME ORAL 09/12/18 21:00 10/12/18 20:59 09/17/18 21:25 Vancomycin HCl (Vanco rx to dose) 1 ea DAILY PRN MISC Per rx protocol 09/12/18 18:45 10/12/18 18:44 Vitamin B Complex/ Vit C/Folic Acid (Nephrovite) 1 tab DAILY ORAL 09/13/18 09:00 10/13/18 08:59 09/18/18 09:24 Zinc Sulfate (Zinc Sulfate) 220 mg DAILY ORAL 09/13/18 09:00 10/13/18 08:59 09/18/18 09:23 Zolpidem Tartrate (Ambien) 5 mg BEDTIME PRN ORAL Insomnia 09/12/18 12:30 09/19/18 12:29 09/16/18 23:10 Leonor Thakkar MD Sep 18, 2018 13:20
--- NOTE | 2018-09-18 13:53 | NUR ---
CASE MANAGEMENT:REVIEW 09/18/2018 SI: HEMOPTYSIS. T 97.7 HR 70 RR 82 B/P 143/71 SATS 100% ON BIPAP FIO2 100% BUN 37 CR 3.7 CA 7.5 ALT 10 BNP 45065 IS: PRAVACHOL PO QHS PROTONIX PO QD GABAPENTIN PO QD COZAAR PO QD SYNTHROID PO Q24H CEFEPIME IV Q24H FLAGYL PO Q8H DON STATUS DCP: PATIENT TO BE DISCHARGED TO SNF ONCE MEDICALLY CLEARED. PLAN OF CARE: CXR HD
[2018-09-18] MEDS ORDERED: metroNIDAZOLE 500mg tab ORAL SCH ×2 (14:00)
--- NOTE | 2018-09-18 14:13 | NUR ---
DISCHARGE/TRANSFER: NOTE NO BEDS AVAILABLE AT THIS TIME PER ZAC AT THE [facility]
--- NOTE | 2018-09-18 14:53 | NUR ---
NURSE NOTES: REC,D BED SIDE REPORT FROM TERESA TRUCK HOP OF NOC SHIFT. REC,D PT IN BED AWAKE AND ALERT ORIENTED X3 .PT USING VENTY -MASK SAT 95%.PT DENIES CP OR ANY DISCOMFORT AT THIS TIME.PT IS DNR STATUS . FULL BOY ASSESSMENT DONE. PT REPOSITIONED IN BED AND MADE COMFORTABLE POSSIBLE. NO ACUTE DISTRESS NOTED AT THIS TIME . WILL CONT TO MONITOR.
[2018-09-18 16:00] VITALS: BP 112/62
[2018-09-18] MEDS: HYDROcodone/Acetamin 5/325 tab ORAL PRN (16:25)
--- NOTE | 2018-09-18 19:18 | Nephrology Progress Note ---
Assessment/Plan Problem List: (1) CHF (congestive heart failure), NYHA class II (2) Hemoptysis, unspecified (3) Osteomyelitis of cervical spine (4) ESRD (end stage renal disease) on dialysis (5) Bilateral pleural effusion (6) Malnutrition Plan dialysis 09/12 13 14 for fluid overload, stop amlodipine to mitigate hypotension , pulm care, seems improved after fluid removal, continuing rx for osteo and possible pneumonia, possible thoracentesis, HD 09/18 -2500 ml, continue trying to remove excess fluid Subjective Constitutional: Reports: weakness HEENT: Reports: no symptoms Genitourinary: Reports: no symptoms Neurologic/Psychiatric: Reports: no symptoms Subjective off bipap Objective Objective Last 24 Hour Vital Signs Date Time Temp Pulse Resp B/P (MAP) Pulse Ox O2 Delivery O2 Flow Rate FiO2 09/18/18 16:55 97.7 09/18/18 16:00 91 09/18/18 16:00 Bi-pap 100.0 09/18/18 12:00 82 09/18/18 12:00 97.7 70 21 143/71 (95) 100 09/18/18 12:00 Bi-pap 100.0 09/18/18 09:00 140/74 09/18/18 08:00 78 09/18/18 08:00 Bi-pap 100.0 09/18/18 08:00 96.8 84 22 140/74 (96) 95 09/18/18 07:00 96 24 92 Nasal Cannula 4.0 36 09/18/18 07:00 94 Nasal Cannula 4.0 36 09/18/18 04:16 Bi-pap 100.0 09/18/18 04:00 97.9 75 16 135/72 (93) 100 09/18/18 04:00 75 09/18/18 00:00 Bi-pap 100.0 09/18/18 00:00 98.0 75 19 142/66 (91) 100 09/18/18 00:00 80 09/17/18 20:47 72 25 99 Facial 80 09/17/18 20:00 97.4 98 19 97/54 (68) 100 09/17/18 20:00 91 09/17/18 20:00 Bi-pap 100.0 Intake and Output 09/17/18 09/18/18 19:00 07:00 Intake Total 400 ml 625 ml Output Total 400 ml Balance 0 ml 625 ml Intake Oral 300 ml 570 ml IV Total 100 ml 55 ml Other 400 ml # Bowel Movements 2 Laboratory Tests 09/18/18 03:10: White Blood Count 9.8, Red Blood Count 2.28L, Hemoglobin 8.0L, Hematocrit 24.3L , Mean Corpuscular Volume 106H, Mean Corpuscular Hemoglobin 35.2H, Mean Corpuscular Hemoglobin Concent 33.1, Red Cell Distribution Width 18.0H, Platelet Count 239, Mean Platelet Volume 6.6, Neutrophils (%) (Auto) 81.9H, Lymphocytes (%) (Auto) 8.5L, Monocytes (%) (Auto) 6.8, Eosinophils (%) (Auto) 1.3, Basophils (%) (Auto) 1.4, Sodium Level 137, Potassium Level 3.9, Chloride Level 101, Carbon Dioxide Level 26, Anion Gap 10, Blood Urea Nitrogen 37H, Creatinine 3.7H, Estimat Glomerular Filtration Rate , Glucose Level 92, Calcium Level 7.5L, Magnesium Level 1.8, Total Bilirubin 0.7, Aspartate Amino Transf ( AST/SGOT) 26, Alanine Aminotransferase (ALT/SGPT) 10L, Alkaline Phosphatase 102 , Pro-B-Type Natriuretic Peptide 14210F, Total Protein 5.1L, Albumin 1.4L, Globulin 3.7, Albumin/Globulin Ratio 0.4L Height (Feet): 5 Height (Inches): 4.00 Weight (Pounds): 134 General Appearance: no apparent distress, alert, thin EENT: normal ENT inspection Neck: normal alignment Cardiovascular: normal rate, regular rhythm Respiratory/Chest: rhonchi - bilaterally Abdomen: non tender, soft Extremities: trace edema 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
--- NOTE | 2018-09-18 19:30 | NUR ---
NURSE NOTES: Received patient from SUNG Leon. patient is resting in bed, responsive to verbal commands. denies pain at this time. patient is on 4 L O2 via NC. no s/sx of respiratory distress noted at this time. Left subclavian permacath intact and asymptomatic. Left subclavian central line intact and patent, TKO. bed in lowest position and locked, siderails up X2, call light within reach. will continue to monitor.
--- NOTE | 2018-09-18 19:35 | NUR ---
HAND-OFF: Report given to .OZZIE ALMARAZ.
--- NOTE | 2018-09-18 19:55 | NUR ---
NURSE NOTES: Called [facility] to schedule HD on 09/19/18 as per MD order. spoke with Hui.
[2018-09-18 20:00] VITALS: BP 136/65
[2018-09-18] MEDS: Dyna-Hex 2% Top Sol 2oz TOPIC SCH (20:19)
[2018-09-19] VITALS: BP 127/62
--- NOTE | 2018-09-19 02:30 | Progress Note ---
DATE: 09/18/2018 CARDIOLOGY PROGRESS NOTE SUBJECTIVE: The patient is status post thoracentesis. Fluid has ____. OBJECTIVE: VITAL SIGNS: Blood pressure 143/71, pulse 70, and respiratory rate 21. LUNGS: Diminished breath sounds, better at this time. HEART: Regular rhythm and rate. Normal S1 and S2 with a 2/6 holosystolic apical murmur. ABDOMEN: Soft. EXTREMITIES: Trace edema. IMPRESSION: 1. Acute on chronic diastolic congestive heart failure. 2. Pleural effusion. 3. Recent endocarditis due to aortic and mitral valve. 4. End-stage renal disease, on hemodialysis. 5. Cerebrovascular disease with recent cerebrovascular accident. PLAN: 1. Dialysis with daily ultrafiltration. 2. Reassess for additional thoracentesis with imaging studies. 3. Continue to monitor blood culture results. 4. Maximize anti-failure and antihypertensive regimen. 5. Remains high risk. Edward Mendez M.D. DR: GUERLINE JOB#: [id number] CC:
[2018-09-19] MEDS: HYDROcodone/Acetamin 5/325 tab ORAL PRN ×3 (03:00→20:26)
[2018-09-19] MEDS: Cefepime 1gm in D5W 55ml IVPB SCH (03:32)
[2018-09-19 04:00] VITALS: BP 113/62
[2018-09-19 05:50] LABS: BASOPHILS % (AUTO) 1.2 % (0.0-2.0); EOSINOPHILS % (AUTO) 2.8 % (0.0-3.0); HEMATOCRIT 24.8 % (37.0-47.0); HEMOGLOBIN 8.4 G/DL (12.0-16.0); LYMPHOCYTES % (AUTO) 11.5 % (20.0-45.0); MEAN CORPUSCULAR VOLUME 107 FL (80-99); MONOCYTES % (AUTO) 9.5 % (1.0-10.0); NEUTROPHILS % (AUTO) 74.9 % (45.0-75.0); PLATELET COUNT 261 K/UL (150-450); RED BLOOD COUNT 2.33 M/UL (4.20-5.40); RED CELL DISTRIBUTION WIDTH 18.7 % (11.6-14.8); WHITE BLOOD COUNT 10.4 K/UL (4.8-10.8)
[2018-09-19] MEDS: metroNIDAZOLE 500mg tab ORAL SCH ×3 (06:16→21:16)
[2018-09-19 06:28] LABS: ALANINE AMINOTRANSFERASE 10 U/L (12-78); ALBUMIN 1.6 G/DL (3.4-5.0); ALBUMIN/GLOBULIN RATIO 0.4 (1.0-2.7); ALKALINE PHOSPHATASE 139 U/L (46-116); ANION GAP 8 mmol/L (5-15); ASPARTATE AMINO TRANSFERASE 19 U/L (15-37); BILIRUBIN,TOTAL 0.6 MG/DL (0.2-1.0); BLOOD UREA NITROGEN 38 mg/dL (7-18); CARBON DIOXIDE 30 MMOL/L (21-32); CHLORIDE 99 MMOL/L (98-107); CREATININE 3.5 MG/DL (0.55-1.30); POTASSIUM 4.2 MMOL/L (3.5-5.1); SODIUM 137 MMOL/L (136-145)
--- NOTE | 2018-09-19 07:30 | NUR ---
HAND-OFF: Report given to SUNG Quintanilla. patient is in stable condition.
--- NOTE | 2018-09-19 07:34 | NUR ---
NURSE NOTES: received patient report from tati christy. patient is on bed asleep. not in acute distress. bed is low and locked for safety. no arrythmias reported during the night. on 4 li nc. comfortable. will continue plan of care.
[2018-09-19 08:00] VITALS: BP 135/58
[2018-09-19] MEDS: Zinc Sulfate 220mg cap ORAL SCH (08:23)
[2018-09-19] MEDS: Losartan 50mg tab ORAL SCH (08:23)
[2018-09-19] MEDS: Nephrovite tab (Rena-Vite) ORAL SCH (08:23)
--- NOTE | 2018-09-19 11:54 | NUR ---
BIG MACHINE CONSULTANT NOTES RECEIVED CALL FROM OWEN FROM [facility] TRANSFER [place], UNABLE TO ACCEPT PT AT THIS TIME. [facility] IS AT CAPACITY. PT AND NURSE MADE AWARE.
[2018-09-19 12:00] VITALS: BP 139/78
--- NOTE | 2018-09-19 14:52 | NUR ---
RD ASSESSMENT & RECOMMENDATIONS SEE CARE ACTIVITY FOR COMPLETE ASSESSMENT DAILY ESTIMATED NEEDS: Needs based on ESRD + HD, wounds/ 57kg 30-35 kcals/kg 6631-9908 total kcals 1.25-1.8 g protein/kg 71-102 g total protein 20-22 mL/kg 0360-4078 total fluid mLs NUTRITION DIAGNOSIS: * Increased kcal/prot intake needs R/T renal dysfunction, wound healing as evidenced by ESRD dx, on HD, admitted w/ full thickness wound @ lateral R tibia and multiple non-blanchable erythemas, refer to WC eval. * Swallowing difficulty R/T dysphagia, h/o CVA as evidenced by [employer] recommends mech soft chopped, NTL. CURRENT DIET:RENAL, mech soft chopped, NTL PO DIET RECOMMENDATIONS: RENAL/ texture per [employer] ADDITIONAL RECOMMENDATIONS: * Calibrated bedscale wt for accurate CBW (w/ added P200 mattress) * Nepro 1 tetra joel BID w/ variable PO (425kcal/19g prot per joel) * Wound healing: Continue Nephrovite x 1 : Add Isauro 1pkt BID as tolerated * Monitor renal fxn and lytes .
--- NOTE | 2018-09-19 15:10 | NUR ---
SS note Chart reviewed; patient is from [facility] and pending bed available at [facility] for higher level of care. No SW needs identified at this time.
[2018-09-19 16:00] VITALS: BP 110/62
[2018-09-19] MEDS ORDERED: ZOFRAN4 M1 ORAL (17:25)
[2018-09-19] MEDS ORDERED: FLAGYL500 MG ORAL (17:25)
[2018-09-19] MEDS ORDERED: RETACRIT3000 UNIT/ SUBQ (17:25)
[2018-09-19] MEDS ORDERED: GABAPENTIN100 MG ORAL (17:25)
--- NOTE | 2018-09-19 17:31 | Pulmonology Progress Note ---
Assessment/Plan Assessment/Plan 1. Hemoptysis, due to pulm edema 2. End-stage renal disease. On dialysis. 3. Cervical osteomyelitis. 4. Recent stroke. 5. Renal mass. 6. Penicillin allergy. 7. 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 8. Peripheral artery disease. 9. Renal mass. 10. Clostridium difficile colitis. 11. CHF CXR stable better w daily HD/UF dc plan 1-2 d to home per patient, refused SNF disc w son, brother disc w Dr Marcum, RN RN will contact ID about abx Subjective Constitutional: Reports: fatigue Respiratory: Reports: hemoptysis; Denies: shortness of breath Gastrointestinal/Abdominal: Reports: nausea Allergies: Coded Allergies: PENICILLINS (Unverified Allergy, Unknown, 09/12/18) Objective Last 24 Hour Vital Signs Date Time Temp Pulse Resp B/P (MAP) Pulse Ox O2 Delivery O2 Flow Rate FiO2 09/19/18 16:00 80 09/19/18 16:00 98.1 96 28 110/62 (78) 96 09/19/18 12:00 97.5 82 20 139/78 (98) 100 09/19/18 11:41 74 09/19/18 08:00 97.7 73 18 135/58 (83) 100 09/19/18 08:00 Nasal Cannula 4.0 09/19/18 07:32 74 09/19/18 07:12 67 19 97 Nasal Cannula 3.0 32 09/19/18 07:12 97 Nasal Cannula 3.0 32 09/19/18 04:00 Nasal Cannula 4.0 09/19/18 04:00 68 09/19/18 04:00 97.5 65 24 113/62 (79) 100 09/19/18 00:00 90 09/19/18 00:00 Nasal Cannula 4.0 09/19/18 00:00 98.1 73 24 127/62 (83) 100 09/18/18 20:30 85 20 97 Nasal Cannula 4.0 32 09/18/18 20:30 97 Nasal Cannula 3.0 32 09/18/18 20:00 83 09/18/18 20:00 Nasal Cannula 4.0 09/18/18 20:00 98.3 83 24 136/65 (88) 96 Intake and Output 09/18/18 09/19/18 19:00 07:00 Intake Total 300 ml 295 ml Output Total 2500 ml Balance -2200 ml 295 ml Intake Oral 300 ml 240 ml IV Total 55 ml Output Hemodialysis UF 2500 ml # Bowel Movements 2 General Appearance: no acute distress, cachetic Respiratory/Chest: decreased breath sounds Cardiovascular: normal rate Abdomen: soft, non tender Microbiology Date/Time Source Procedure Growth Status 09/17/18 14:20 Body Fluid Lt Lung (Pleura) Gram Stain - Final Resulted 09/17/18 14:20 Body Fluid Lt Lung (Pleura) Body Fluid Culture - Preliminary NO GROWTH AFTER 24 HOURS Resulted Laboratory Tests 09/19/18 03:20: White Blood Count 10.4, Red Blood Count 2.33L, Hemoglobin 8.4L, Hematocrit 24.8L , Mean Corpuscular Volume 107H, Mean Corpuscular Hemoglobin 35.9H, Mean Corpuscular Hemoglobin Concent 33.7, Red Cell Distribution Width 18.7H, Platelet Count 261, Mean Platelet Volume 7.3, Neutrophils (%) (Auto) 74.9, Lymphocytes (%) (Auto) 11.5L, Monocytes (%) (Auto) 9.5, Eosinophils (%) (Auto) 2.8, Basophils (%) (Auto) 1.2, Sodium Level 137, Potassium Level 4.2, Chloride Level 99, Carbon Dioxide Level 30, Anion Gap 8, Blood Urea Nitrogen 38H, Creatinine 3.5H, Estimat Glomerular Filtration Rate , Glucose Level 88, Calcium Level 8.0L, Total Bilirubin 0.6, Aspartate Amino Transf (AST/SGOT) 19, Alanine Aminotransferase (ALT/SGPT) 10L, Alkaline Phosphatase 139H, Total Protein 5.6L, Albumin 1.6L, Globulin 4.0, Albumin/Globulin Ratio 0.4L Current Medications Medications (Trade) Dose Ordered Sig/[place] Route PRN Reason Start Time Stop Time Status Last Admin Dose Admin Acetaminophen (Tylenol) 650 mg Q6H PRN ORAL Mild Pain/Temp > 100.5 09/12/18 11:30 10/12/18 11:29 Acetaminophen/ Hydrocodone Bitart (Steen 5/325) 1 tab Q4H PRN ORAL Moderate Pain (Pain Scale 4-6) 09/13/18 14:15 09/20/18 14:14 09/19/18 14:03 Cefepime HCl 1 gm/ Dextrose 55 ml @ 110 mls/hr Q24H IVPB 09/15/18 04:00 09/22/18 03:59 09/19/18 03:32 Chlorhexidine Gluconate (Mira-Hex 2%) 1 applic DAILY@2000 TOPIC 09/13/18 20:00 10/13/18 19:59 09/18/18 20:19 Epoetin Rudolph (Epoetin Rudolph(ESRD on dialysis)) 2,000 unit MON-MON-MON SUBQ 09/14/18 21:00 10/14/18 20:59 09/17/18 21:25 Epoetin Rudolph (Epoetin Rudolph(ESRD on dialysis)) 3,000 unit SUBQ 09/14/18 21:00 10/14/18 20:59 09/17/18 21:25 Gabapentin (Neurontin) 100 mg DAILY ORAL 09/14/18 09:00 10/14/18 08:59 09/19/18 08:23 Guaifenesin (Robitussin) 100 mg Q4H PRN ORAL For Cough 09/12/18 13:00 10/12/18 12:59 Heparin Sodium (Porcine) (Heparin Sod 1000 units/ml 10ml) 500 unit ONCE PRN IV dialysis 09/19/18 19:30 09/19/18 23:59 Levothyroxine Sodium (Synthroid) 150 mcg Q24H ORAL 09/13/18 06:30 10/13/18 06:29 09/19/18 06:16 Losartan Potassium (Cozaar) 100 mg DAILY ORAL 09/15/18 09:00 10/15/18 08:59 09/17/18 10:43 Methocarbamol (Robaxin) 500 mg QIDPRN PRN ORAL MUSCLE PAIN 09/12/18 12:30 10/12/18 12:29 09/16/18 00:43 Metronidazole (Flagyl) 500 mg Q8HR ORAL 09/18/18 14:00 09/20/18 15:00 09/19/18 14:04 Ondansetron HCl (Zofran) 4 mg QIDPRN PRN ORAL Nausea & Vomiting 09/19/18 16:45 10/19/18 16:44 09/19/18 17:01 Pantoprazole (Protonix) 40 mg DAILY ORAL 09/13/18 09:00 10/13/18 08:59 09/19/18 08:23 Pravastatin Sodium (Pravachol) 40 mg BEDTIME ORAL 09/12/18 21:00 10/12/18 20:59 09/18/18 20:20 Sodium Chloride 1,000 ml @ 500 mls/hr Q2H PRN IVLG sbp<90 during hd 09/19/18 19:18 09/19/18 23:59 Vancomycin HCl (Vanco rx to dose) 1 ea DAILY PRN MISC Per rx protocol 09/12/18 18:45 10/12/18 18:44 Vitamin B Complex/ Vit C/Folic Acid (Nephrovite) 1 tab DAILY ORAL 09/13/18 09:00 10/13/18 08:59 09/19/18 08:23 Zinc Sulfate (Zinc Sulfate) 220 mg DAILY ORAL 09/13/18 09:00 10/13/18 08:59 09/19/18 08:23 Curtis Adams MD Sep 19, 2018 17:31
--- NOTE | 2018-09-19 17:54 | Nephrology Progress Note ---
Assessment/Plan Problem List: (1) CHF (congestive heart failure), NYHA class II (2) Hemoptysis, unspecified (3) Osteomyelitis of cervical spine (4) ESRD (end stage renal disease) on dialysis (5) Bilateral pleural effusion (6) Malnutrition Plan dialysis 09/12 13 14 for fluid overload, stop amlodipine to mitigate hypotension , pulm care, seems improved after fluid removal, continuing rx for osteo and possible pneumonia, possible thoracentesis, HD 09/19 -2500 ml, continue trying to remove excess fluid, HD 09/20 Subjective Constitutional: Reports: weakness HEENT: Reports: no symptoms Genitourinary: Reports: incontinence Neurologic/Psychiatric: Reports: no symptoms Subjective off bipap less dyspnea Objective Objective Last 24 Hour Vital Signs Date Time Temp Pulse Resp B/P (MAP) Pulse Ox O2 Delivery O2 Flow Rate FiO2 09/19/18 16:00 80 09/19/18 16:00 98.1 96 28 110/62 (78) 96 09/19/18 12:00 97.5 82 20 139/78 (98) 100 09/19/18 11:41 74 09/19/18 08:00 97.7 73 18 135/58 (83) 100 09/19/18 08:00 Nasal Cannula 4.0 09/19/18 07:32 74 09/19/18 07:12 67 19 97 Nasal Cannula 3.0 32 09/19/18 07:12 97 Nasal Cannula 3.0 32 09/19/18 04:00 Nasal Cannula 4.0 09/19/18 04:00 68 09/19/18 04:00 97.5 65 24 113/62 (79) 100 09/19/18 00:00 90 09/19/18 00:00 Nasal Cannula 4.0 09/19/18 00:00 98.1 73 24 127/62 (83) 100 09/18/18 20:30 85 20 97 Nasal Cannula 4.0 32 09/18/18 20:30 97 Nasal Cannula 3.0 32 09/18/18 20:00 83 09/18/18 20:00 Nasal Cannula 4.0 09/18/18 20:00 98.3 83 24 136/65 (88) 96 Intake and Output 09/18/18 09/19/18 19:00 07:00 Intake Total 300 ml 295 ml Output Total 2500 ml Balance -2200 ml 295 ml Intake Oral 300 ml 240 ml IV Total 55 ml Output Hemodialysis UF 2500 ml # Bowel Movements 2 Laboratory Tests 09/19/18 03:20: White Blood Count 10.4, Red Blood Count 2.33L, Hemoglobin 8.4L, Hematocrit 24.8L , Mean Corpuscular Volume 107H, Mean Corpuscular Hemoglobin 35.9H, Mean Corpuscular Hemoglobin Concent 33.7, Red Cell Distribution Width 18.7H, Platelet Count 261, Mean Platelet Volume 7.3, Neutrophils (%) (Auto) 74.9, Lymphocytes (%) (Auto) 11.5L, Monocytes (%) (Auto) 9.5, Eosinophils (%) (Auto) 2.8, Basophils (%) (Auto) 1.2, Sodium Level 137, Potassium Level 4.2, Chloride Level 99, Carbon Dioxide Level 30, Anion Gap 8, Blood Urea Nitrogen 38H, Creatinine 3.5H, Estimat Glomerular Filtration Rate , Glucose Level 88, Calcium Level 8.0L, Total Bilirubin 0.6, Aspartate Amino Transf (AST/SGOT) 19, Alanine Aminotransferase (ALT/SGPT) 10L, Alkaline Phosphatase 139H, Total Protein 5.6L, Albumin 1.6L, Globulin 4.0, Albumin/Globulin Ratio 0.4L Height (Feet): 5 Height (Inches): 4.00 Weight (Pounds): 145 General Appearance: alert, thin EENT: normal ENT inspection Neck: normal alignment Cardiovascular: normal rate, regular rhythm Respiratory/Chest: decreased breath sounds Abdomen: non tender, soft Extremities: other - no edema Neurologic: [employer] baseball [employer] II-XII grossly normal Dragan Marcum MD Sep 19, 2018 17:54
--- NOTE | 2018-09-19 19:10 | NUR ---
HAND-OFF: Report given to wilmer christy.
--- NOTE | 2018-09-19 19:24 | NUR ---
NURSE NOTES: per family member patient will be going back to [facility]. Dr mendoza is aware. discharge will be tomorrow 09/20 after dialysis, patient is going back to [facility]. properly endorsed.
[2018-09-19] MEDS ORDERED: Heparin Sod 1000 units/ml 10ml IV PRN (19:30)
[2018-09-19 20:00] VITALS: BP 120/76
[2018-09-19] MEDS: Dyna-Hex 2% Top Sol 2oz TOPIC SCH (20:18)
[2018-09-19] MEDS: Epoetin Alfa-EPBX(ESRD on dialysis)3000 units/ml vial SUBQ SCH (20:19)
[2018-09-19] MEDS: Epoetin Alfa-EPBX(ESRD on dialysis)2000 units/ml vial SUBQ SCH (20:19)
--- NOTE | 2018-09-19 20:30 | NUR ---
NURSE NOTES: Pt report received from Rhoda RN DON. Pt appears to be in stable condition as she is talking to family members by bed side. Pt is alert and oriented times 4, able to follow commands, pt pupils are round and reactive to light and accommodating, bilaterally. PICC line/ PermCath lines are intact, no abnormalities noted. pt is on 4L NC and is saturating at 99%, no signs symptoms of acute respiratory distress noted. all safety precautions are active, bed locked and low, bed armed, bed in lowest position, call light within reach. will continue plan of care.
--- NOTE | 2018-09-19 20:40 | NUR ---
NURSE NOTES: Report received from SUNG Quintanilla. Pt A/Ox4, ekg monitor tech shows SR. Pt currently on 4LNC, O2 saturation @ 98%. Pt showing no signs of acute respiratory or cardiac distress. Pt has a KAYLA AV shunt, permacath, and PICC line present and asymptomatic. JOCELYNE swelling noted and currently elevated. Ecchymosis on upper extremities. Pt to be d/c tomorrow after HD. Bed in lowest position, bed alarms placed, call light within reach. Will continue to monitor and with patients plan of care.
[2018-09-20] VITALS (7 sets, daily range): BP systolic 108–152; BP diastolic 55–74
[2018-09-20] MEDS: Cefepime 1gm in D5W 55ml IVPB SCH (03:34)
--- NOTE | 2018-09-20 04:15 | Progress Note ---
DATE: 09/19/2018 CARDIOLOGY PROGRESS NOTE SUBJECTIVE: The patient has been receiving hemodialysis with ultrafiltration daily. Her shortness of breath has improved. OBJECTIVE: VITAL SIGNS: Blood pressure 110/63, heart rate 96, and respirations 28. LUNGS: Diminished breath sounds. Few rales. HEART: Regular rhythm and rate. Normal S1, S2 with a 2/6 systolic murmur at the apex. ABDOMEN: Soft. EXTREMITIES: With trace edema. LABORATORY DATA: Blood cultures remain negative. White count 10.4 and hemoglobin 8.4. Sodium 137, potassium 4.2, bicarbonate 30, BUN 38, and creatinine 3.5. Albumin 1.6. IMPRESSION: 1. Hypertensive heart disease now with low range blood pressure as ultrafiltration continues. 2. End-stage renal disease. 3. Acute on chronic diastolic congestive heart failure. 4. History of endocarditis now with no signs of bacteremia status post treatment. 5. Pleural effusion status post thoracentesis. PLAN: 1. Continue hemodialysis with ultrafiltration. 2. Off antimicrobials. 3. Respiratory hygiene. 4. Amlodipine to be tapered off in view of decreasing blood pressure range. 5. Long-term antibiotic prophylaxis. 6. Recommended for future instrumentation and dental work. Edward Mendez M.D. DR: SILVANA JOB#: [id number] CC:
[2018-09-20] MEDS ORDERED: Heparin Sod 1000 units/ml 10ml IV PRN (06:00)
[2018-09-20] MEDS ORDERED: Vancomycin 1gm/D5W 275ml IVPB ONE ×2 (06:00)
[2018-09-20] MEDS: metroNIDAZOLE 500mg tab ORAL SCH ×2 (06:00→15:17)
--- NOTE | 2018-09-20 07:20 | NUR ---
HAND-OFF: Report given to Socorro ALMARAZ DON.
--- NOTE | 2018-09-20 07:27 | NUR ---
NURSE NOTES: received patient report & update from licha christy. patient is on bed asleep. not in acute distress. bed is low and locked for safety. per report from [employer] food shift supervisor nurse, patient had dialysis at around 3am, 3 li out. for dc today. will follow plan of care.
[2018-09-20] MEDS: Zinc Sulfate 220mg cap ORAL SCH (08:31)
[2018-09-20] MEDS: Nephrovite tab (Rena-Vite) ORAL SCH (08:31)
[2018-09-20] MEDS ORDERED: Losartan 50mg tab ORAL SCH (09:00)
--- NOTE | 2018-09-20 09:53 | Diagnostic Imaging Report ---
Indication: Shortness of breath Technique: One view of the chest Comparison: 09/18/2018 Findings: Interim complete opacification of the left hemithorax. There is evidence of a small amount of pleural fluid on the right. There is right basilar atelectasis. Dialysis catheter, central venous catheter, left shoulder prosthesis remain. Impression: Interim complete opacification of the left hemithorax. Likely represents combination of reaccumulating pleural fluid and atelectatic lung Other stable findings as noted Findings discussed by phone with Dr. Adams at the time of interpretation
--- NOTE | 2018-09-20 09:57 | NUR ---
DISCHARGE PLANNING: NOTE CLINICALS FAXED TO [facility] FOR REVIEW. T: [phone] F: [phone] Addendum: 09/20/18 at 1116 by Danielle Manley DC ORDER CANCELLED. SON AWARE. NURSING AWARE. SNF AWARE. ROOM PROVIDED BY [facility]IRON WAS 126C
--- NOTE | 2018-09-20 09:58 | NUR ---
RADIOLOGY DEPT., CHEST X-RAY DONE.-P.DYE
--- NOTE | 2018-09-20 10:45 | NUR ---
NURSE NOTES: dr mendoza ordered thoracentesis for this patient and cancelled discharge order today.will continue to monitor.
--- NOTE | 2018-09-20 11:25 | NUR ---
PT EVALUATION NOTE Patient seen for initial evaluation, see complete evaluation for details. Patient presents with generalized weakness which impairs patient's ability to perform mobility tasks. Patient requires max assist for bed mobility tasks, unable to stand or ambulate at this time. Patient will benefit from skilled inpatient PT intervention to address strength, balance, safety and functional mobility. Recommend discharge to SNF for further rehab to improve level of functional mobility once medically cleared by MD. Addendum: 09/20/18 at 1318 by JORDAN AVILES PT Amended: Links added.
--- NOTE | 2018-09-20 11:40 | NUR ---
NURSE NOTES: left a message to son (samantha) regarding thoracentesis today. awaits callback from the son.per pat (patients brother), samantha called his celphone and is aware of the procedure.will keep on monitoring.
[2018-09-20 11:46] LABS: INR 1.1 (0.9-1.1)
--- NOTE | 2018-09-20 12:20 | NUR ---
NURSE NOTES: left a message to [facility] to call back the unit to report what time HD was done this AM. [employer] was informed that HD center has not called back yet and still waiting for their call.
[2018-09-20] MEDS: HYDROcodone/Acetamin 5/325 tab ORAL PRN (12:43)
--- NOTE | 2018-09-20 15:18 | NUR ---
NURSE NOTES:WOUND CARE FOLLOW-UP NOTES:Sacral area resolved.Sacrum pink ,dry and non-tender when palpated..Erythema thoracic and lumbar spine resolved. Both areas are pink and non-tender.Wound Lateral R tibia with 90% slough.Edges adherent and flat (L)2.5cm x (W)1.5cm. Non-viable tissue removed by . Pt tolerated well. Both heels are pink and blanchable. Scattered senile purpuras noted to chest and both upper ext. Tx. Plan:Cleanse wound lateral R tibia with Saline. Apply Therahoney. Apply Cavilon Skin Barrier periwound . Cover with Optifoam drsg. Change Daily and prn. Apply Cavilon Skin Barrier to thoracic and Lumbar spine. Cover each site with Optifoam drsg. Change every 7 days an prn. Apply Moisture Barrier Paste to Sacrum. Cover with Optifoam drsg. Change every 3 days and prn. Apply Cavilon Skin Barrier to each heel . Cover each heel with Optifoam drsg. Change every 7 days and prn. APM/MOISES mattress. Reposition at least every 2hours or as tolerated. Off-load heels with Pillow.
--- NOTE | 2018-09-20 15:25 | Diagnostic Imaging Report ---
Indication: Post thoracentesis Technique: One view of the chest Comparison: 7 hours earlier Findings: Interim partial reexpansion of the left lung. No pneumothorax. Unchanged right lung and pleural space, unchanged catheters. Impression: Partial reexpansion of left lung, status post low-volume thoracentesis. No radiographically evident complication
--- NOTE | 2018-09-20 15:25 | Pre-Procedure Note/Attestation ---
Pre-Procedure Note/Attestation Complete Prior to Procedure Planned Procedure: left Procedure Narrative: thoracentesis Indications for Procedure Pre-Operative Diagnosis: pleural effusion Attestation I attest that I discussed the nature of the procedure; its benefits; risks and complications; and alternatives (and the risks and benefits of such alternatives ), prior to the procedure, with the patient (or the patient's legal support representative). I attest that, if there was a reasonable possibility of needing a blood transfusion, the patient (or the patient's legal support representative) was given the [facility] standardized written summary, pursuant to the Jimmy Lanny Blood Safety Act ([place] Health and Safety Code # 1645, as amended). I attest that I re-evaluated the patient just prior to the surgery and that there has been no change in the patient's H&P, except as documented below: D/w pt. at commencement of procedure Fredi Nguyễn MD Sep 20, 2018 15:25
--- NOTE | 2018-09-20 15:27 | Brief Operative Note ---
Immediate Post Operative Note Operative Note Pre-op Diagnosis: pleural effusion Procedure: Thoracentesis L Post-op Diagnosis: same as pre-op Anesthesia: local Specimen: none Complications: none Fluids: none Implant(s) used?: No Fredi Nguyễn MD Sep 20, 2018 15:27
--- NOTE | 2018-09-20 16:04 | Pulmonology Progress Note ---
Assessment/Plan Assessment/Plan 1. Hemoptysis, due to pulm edema, resolved 2. End-stage renal disease. On dialysis. 3. 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 4. Recent stroke. 5. Renal mass. 6. Penicillin allergy. 7. 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 8. Peripheral artery disease. 9. Renal mass. 10. Clostridium difficile colitis. 11. CHF CXR total atelectasis L lung - dc held better after 140 cc thoracentesis some atelectasis and scarring also better w daily HD/UF cont dialysis, UF as tolerated disc w Dr Marcum, RN disc w ID Subjective Constitutional: Reports: no symptoms, fatigue; Denies: fever Respiratory: Denies: shortness of breath Allergies: Coded Allergies: PENICILLINS (Unverified Allergy, Unknown, 09/12/18) Objective Last 24 Hour Vital Signs Date Time Temp Pulse Resp B/P (MAP) Pulse Ox O2 Delivery O2 Flow Rate FiO2 09/20/18 12:00 97.5 78 22 125/56 (79) 99 09/20/18 11:47 82 09/20/18 08:31 152/60 09/20/18 08:00 74 09/20/18 08:00 97.0 74 20 152/62 (92) 97 09/20/18 07:23 99 Nasal Cannula 3.0 32 09/20/18 07:22 77 20 99 Nasal Cannula 3.0 32 09/20/18 04:00 97.7 74 20 135/63 (87) 100 09/20/18 03:19 68 09/20/18 00:00 76 09/20/18 00:00 98.0 91 21 108/60 (76) 100 09/19/18 20:57 98.1 09/19/18 20:00 91 09/19/18 20:00 98.0 75 24 120/76 (91) 98 09/19/18 18:47 97 Nasal Cannula 3.0 32 09/19/18 18:47 73 18 97 Nasal Cannula 3.0 32 Intake and Output 09/19/18 09/20/18 18:59 06:59 Intake Total 400 ml 55 ml Output Total 2500 ml Balance -2100 ml 55 ml Intake Oral 400 ml IV Total 55 ml Output Hemodialysis UF 2500 ml # Bowel Movements 1 General Appearance: no acute distress HEENT: atraumatic Respiratory/Chest: decreased breath sounds Cardiovascular: normal rate Laboratory Tests 09/20/18 03:30: Vancomycin Level Trough 18.2H 09/20/18 11:00: Prothrombin Time 11.3, Prothromb Time International Ratio 1.1, Activated Partial Thromboplast Time 25 Current Medications Medications (Trade) Dose Ordered Sig/[place] Route PRN Reason Start Time Stop Time Status Last Admin Dose Admin Acetaminophen (Tylenol) 650 mg Q6H PRN ORAL Mild Pain/Temp > 100.5 09/12/18 11:30 10/12/18 11:29 Cefepime HCl 1 gm/ Dextrose 55 ml @ 110 mls/hr Q24H IVPB 09/15/18 04:00 09/22/18 03:59 09/20/18 03:34 Chlorhexidine Gluconate (Mira-Hex 2%) 1 applic DAILY@2000 TOPIC 09/13/18 20:00 10/13/18 19:59 09/19/18 20:18 Epoetin Rudolph (Epoetin Rudolph(ESRD on dialysis)) 2,000 unit MON-MON-MON SUBQ 09/14/18 21:00 10/14/18 20:59 09/19/18 20:19 Epoetin Rudolph (Epoetin Rudolph(ESRD on dialysis)) 3,000 unit MON-MON-MON SUBQ 09/14/18 21:00 10/14/18 20:59 09/19/18 20:19 Gabapentin (Neurontin) 100 mg DAILY ORAL 09/14/18 09:00 10/14/18 08:59 09/20/18 08:31 Guaifenesin (Robitussin) 100 mg Q4H PRN ORAL For Cough 09/12/18 13:00 10/12/18 12:59 Heparin Sodium (Porcine) (Heparin Sod 1000 units/ml 10ml) 500 unit ONCE PRN IV FOR HD USE ONLY 09/20/18 06:00 09/20/18 23:59 Levothyroxine Sodium (Synthroid) 150 mcg Q24H ORAL 09/13/18 06:30 10/13/18 06:29 09/20/18 06:00 Losartan Potassium (Cozaar) 100 mg DAILY ORAL 09/20/18 09:00 10/20/18 08:59 09/20/18 08:31 Methocarbamol (Robaxin) 500 mg QIDPRN PRN ORAL MUSCLE PAIN 09/12/18 12:30 10/12/18 12:29 09/16/18 00:43 Ondansetron HCl (Zofran) 4 mg QIDPRN PRN ORAL Nausea & Vomiting 09/19/18 16:45 10/19/18 16:44 09/19/18 17:01 Pantoprazole (Protonix) 40 mg DAILY ORAL 09/13/18 09:00 10/13/18 08:59 09/20/18 08:31 Pravastatin Sodium (Pravachol) 40 mg BEDTIME ORAL 09/12/18 21:00 10/12/18 20:59 09/19/18 20:18 Sodium Chloride 1,000 ml @ 500 mls/hr Q2H PRN IVLG sbp<90 during hd 09/20/18 04:00 09/20/18 23:59 Vancomycin HCl (Vanco rx to dose) 1 ea DAILY PRN MISC Per rx protocol 09/12/18 18:45 10/12/18 18:44 Vitamin B Complex/ Vit C/Folic Acid (Nephrovite) 1 tab DAILY ORAL 09/13/18 09:00 10/13/18 08:59 09/20/18 08:31 Zinc Sulfate (Zinc Sulfate) 220 mg DAILY ORAL 09/13/18 09:00 10/13/18 08:59 09/20/18 08:31 Curtis Adams MD Sep 20, 2018 16:04
--- NOTE | 2018-09-20 16:08 | Diagnostic Imaging Report ---
Indications: Pleural effusion Technique: Ultrasound used to localize optimal puncture site. Sterile prepping and draping left chest. Local anesthesia with 1% lidocaine. Under real-time ultrasound guidance, puncture pleural space using thoracentesis needle. Stylet removed. Catheter placed to vacuum bottle suction. Total 150 milliliters of fluid aspirated. Patient tolerated procedure well, without immediate complication. Findings: Followup sonography demonstrates complete resolution of pleural fluid. Impression: Successful ultrasound-guided thoracentesis, yielding 150 milliliters of clear yellow fluid
--- NOTE | 2018-09-20 17:38 | Infectious Diseases Prog Note ---
Assessment/Plan Assessment/Plan ASSESSMENT AND PLAN: 1. possible sepsis, leukocytosis, ? TB pna, ? HCAP, hx endocarditis and cervical osteomyelitis, effusion - continue vancomycin, cefepime and flagyl - day # 9 - monitor labs and chest x-ray, sputum culture with yeast which is likely colonizer - see below for recs for hx endocarditis and cervical osteomyelitis - leukocytosis improved - s/p thoracentesis - culture negative - d/w Dr. Adams 2. Rule out TB pneumonia - afb smear neg x 3, t-spot negative, isolation discontinued 3. History of cervical osteomyelitis - continue abx, patient to f/u with primary treatment team once discharged 4. History of endocarditis - hx enterococcus bacteremia and endocarditis per [facility] records. Patient was being treated with ? zosyn until 10/01/18. Patient to follow with primary treatment team once discharged. (Note enterococcus was sensitive to ampicillin/pcn and vancomycin.) records from [facility]. Check echo and again sedimentation rate and check surveillance blood cultures. 5. The patient is on vancomycin and cefepime to have coverage for cervical osteomyelitis and endocarditis, but we will have to see what the pathogens were in the records. 6. Anemia. 7. End-stage renal disease, on hemodialysis. 8. History of fracture of the right femur. 9. History of hypertension. Blood pressure treatment per Dr. Adams. 10. Weakness. 11. Gastroesophageal reflux disease. 12. Hyperlipidemia. 13. Hypothyroidism. 14. History of cataracts and benign neoplasm of the parathyroid. 15. Allergic to penicillin tolerates cephalosporins. 16. Social history is negative. 17. Family history is noncontributory. 18. MAR was noted. 19. Case was discussed with RN. 20. Continue treatment per primary consultants. 21. hx c.diff. in past but no diarrhea currently Subjective Constitutional: Reports: fatigue; Denies: fever HEENT: Reports: congestion - mild Respiratory: Reports: shortness of breath - mild Cardiovascular: Denies: chest pain Gastrointestinal/Abdominal: Denies: nausea, vomiting, diarrhea Genitourinary: Reports: other - no connors Neurologic: Denies: headache Psychiatric: Denies: depression Skin: Denies: rash Hematologic: Denies: bleeding Musculoskeletal: Denies: pain Allergies: Coded Allergies: PENICILLINS (Unverified Allergy, Unknown, 09/12/18) Objective Vital Signs Last 24 Hour Vital Signs Date Time Temp Pulse Resp B/P (MAP) Pulse Ox O2 Delivery O2 Flow Rate FiO2 09/20/18 16:00 97.7 75 20 114/55 (74) 97 09/20/18 16:00 82 09/20/18 12:00 97.5 78 22 125/56 (79) 99 09/20/18 11:47 82 09/20/18 08:31 152/60 09/20/18 08:00 74 09/20/18 08:00 97.0 74 20 152/62 (92) 97 09/20/18 07:23 99 Nasal Cannula 3.0 32 09/20/18 07:22 77 20 99 Nasal Cannula 3.0 32 09/20/18 04:00 97.7 74 20 135/63 (87) 100 09/20/18 03:19 68 09/20/18 00:00 76 09/20/18 00:00 98.0 91 21 108/60 (76) 100 09/19/18 20:57 98.1 09/19/18 20:00 91 09/19/18 20:00 98.0 75 24 120/76 (91) 98 09/19/18 18:47 97 Nasal Cannula 3.0 32 09/19/18 18:47 73 18 97 Nasal Cannula 3.0 32 Height (Feet): 5 Height (Inches): 4.00 Weight (Pounds): 144 General Appearance: no acute distress HEENT: normocephalic, atraumatic, anicteric, mucous membranes moist Respiratory/Chest: decreased breath sounds, crackles/rales, rhonchi - bilaterally Cardiovascular: normal rate, regular rhythm, no gallop/murmur, no JVD Abdomen: normal bowel sounds, soft, non tender, no organomegaly, non distended Genitourinary: other - no connors Extremities: no cyanosis Skin: no rash Neurologic/Psychiatric: couples therapist II-XII grossly normal, alert, responsive Lymphatic: no neck adenopathy Musculoskeletal: no effusion Objective CT chest - Impression: Suboptimal opacification of the pulmonary arteries; no gross large vessel pulmonary emboli demonstrated Negative for thoracic aortic aneurysm or dissection Four-chamber cardiomegaly Interstitial septal thickening, likely secondary to pulmonary edema. Groundglass and denser airspace opacities diffusely bilaterally, likely on the basis of pulmonary edema but other etiologies possible Large left and small right pleural effusions. That on the left is possibly loculated, particularly in the upper hemithorax Ascites Anasarca, with, in addition to the above findings, diffuse edema of the subcutaneous, mediastinal, and abdominal fat Compressive atelectasis of much of the left lower lobe and portions of the right lower lobe due to the pleural fluid Evidence of COPD changes Mediastinal lymphadenopathy, may reactive or neoplastic 2 cm enhancing left renal mass, worrisome for renal neoplasm. Consider dedicated renal CT for better characterization Partial eggshell calcification within the renal sinus, could represent a partially calcified renal artery aneurysm versus a postinflammatory lesion Hepatic surface nodularity, likely cirrhosis Scattered areas of arterial hyperenhancement in the liver, likely related to cirrhotic change or transient areas of arterial enhancement T12 compression fracture with posterior retropulsion. 09/13/18 - chest x-ray - Procedure: XRAY Chest 1v Indication: Shortness of breath Technique: One view of the chest Comparison: 09/12/2018 Findings: Evidence of slightly better aeration in the right perihilar region, with decreased consolidation and atelectasis. Generalized bilateral diffuse interstitial and airspace disease may be slightly improved since prior study overall, although still persistent and extensive. Bilateral left greater than right pleural effusions persist, may be slightly improved on the left. Left jugular tunneled dialysis catheter remains. Left jugular central venous catheter remains with its tip projected retrograde into the azygos vein. The heart is upper limits normal in size. The edge of a left shoulder prosthesis is noted Impression: Suggestion of slightly improved but still persists and extensive bilateral parenchymal disease. Possible slight improvement of still large left pleural effusion Chest x-ray - 09/18/18 - Procedure: XRAY Chest 1v Indication: Shortness of breath Technique: One view of the chest Comparison: 09/17/2018 Findings: Again demonstrated are interstitial airspace opacities throughout the left lung, appearing unchanged. Apparent pleural thickening in the left upper hemithorax likely reflects suspected loculated pleural fluid seen on recent CT scan. Opacity at the left lung base may reflect consolidation or residual pleural fluid. Mild interstitial congestion on the right is probably unchanged allowing for differences in exposure technique. Central venous catheter and tunneled dialysis catheter, left shoulder prosthesis remain. Impression: Unchanged, over one day, findings as above. Chest x-ray - 09/20/18 - Procedure: XRAY Chest 1v Indication: Post thoracentesis Technique: One view of the chest Comparison: 7 hours earlier Findings: Interim partial reexpansion of the left lung. No pneumothorax. Unchanged right lung and pleural space, unchanged catheters. Impression: Partial reexpansion of left lung, status post low-volume thoracentesis. No radiographically evident complication Microbiology Date/Time Source Procedure Growth Status 09/12/18 02:05 Blood Blood Culture - Final NO GROWTH AFTER 5 DAYS Complete 09/17/18 14:20 Body Fluid Lt Lung (Pleura) Gram Stain - Final Resulted 09/17/18 14:20 Body Fluid Lt Lung (Pleura) Body Fluid Culture - Preliminary NO GROWTH AFTER 48 HOURS Resulted 09/15/18 06:50 Sputum AFB Specimen Processing Tissue - Final Resulted 09/15/18 06:50 Sputum Acid Fast Bacilli Smear - Final Resulted 09/15/18 06:50 Sputum Acid Fast Bacilli Culture Pending Resulted 09/12/18 04:00 Rectum VRE Culture - Final NO VANCOMYCIN RESISTANT ENTEROCOCCUS ... Complete Labs Test 09/18/18 03:10 09/19/18 03:20 09/20/18 03:30 09/20/18 11:00 White Blood Count 9.8 K/UL (4.8-10.8) 10.4 K/UL (4.8-10.8) Red Blood Count 2.28 M/UL (4.20-5.40) 2.33 M/UL (4.20-5.40) Hemoglobin 8.0 G/DL (12.0-16.0) 8.4 G/DL (12.0-16.0) Hematocrit 24.3 % (37.0-47.0) 24.8 % (37.0-47.0) Mean Corpuscular Volume 106 FL (80-99) 107 FL (80-99) Mean Corpuscular Hemoglobin 35.2 PG (27.0-31.0) 35.9 PG (27.0-31.0) Mean Corpuscular Hemoglobin Concent 33.1 G/DL (32.0-36.0) 33.7 G/DL (32.0-36.0) Red Cell Distribution Width 18.0 % (11.6-14.8) 18.7 % (11.6-14.8) Platelet Count 239 K/UL (150-450) 261 K/UL (150-450) Mean Platelet Volume 6.6 FL (6.5-10.1) 7.3 FL (6.5-10.1) Neutrophils (%) (Auto) 81.9 % (45.0-75.0) 74.9 % (45.0-75.0) Lymphocytes (%) (Auto) 8.5 % (20.0-45.0) 11.5 % (20.0-45.0) Monocytes (%) (Auto) 6.8 % (1.0-10.0) 9.5 % (1.0-10.0) Eosinophils (%) (Auto) 1.3 % (0.0-3.0) 2.8 % (0.0-3.0) Basophils (%) (Auto) 1.4 % (0.0-2.0) 1.2 % (0.0-2.0) Sodium Level 137 MMOL/L (136-145) 137 MMOL/L (136-145) Potassium Level 3.9 MMOL/L (3.5-5.1) 4.2 MMOL/L (3.5-5.1) Chloride Level 101 MMOL/L (98-107) 99 MMOL/L (98-107) Carbon Dioxide Level 26 MMOL/L (21-32) 30 MMOL/L (21-32) Anion Gap 10 mmol/L (5-15) 8 mmol/L (5-15) Blood Urea Nitrogen 37 mg/dL (7-18) 38 mg/dL (7-18) Creatinine 3.7 MG/DL (0.55-1.30) 3.5 MG/DL (0.55-1.30) Estimat Glomerular Filtration Rate mL/min (>60) mL/min (>60) Glucose Level 92 MG/DL (74-106) 88 MG/DL (74-106) Calcium Level 7.5 MG/DL (8.5-10.1) 8.0 MG/DL (8.5-10.1) Magnesium Level 1.8 MG/DL (1.8-2.4) Total Bilirubin 0.7 MG/DL (0.2-1.0) 0.6 MG/DL (0.2-1.0) Aspartate Amino Transf (AST/SGOT) 26 U/L (15-37) 19 U/L (15-37) Alanine Aminotransferase (ALT/SGPT) 10 U/L (12-78) 10 U/L (12-78) Alkaline Phosphatase 102 U/L (46-116) 139 U/L (46-116) Pro-B-Type Natriuretic Peptide 10826 pg/mL (0-125) Total Protein 5.1 G/DL (6.4-8.2) 5.6 G/DL (6.4-8.2) Albumin 1.4 G/DL (3.4-5.0) 1.6 G/DL (3.4-5.0) Globulin 3.7 g/dL 4.0 g/dL Albumin/Globulin Ratio 0.4 (1.0-2.7) 0.4 (1.0-2.7) Vancomycin Level Trough 18.2 ug/mL (5.0-12.0) Prothrombin Time 11.3 SEC (9.30-11.50) Prothromb Time International Ratio 1.1 (0.9-1.1) Activated Partial Thromboplast Time 25 SEC (23-33) Laboratory Tests Test 09/20/18 03:30 09/20/18 11:00 Vancomycin Level Trough 18.2 ug/mL (5.0-12.0) H Prothrombin Time 11.3 SEC (9.30-11.50) Prothromb Time International Ratio 1.1 (0.9-1.1) Activated Partial Thromboplast Time 25 SEC (23-33) Current Medications Medications (Trade) Dose Ordered Sig/[place] Route PRN Reason Start Time Stop Time Status Last Admin Dose Admin Acetaminophen (Tylenol) 650 mg Q6H PRN ORAL Mild Pain/Temp > 100.5 09/12/18 11:30 10/12/18 11:29 Cefepime HCl 1 gm/ Dextrose 55 ml @ 110 mls/hr Q24H IVPB 09/15/18 04:00 09/22/18 03:59 09/20/18 03:34 Chlorhexidine Gluconate (Mira-Hex 2%) 1 applic DAILY@2000 TOPIC 09/13/18 20:00 10/13/18 19:59 09/19/18 20:18 Epoetin Rudolph (Epoetin Rudolph(ESRD on dialysis)) 2,000 unit MON- SUBQ 09/14/18 21:00 10/14/18 20:59 09/19/18 20:19 Epoetin Rudolph (Epoetin Rudolph(ESRD on dialysis)) 3,000 unit SUBQ 09/14/18 21:00 10/14/18 20:59 09/19/18 20:19 Gabapentin (Neurontin) 100 mg DAILY ORAL 09/14/18 09:00 10/14/18 08:59 09/20/18 08:31 Guaifenesin (Robitussin) 100 mg Q4H PRN ORAL For Cough 09/12/18 13:00 10/12/18 12:59 Heparin Sodium (Porcine) (Heparin Sod 1000 units/ml 10ml) 500 unit ONCE PRN IV FOR HD USE ONLY 09/20/18 06:00 09/20/18 23:59 Levothyroxine Sodium (Synthroid) 150 mcg Q24H ORAL 09/13/18 06:30 10/13/18 06:29 09/20/18 06:00 Losartan Potassium (Cozaar) 100 mg DAILY ORAL 09/20/18 09:00 10/20/18 08:59 09/20/18 08:31 Methocarbamol (Robaxin) 500 mg QIDPRN PRN ORAL MUSCLE PAIN 09/12/18 12:30 10/12/18 12:29 09/16/18 00:43 Ondansetron HCl (Zofran) 4 mg QIDPRN PRN ORAL Nausea & Vomiting 09/19/18 16:45 10/19/18 16:44 09/19/18 17:01 Pantoprazole (Protonix) 40 mg DAILY ORAL 09/13/18 09:00 10/13/18 08:59 09/20/18 08:31 Pravastatin Sodium (Pravachol) 40 mg BEDTIME ORAL 09/12/18 21:00 10/12/18 20:59 09/19/18 20:18 Sodium Chloride 1,000 ml @ 500 mls/hr Q2H PRN IVLG sbp<90 during hd 09/20/18 04:00 09/20/18 23:59 Vancomycin HCl (Vanco rx to dose) 1 ea DAILY PRN MISC Per rx protocol 09/12/18 18:45 10/12/18 18:44 Vitamin B Complex/ Vit C/Folic Acid (Nephrovite) 1 tab DAILY ORAL 09/13/18 09:00 10/13/18 08:59 09/20/18 08:31 Zinc Sulfate (Zinc Sulfate) 220 mg DAILY ORAL 09/13/18 09:00 10/13/18 08:59 09/20/18 08:31 Leonor Thakkar MD Sep 20, 2018 17:38
--- NOTE | 2018-09-20 19:24 | NUR ---
HAND-OFF: Report given to wilmer christy.
--- NOTE | 2018-09-20 19:24 | NUR ---
NURSE NOTES: Report received from SUNG Quintanilla. Pt A/Ox4, supervisor final shows SR. Pt currently on 4LNC, O2 saturation @ 95%. Pt showing no signs of acute respiratory or cardiac distress. Pt has a KAYLA AV shunt with bruit and thrill noted and a JOCELYNE AV shunt with no noted bruit and thrill. Permacath, and PICC line present on left subclavian, asymptomatic and patent. JOCELYNE swelling noted and currently elevated. Ecchymosis on upper extremities. Pt s/p thoracentesis. HD done today with 3L removed. Bed in lowest position, bed alarms placed, call light within reach. Will continue to monitor and with patients plan of care.
--- NOTE | 2018-09-20 20:10 | NUR ---
NURSE NOTES: Pt complaining of on and off difficulty breathing.Continuous pulse ox placed. Current O2 saturation @ 96%. Pt repositioned. Will continue to monitor.
[2018-09-20] MEDS: Dyna-Hex 2% Top Sol 2oz TOPIC SCH (20:12)
--- NOTE | 2018-09-20 21:08 | Nephrology Progress Note ---
Assessment/Plan Problem List: (1) CHF (congestive heart failure), NYHA class II (2) Hemoptysis, unspecified (3) Osteomyelitis of cervical spine (4) ESRD (end stage renal disease) on dialysis (5) Bilateral pleural effusion (6) Malnutrition Plan dialysis for fluid overload, stop amlodipine to mitigate hypotension, pulm care , seems improved after fluid removal, continuing rx for osteo and possible pneumonia, HD 09/20 -2500 ml, continue trying to remove excess fluid, HD 09/21 Subjective Constitutional: Reports: weakness HEENT: Reports: no symptoms Neurologic/Psychiatric: Reports: pre-existing deficit Subjective off bipap less dyspnea Objective Objective Last 24 Hour Vital Signs Date Time Temp Pulse Resp B/P (MAP) Pulse Ox O2 Delivery O2 Flow Rate FiO2 09/20/18 20:13 85 20 97 Nasal Cannula 3.0 32 09/20/18 20:13 97 Nasal Cannula 3.0 32 09/20/18 20:00 97.7 84 16 137/57 (83) 95 09/20/18 16:00 97.7 75 20 114/55 (74) 97 09/20/18 16:00 82 09/20/18 12:00 97.5 78 22 125/56 (79) 99 09/20/18 11:47 82 09/20/18 08:31 152/60 09/20/18 08:00 74 09/20/18 08:00 97.0 74 20 152/62 (92) 97 09/20/18 07:23 99 Nasal Cannula 3.0 32 09/20/18 07:22 77 20 99 Nasal Cannula 3.0 32 09/20/18 04:00 97.7 74 20 135/63 (87) 100 09/20/18 03:19 68 09/20/18 00:00 76 09/20/18 00:00 98.0 91 21 108/60 (76) 100 Intake and Output 09/19/18 09/20/18 19:00 07:00 Intake Total 400 ml 55 ml Output Total 2500 ml Balance -2100 ml 55 ml Intake Oral 400 ml IV Total 55 ml Output Hemodialysis UF 2500 ml # Bowel Movements 1 Laboratory Tests 09/20/18 03:30: Vancomycin Level Trough 18.2H 09/20/18 11:00: Prothrombin Time 11.3, Prothromb Time International Ratio 1.1, Activated Partial Thromboplast Time 25 Height (Feet): 5 Height (Inches): 4.00 Weight (Pounds): 144 General Appearance: alert, thin EENT: PERRL/EOMI Neck: normal alignment Cardiovascular: normal rate, regular rhythm Respiratory/Chest: decreased breath sounds Abdomen: non tender, soft Extremities: other - no edema Neurologic: safety coordinator II-XII grossly normal Dragan Marcum MD Sep 20, 2018 21:08
--- NOTE | 2018-09-20 21:18 | NUR ---
NURSE NOTES: Dr. Adams contacted regarding noted SOB and difficulty breathing. O2 saturation remains @ 95%. Order to place pt on bipap 03/07. RT contacted.
[2018-09-20] MEDS ORDERED: metroNIDAZOLE 500mg tab ORAL SCH (22:00)
--- NOTE | 2018-09-20 22:10 | NUR ---
NURSE NOTES: Report given to SUNG Camacho. Pt Showing no signs of acute distress. Upon transfer to telemetry unit pt refused continuation of bipap. Advised pt if she begins to experience SOB, she will need to be placed back onto bipap once more.
[2018-09-20] MEDS ORDERED: Heparin Sod 1000 units/ml 10ml IV ONE ×2 (22:15)
--- NOTE | 2018-09-20 23:27 | NUR ---
NURSE NOTES: Contacted [facility] and spoke to Toan regarding pt's HD schedule for 09/21. Toan said he will rely the message to the timber supervisor senior search marketing analyst to call back.
[2018-09-21] VITALS: BP 150/87
[2018-09-21] MEDS ORDERED: guaiFENesin 100mg/5ml Liq ud ORAL PRN (01:00)
[2018-09-21 04:00] VITALS: BP 127/62
[2018-09-21] MEDS ORDERED: Cefepime HCl 1 GM in D5W 55 ML IVPB SCH ×4 (04:00)
--- NOTE | 2018-09-21 04:30 | Progress Note ---
DATE: 09/20/2018 CARDIOLOGY PROGRESS NOTE SUBJECTIVE: The patient is still with congestion. Blood cultures negative. The patient's chest x-ray revealed total atelectasis. Thoracentesis was performed. Some improvement in re-expansion noted. PHYSICAL EXAMINATION: VITAL SIGNS: Blood pressure 125/56, heart rate 78, respiratory rate 22. Monitored rhythm, sinus. LUNGS: Diminished breath sounds. Scattered rhonchi. HEART: Regular rhythm and rate. Normal S1, S2 with a 2/6 holosystolic apical murmur. ABDOMEN: Soft. No edema. IMPRESSION: Tenuous. PLAN: 1. Continue hemodialysis with ultrafiltration. 2. Antimicrobials for endocarditis, only for recurring bacteremia. 3. Antibiotic prophylaxis for any instrumentation in the future. 4. Respiratory hygiene. 5. Recheck chest x-ray. 6. Pulmonary followup regarding left lung collapse. 7. We will follow and cautiously titrate antihypertensive drugs. Edward Mendez M.D. DR: AUTUMN JOB#: [id number] CC:
[2018-09-21] MEDS: metroNIDAZOLE 500mg tab ORAL SCH ×2 (06:27→14:20)
[2018-09-21 06:41] LABS: BASOPHILS % (AUTO) 1.6 % (0.0-2.0); EOSINOPHILS % (AUTO) 3.1 % (0.0-3.0); HEMATOCRIT 28.7 % (37.0-47.0); HEMOGLOBIN 9.4 G/DL (12.0-16.0); LYMPHOCYTES % (AUTO) 11.7 % (20.0-45.0); MEAN CORPUSCULAR VOLUME 110 FL (80-99); MONOCYTES % (AUTO) 8.2 % (1.0-10.0); NEUTROPHILS % (AUTO) 75.3 % (45.0-75.0); PLATELET COUNT 303 K/UL (150-450); RED BLOOD COUNT 2.62 M/UL (4.20-5.40); WHITE BLOOD COUNT 10.9 K/UL (4.8-10.8)
--- NOTE | 2018-09-21 06:44 | NUR ---
NURSE NOTES: Contacted [facility] for the second time regarding pt's schedule HD 09/22. Awaiting call back from asset protection professional HD RN. Endorsed to SUNG Caballero.
[2018-09-21 07:10] LABS: ALANINE AMINOTRANSFERASE 16 U/L (12-78); ALBUMIN 1.8 G/DL (3.4-5.0); ALBUMIN/GLOBULIN RATIO 0.4 (1.0-2.7); ALKALINE PHOSPHATASE 132 U/L (46-116); ANION GAP 9 mmol/L (5-15); ASPARTATE AMINO TRANSFERASE 18 U/L (15-37); BILIRUBIN,TOTAL 0.5 MG/DL (0.2-1.0); BLOOD UREA NITROGEN 38 mg/dL (7-18); CALCIUM 8.9 MG/DL (8.5-10.1); CARBON DIOXIDE 32 MMOL/L (21-32); CHLORIDE 98 MMOL/L (98-107); CREATININE 3.4 MG/DL (0.55-1.30); POTASSIUM 4.7 MMOL/L (3.5-5.1); SODIUM 139 MMOL/L (136-145)
--- NOTE | 2018-09-21 07:11 | NUR ---
NURSE NOTES: Received report from SUNG Camacho. Pt in bed, talkative, no complaints of pain, no apparent distress noted, on p-200 mattress for wounds, bed in lowest position, call light within reach.
--- NOTE | 2018-09-21 07:52 | NUR ---
HAND-OFF: Report given to SUNG Caballero.
[2018-09-21 08:00] VITALS: BP 120/61
[2018-09-21] MEDS ORDERED: Heparin Sod 1000 units/ml 10ml IV SCH (08:00)
--- NOTE | 2018-09-21 08:08 | Nephrology Progress Note ---
Assessment/Plan Problem List: (1) CHF (congestive heart failure), NYHA class II (2) Hemoptysis, unspecified (3) Osteomyelitis of cervical spine (4) ESRD (end stage renal disease) on dialysis (5) Bilateral pleural effusion (6) Malnutrition Plan dialysis for fluid overload, stop amlodipine to mitigate hypotension, pulm care , seems improved after fluid removal, continuing rx for osteo and possible pneumonia, HD 09/20 -2500 ml, continue trying to remove excess fluid, HD 09/21 Subjective Constitutional: Reports: weakness HEENT: Reports: no symptoms Genitourinary: Reports: incontinence Neurologic/Psychiatric: Reports: no symptoms Subjective off bipap less dyspnea Objective Objective Last 24 Hour Vital Signs Date Time Temp Pulse Resp B/P (MAP) Pulse Ox O2 Delivery O2 Flow Rate FiO2 09/21/18 04:00 97.2 89 18 127/62 (83) 96 09/21/18 04:00 78 09/21/18 00:00 89 09/21/18 00:00 97.3 89 16 150/87 (108) 100 09/20/18 22:10 87 22 94 4.0 09/20/18 22:05 97.4 80 18 143/74 (97) 99 09/20/18 21:27 84 24 98 Facial 35 09/20/18 20:13 85 20 97 Nasal Cannula 3.0 32 09/20/18 20:13 97 Nasal Cannula 3.0 32 09/20/18 20:00 84 09/20/18 20:00 97.7 84 16 137/57 (83) 95 09/20/18 16:00 97.7 75 20 114/55 (74) 97 09/20/18 16:00 82 09/20/18 12:00 97.5 78 22 125/56 (79) 99 09/20/18 11:47 82 09/20/18 08:31 152/60 Intake and Output 09/20/18 09/21/18 19:00 07:00 Intake Total 567.416 ml 240 ml Output Total 150 ml Balance 417.416 ml 240 ml Intake Oral 200 ml 240 ml IV Total 367.416 ml Other 150 ml Laboratory Tests 09/20/18 11:00: Prothrombin Time 11.3, Prothromb Time International Ratio 1.1, Activated Partial Thromboplast Time 25 09/21/18 05:59: White Blood Count 10.9H, Red Blood Count 2.62L, Hemoglobin 9.4L, Hematocrit 28.7L, Mean Corpuscular Volume 110H, Mean Corpuscular Hemoglobin 35.7H, Mean Corpuscular Hemoglobin Concent 32.6, Red Cell Distribution Width 19.0H, Platelet Count 303, Mean Platelet Volume 7.0, Neutrophils (%) (Auto) 75.3H, Lymphocytes (%) (Auto) 11.7L, Monocytes (%) (Auto) 8.2, Eosinophils (%) (Auto) 3.1H, Basophils (%) (Auto) 1.6, Sodium Level 139, Potassium Level 4.7, Chloride Level 98, Carbon Dioxide Level 32, Anion Gap 9, Blood Urea Nitrogen 38H, Creatinine 3.4H, Estimat Glomerular Filtration Rate , Glucose Level 115H, Calcium Level 8.9, Total Bilirubin 0.5, Aspartate Amino Transf (AST/SGOT) 18, Alanine Aminotransferase (ALT/SGPT) 16, Alkaline Phosphatase 132H, Total Protein 6.3L, Albumin 1.8L, Globulin 4.5, Albumin/Globulin Ratio 0.4L Height (Feet): 5 Height (Inches): 4.00 Weight (Pounds): 146 General Appearance: no apparent distress, alert EENT: normal ENT inspection Neck: normal alignment Cardiovascular: normal rate, regular rhythm Respiratory/Chest: decreased breath sounds Abdomen: non tender, soft Extremities: trace edema Neurologic: snow blower II-XII grossly normal Dragan Marcum MD Sep 21, 2018 08:08
--- NOTE | 2018-09-21 08:40 | Pulmonology Progress Note ---
Assessment/Plan Assessment/Plan 1. Hemoptysis, due to pulm edema, resolved 2. End-stage renal disease. On dialysis. 3. 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 4. Recent stroke. 5. Renal mass. 6. Penicillin allergy. 7. 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 8. Peripheral artery disease. 9. Renal mass. 10. Clostridium difficile colitis. 11. CHF CXR improved HD today then SNF disc w Dr Marcum, RN Subjective Constitutional: Reports: no symptoms Allergies: Coded Allergies: PENICILLINS (Unverified Allergy, Unknown, 09/12/18) Objective Last 24 Hour Vital Signs Date Time Temp Pulse Resp B/P (MAP) Pulse Ox O2 Delivery O2 Flow Rate FiO2 09/21/18 08:07 120/61 09/21/18 08:00 97.3 74 18 120/61 (80) 98 09/21/18 04:00 97.2 89 18 127/62 (83) 96 09/21/18 04:00 78 09/21/18 00:00 89 09/21/18 00:00 97.3 89 16 150/87 (108) 100 09/20/18 22:10 87 22 94 4.0 09/20/18 22:05 97.4 80 18 143/74 (97) 99 09/20/18 21:27 84 24 98 Facial 35 09/20/18 20:13 85 20 97 Nasal Cannula 3.0 32 09/20/18 20:13 97 Nasal Cannula 3.0 32 09/20/18 20:00 84 09/20/18 20:00 97.7 84 16 137/57 (83) 95 09/20/18 16:00 97.7 75 20 114/55 (74) 97 09/20/18 16:00 82 09/20/18 12:00 97.5 78 22 125/56 (79) 99 09/20/18 11:47 82 Intake and Output 09/20/18 09/21/18 19:00 07:00 Intake Total 567.416 ml 240 ml Output Total 150 ml Balance 417.416 ml 240 ml Intake Oral 200 ml 240 ml IV Total 367.416 ml Other 150 ml General Appearance: no acute distress, cachetic Respiratory/Chest: lungs clear, decreased breath sounds Cardiovascular: normal rate Extremities: other - + edema Laboratory Tests 09/20/18 11:00: Prothrombin Time 11.3, Prothromb Time International Ratio 1.1, Activated Partial Thromboplast Time 25 09/21/18 05:59: White Blood Count 10.9H, Red Blood Count 2.62L, Hemoglobin 9.4L, Hematocrit 28.7L, Mean Corpuscular Volume 110H, Mean Corpuscular Hemoglobin 35.7H, Mean Corpuscular Hemoglobin Concent 32.6, Red Cell Distribution Width 19.0H, Platelet Count 303, Mean Platelet Volume 7.0, Neutrophils (%) (Auto) 75.3H, Lymphocytes (%) (Auto) 11.7L, Monocytes (%) (Auto) 8.2, Eosinophils (%) (Auto) 3.1H, Basophils (%) (Auto) 1.6, Sodium Level 139, Potassium Level 4.7, Chloride Level 98, Carbon Dioxide Level 32, Anion Gap 9, Blood Urea Nitrogen 38H, Creatinine 3.4H, Estimat Glomerular Filtration Rate , Glucose Level 115H, Calcium Level 8.9, Total Bilirubin 0.5, Aspartate Amino Transf (AST/SGOT) 18, Alanine Aminotransferase (ALT/SGPT) 16, Alkaline Phosphatase 132H, Total Protein 6.3L, Albumin 1.8L, Globulin 4.5, Albumin/Globulin Ratio 0.4L Current Medications Medications (Trade) Dose Ordered Sig/[place] Route PRN Reason Start Time Stop Time Status Last Admin Dose Admin Acetaminophen (Tylenol) 650 mg Q6H PRN ORAL Mild Pain/Temp > 100.5 09/20/18 23:30 10/12/18 11:29 Cefepime HCl 1 gm/ Dextrose 55 ml @ 110 mls/hr Q24H IVPB 09/21/18 04:00 09/28/18 03:59 09/21/18 03:39 Chlorhexidine Gluconate (Mira-Hex 2%) 1 applic DAILY@2000 TOPIC 09/21/18 20:00 10/13/18 19:59 Epoetin Rudolph (Epoetin Rudolph(ESRD on dialysis)) 2,000 unit MON-MON-MON SUBQ 09/21/18 21:00 10/14/18 20:59 Epoetin Rudolph (Epoetin Rudolph(ESRD on dialysis)) 3,000 unit MON-MON-MON SUBQ 09/21/18 21:00 10/14/18 20:59 Gabapentin (Neurontin) 100 mg DAILY ORAL 09/21/18 09:00 10/14/18 08:59 09/21/18 08:07 Guaifenesin (Robitussin) 100 mg Q4H PRN ORAL For Cough 09/21/18 01:00 10/12/18 12:59 Heparin Sodium (Porcine) (Heparin Sod 1000 units/ml 10ml) 500 unit ONCE IV 09/21/18 08:00 09/21/18 16:00 Levothyroxine Sodium (Synthroid) 150 mcg Q24H ORAL 09/21/18 06:30 10/13/18 06:29 09/21/18 06:27 Losartan Potassium (Cozaar) 50 mg DAILY ORAL 09/21/18 09:00 10/21/18 08:59 09/21/18 08:07 Methocarbamol (Robaxin) 500 mg QIDPRN PRN ORAL MUSCLE PAIN 09/21/18 12:30 10/12/18 12:29 Metronidazole (Flagyl) 500 mg EVERY 8 HOURS ORAL 09/21/18 06:00 09/27/18 21:59 09/21/18 06:27 Ondansetron HCl (Zofran) 4 mg QIDPRN PRN ORAL Nausea & Vomiting 09/21/18 16:45 10/19/18 16:44 Pantoprazole (Protonix) 40 mg DAILY ORAL 09/21/18 09:00 10/13/18 08:59 09/21/18 08:08 Pravastatin Sodium (Pravachol) 40 mg BEDTIME ORAL 09/21/18 21:00 10/12/18 20:59 Sodium Chloride 1,000 ml @ 500 mls/hr Q2H PRN IVLG sbp<90 during hd 09/21/18 09:00 09/21/18 23:59 Vancomycin HCl (Vanco rx to dose) 1 ea DAILY PRN MISC Per rx protocol 09/21/18 09:00 10/20/18 17:44 Vitamin B Complex/ Vit C/Folic Acid (Nephrovite) 1 tab DAILY ORAL 09/21/18 09:00 10/13/18 08:59 09/21/18 08:08 Zinc Sulfate (Zinc Sulfate) 220 mg DAILY ORAL 09/21/18 09:00 10/13/18 08:59 09/21/18 08:08 Curtis Adams MD Sep 21, 2018 08:40
[2018-09-21] MEDS ORDERED: Heparin Sod 1000 units/ml 10ml IV PRN (09:00)
[2018-09-21] MEDS ORDERED: Zinc Sulfate 220mg cap ORAL SCH (09:00)
[2018-09-21] MEDS ORDERED: Nephrovite tab (Rena-Vite) ORAL SCH (09:00)
[2018-09-21] MEDS ORDERED: Losartan 50mg tab ORAL SCH ×2 (09:00)
--- NOTE | 2018-09-21 11:50 | NUR ---
CASE MANAGEMENT:REVIEW 09/21/2018 SI: HEMOPTYSIS. T 97.2 HR 74 RR 18 B/P 120/61 SATS 98% ON 4L/NC WBC 10.9 BUN 38 CR 3.4 GLU 115 ALP 132 IS: PRAVACHOL PO QHS PROTONIX PO QD GABAPENTIN PO QD COZAAR PO QD SYNTHROID PO Q24H CEFEPIME IV Q24H FLAGYL PO Q8H TELE STATUS DCP: PATIENT TO BE DISCHARGED TO SNF ONCE MEDICALLY CLEARED. PLAN OF CARE: 1. Continue hemodialysis with ultrafiltration. 2. Antimicrobials for endocarditis, only for recurring bacteremia. 3. Antibiotic prophylaxis for any instrumentation in the future. 4. Respiratory hygiene. 5. Recheck chest x-ray.
[2018-09-21 12:00] VITALS: BP 124/60
[2018-09-21] MEDS ORDERED: Methocarbamol 500mg tab ORAL PRN (12:30)
--- NOTE | 2018-09-21 13:49 | NUR ---
RD ASSESSMENT & RECOMMENDATIONS SEE CARE ACTIVITY FOR COMPLETE ASSESSMENT DAILY ESTIMATED NEEDS: Needs based on ESRD + HD, wounds/ 57kg 30-35 kcals/kg 1079-9634 total kcals 1.25-1.8 g protein/kg 71-102 g total protein 20-22 mL/kg 8740-9475 total fluid mLs NUTRITION DIAGNOSIS: * Increased kcal/prot intake needs R/T renal dysfunction, wound healing as evidenced by ESRD dx, on HD, admitted w/ full thickness wound @ lateral R tibia and multiple non-blanchable erythemas, refer to WC eval. * Swallowing difficulty R/T dysphagia, h/o CVA as evidenced by IRONER MACHINE recommends mech soft chopped, NTL. CURRENT DIET:RENAL, mech soft chopped, NTL + Ensure Enlive TID PO DIET RECOMMENDATIONS: RENAL/ texture per IRONER MACHINE ADDITIONAL RECOMMENDATIONS: * Calibrated bedscale wt for accurate CBW (w/ added P200 mattress) * Nepro 1 tetra joel BID w/ variable PO (425kcal/19g prot per joel) -> pt currently receiving Ensure TID per pt request despite education provided (Ensure has 210mg more K and 80mg more phos per bottle than Nepro) * Wound healing: Continue Nephrovite x 1 : Add Isauro 1pkt BID as tolerated * Monitor renal fxn and lytes closely
--- NOTE | 2018-09-21 14:30 | NUR ---
DISCHARGE DISPOSITION: PLEASE READ PATIENT TO BE DISCHARGED TO [facility] [address] T: [phone]>> CALL FOR REPORT LIFELINE ON WILL CALL LEFT FOR SON MOODY DONOVAN. DC AFTER HD TODAY
--- NOTE | 2018-09-21 14:37 | Consultation ---
History of Present Illness General Date patient seen: Sep 21, 2018 Reason for Hospitalization: Gastrointestinal Bleed Present Illness HPI 77 year old very pleasant female who is a group home resident with medical comorbidities that presented with hemoptysis. Admitted for medical care and management. on admission noted to have wounds and possible GI bleed requiring care. surgery called to evaluate and assist with management. patient seen, chart reviewed, patient examined. states she is well but does have some URI symptoms. nostril clogged. no n/v/f/c. labs noted Allergies: Coded Allergies: PENICILLINS (Unverified Allergy, Unknown, 09/12/18) Medication History Scheduled Acetaminophen* (Acetaminophen Extra Strength*), 1,000 MG ORAL TID, (Reported) Aspirin* (Aspirin*), 325 MG ORAL DAILY, (Reported) Atorvastatin Calcium* (Lipitor*), 80 MG ORAL BEDTIME, (Reported) Docusate Sodium (Docu Liquid), 100 MG PO BID, (Reported) Epoetin Rudolph-Epbx (Retacrit), 3,000 UNIT SUBQ MON-MON-MON Gabapentin* (Gabapentin*), 100 MG ORAL DAILY Levothyroxine Sodium* (Synthroid*), 150 MCG ORAL DAILY, (Reported) Losartan Potassium* (Losartan Potassium*), 25 MG ORAL BID, (Reported) Metronidazole* (Flagyl*), 500 MG ORAL Q8HR Pantoprazole* (Protonix*), 40 MG ORAL DAILY, (Reported) Ropinirole Hcl* (Ropinirole Hcl*), 0.25 MG PO BID, (Reported) Vitamin B Cmplx/Vit C/Folic AC (Nephro-Sudha Tablet), 1 TAB ORAL DAILY, (Reported ) Zinc Sulfate (Zinc Sulfate), 220 MG ORAL DAILY, (Reported) Scheduled PRN Ondansetron (Zofran), 4 MG ORAL QIDPRN PRN Tramadol Hcl* (Ultram*), 50 MG ORAL Q6H PRN for For Pain, (Reported) Zolpidem Tartrate* (Zolpidem Tartrate*), 5 MG ORAL BEDTIME PRN for Insomnia, ( Reported) Miscellaneous Medications Lizfznosfrgr-Vtep-Ygwvvvbt,Iso (Zosyn 2.25 Gm Galaxy Bag), 2.25 GM IV, (Reported ) Discontinued Medications Amlodipine Besylate (Norvasc), 5 MG ORAL DAILY, (Reported) Discontinued Reason: Therapy completed Gabapentin* (Gabapentin*), 300 MG ORAL THREE TIMES A DAY, (Reported) Discontinued Reason: MD discontinued med Guaifenesin* (Adult Wal-Tussin*), 10 ML ORAL Q4H PRN for For Cough, (Reported) Discontinued Reason: MD discontinued med Heparin Sod (Porcine) (Heparin Sodium*), 5,000 UNITS SUBQ EVERY 12 HOURS, ( Reported) Discontinued Reason: MD discontinued med Lidocaine (Lidoderm), 2 PATCH TDERMAL DAILY, (Reported) Discontinued Reason: MD discontinued med Lytes/[place] (Mouthkote Solution), 5 SPRAYS MM FIVE TIMES A DAY PRN for DRY MOUTH, (Reported) Discontinued Reason: MD discontinued med Methocarbamol* (Methocarbamol*), 500 MG ORAL QID PRN for For Pain, (Reported) Discontinued Reason: MD discontinued med [place]-3 Acid Ethyl Esters ([place]-3 Acid Ethyl Esters), 1 GM PO TID, (Reported) Discontinued Reason: MD discontinued med Ondansetron* (Zofran*), 4 MG IV Q8H PRN for Nausea & Vomiting, (Reported) Discontinued Reason: MD discontinued med P-Ephed Hcl/Codeine/Guaifen (Guaifenesin Dac Oral Solution), PO, (Reported) Discontinued Reason: MD discontinued med Vancomycin HCl (Firvanq), 125 MG PO DAILY, (Reported) Discontinued Reason: MD discontinued med Patient History Limited by: age History Provided By: Patient, Medical Record, PMD Healthcare decision maker Bryant Root Resuscitation status Do Not Resuscitate Advanced Directive on File No Past Medical/Surgical History Past Medical/Surgical History: (1) GI bleed (2) ESRD (3) Gastrointestinal hemorrhage (4) Bilateral pleural effusion (5) Hemoptysis, unspecified (6) Osteomyelitis of cervical spine (7) CHF (congestive heart failure), NYHA class II (8) ESRD (end stage renal disease) on dialysis (9) Malnutrition Review of Systems Review of Symptoms General ROS: no weight loss or fever Psychological ROS: no depression or mood changes, no memory loss Ophthalmic ROS: no visual changes or eye irritation ENT ROS: no nasal congestion, hearing loss, dizziness Allergy and Immunology ROS: no allergic symptoms or urticaria Hematological and Lymphatic ROS: no swollen glands, unusual bleeding or bruising Endocrine ROS: no polyuria, polydipsia, weight changes, temperature intolerance Respiratory ROS: no cough, shortness of breath, or wheezing Cardiovascular ROS: no chest pain or dyspnea on exertion Gastrointestinal ROS: denies abdominal pain, bright red blood in stool. Musculoskeletal ROS: no myalgias or arthralgias Neurological ROS: no TIA or stroke symptoms Dermatological ROS: no new or changing skin lesions, rashes or pruritis Physical Exam Physical Exam General appearance: alert, cooperative, no distress, appears stated age Head: Normocephalic, without obvious abnormality, atraumatic Eyes: conjunctivae/corneas clear. PERRL, EOM's intact. Fundi benign Throat: Lips, mucosa, and tongue normal. Teeth and gums normal Neck: supple, symmetrical, trachea midline, no adenopathy, thyroid: not enlarged, symmetric, no tenderness/mass/nodules, no carotid bruit and no JVD Lungs: clear to auscultation bilaterally Heart: regular rate and rhythm, S1, S2 normal, no murmur, click, rub or gallop Abdomen: soft, non-tender. Bowel sounds normal. No masses, no organomegaly Extremities: extremities normal, atraumatic, no cyanosis or edema Pulses: 2+ and symmetric Skin: Skin color, texture, turgor normal. No rashes or lesions Neurologic: Grossly normal Last 24 Hour Vital Signs Date Time Temp Pulse Resp B/P (MAP) Pulse Ox O2 Delivery O2 Flow Rate FiO2 09/21/18 12:07 87 09/21/18 12:00 98.2 85 20 124/60 (81) 94 09/21/18 11:40 83 20 95 Nasal Cannula 3.0 32 09/21/18 11:40 95 Nasal Cannula 3.0 32 09/21/18 09:00 Nasal Cannula 4.0 09/21/18 08:07 120/61 09/21/18 08:00 97.3 74 18 120/61 (80) 98 09/21/18 07:44 68 09/21/18 04:00 97.2 89 18 127/62 (83) 96 09/21/18 04:00 78 09/21/18 00:00 89 09/21/18 00:00 97.3 89 16 150/87 (108) 100 09/20/18 22:10 87 22 94 4.0 6/20/19 22:05 97.4 80 18 143/74 (97) 99 09/20/18 21:27 84 24 98 Facial 35 09/20/18 20:13 85 20 97 Nasal Cannula 3.0 32 09/20/18 20:13 97 Nasal Cannula 3.0 32 09/20/18 20:00 84 09/20/18 20:00 97.7 84 16 137/57 (83) 95 09/20/18 16:00 97.7 75 20 114/55 (74) 97 09/20/18 16:00 82 Intake and Output 09/20/18 09/21/18 18:59 06:59 Intake Total 567.416 ml 240 ml Output Total 150 ml Balance 417.416 ml 240 ml Intake Oral 200 ml 240 ml IV Total 367.416 ml Other 150 ml Laboratory Tests Test 09/21/18 05:59 White Blood Count 10.9 K/UL (4.8-10.8) H Red Blood Count 2.62 M/UL (4.20-5.40) L Hemoglobin 9.4 G/DL (12.0-16.0) L Hematocrit 28.7 % (37.0-47.0) L Mean Corpuscular Volume 110 FL (80-99) H Mean Corpuscular Hemoglobin 35.7 PG (27.0-31.0) H Mean Corpuscular Hemoglobin Concent 32.6 G/DL (32.0-36.0) Red Cell Distribution Width 19.0 % (11.6-14.8) H Platelet Count 303 K/UL (150-450) Mean Platelet Volume 7.0 FL (6.5-10.1) Neutrophils (%) (Auto) 75.3 % (45.0-75.0) H Lymphocytes (%) (Auto) 11.7 % (20.0-45.0) L Monocytes (%) (Auto) 8.2 % (1.0-10.0) Eosinophils (%) (Auto) 3.1 % (0.0-3.0) H Basophils (%) (Auto) 1.6 % (0.0-2.0) Sodium Level 139 MMOL/L (136-145) Potassium Level 4.7 MMOL/L (3.5-5.1) Chloride Level 98 MMOL/L (98-107) Carbon Dioxide Level 32 MMOL/L (21-32) Anion Gap 9 mmol/L (5-15) Blood Urea Nitrogen 38 mg/dL (7-18) H Creatinine 3.4 MG/DL (0.55-1.30) H Estimat Glomerular Filtration Rate mL/min (>60) Glucose Level 115 MG/DL (74-106) H Calcium Level 8.9 MG/DL (8.5-10.1) Total Bilirubin 0.5 MG/DL (0.2-1.0) Aspartate Amino Transf (AST/SGOT) 18 U/L (15-37) Alanine Aminotransferase (ALT/SGPT) 16 U/L (12-78) Alkaline Phosphatase 132 U/L (46-116) H Total Protein 6.3 G/DL (6.4-8.2) L Albumin 1.8 G/DL (3.4-5.0) L Globulin 4.5 g/dL Albumin/Globulin Ratio 0.4 (1.0-2.7) L Height (Feet): 5 Height (Inches): 4.00 Weight (Pounds): 146 Medications Current Medications Medications (Trade) Dose Ordered Sig/[place] Route PRN Reason Start Time Stop Time Status Last Admin Dose Admin Acetaminophen (Tylenol) 650 mg Q6H PRN ORAL Mild Pain/Temp > 100.5 09/20/18 23:30 10/12/18 11:29 Cefepime HCl 1 gm/ Dextrose 55 ml @ 110 mls/hr Q24H IVPB 09/21/18 04:00 09/28/18 03:59 09/21/18 03:39 Chlorhexidine Gluconate (Mira-Hex 2%) 1 applic DAILY@2000 TOPIC 09/21/18 20:00 10/13/18 19:59 Epoetin Rudolph (Epoetin Rudolph(ESRD on dialysis)) 2,000 unit -MON SUBQ 09/21/18 21:00 10/21/18 20:59 Epoetin Rudolph (Epoetin Rudolph(ESRD on dialysis)) 3,000 unit -MON SUBQ 09/21/18 21:00 10/14/18 20:59 Gabapentin (Neurontin) 100 mg DAILY ORAL 09/21/18 09:00 10/14/18 08:59 09/21/18 08:07 Guaifenesin (Robitussin) 100 mg Q4H PRN ORAL For Cough 09/21/18 01:00 10/12/18 12:59 Heparin Sodium (Porcine) (Heparin Sod 1000 units/ml 10ml) 500 unit ONCE IV 09/21/18 08:00 09/21/18 16:00 Levothyroxine Sodium (Synthroid) 150 mcg Q24H ORAL 09/21/18 06:30 10/13/18 06:29 09/21/18 06:27 Losartan Potassium (Cozaar) 50 mg DAILY ORAL 09/21/18 09:00 10/21/18 08:59 09/21/18 08:07 Methocarbamol (Robaxin) 500 mg QIDPRN PRN ORAL MUSCLE PAIN 09/21/18 12:30 10/12/18 12:29 Metronidazole (Flagyl) 500 mg EVERY 8 HOURS ORAL 09/21/18 06:00 09/27/18 21:59 09/21/18 14:20 Ondansetron HCl (Zofran) 4 mg QIDPRN PRN ORAL Nausea & Vomiting 09/21/18 16:45 10/19/18 16:44 Pantoprazole (Protonix) 40 mg DAILY ORAL 09/21/18 09:00 10/13/18 08:59 09/21/18 08:08 Pravastatin Sodium (Pravachol) 40 mg BEDTIME ORAL 09/21/18 21:00 10/12/18 20:59 Sodium Chloride 1,000 ml @ 500 mls/hr Q2H PRN IVLG sbp<90 during hd 09/21/18 09:00 09/21/18 23:59 Vancomycin HCl (Vanco rx to dose) 1 ea DAILY PRN MISC Per rx protocol 09/21/18 09:00 10/20/18 17:44 Vitamin B Complex/ Vit C/Folic Acid (Nephrovite) 1 tab DAILY ORAL 09/21/18 09:00 10/13/18 08:59 09/21/18 08:08 Zinc Sulfate (Zinc Sulfate) 220 mg DAILY ORAL 09/21/18 09:00 10/13/18 08:59 09/21/18 08:08 Assessment/Plan Problem List: (1) Gastrointestinal hemorrhage Assessment & Plan: Labs stable GI eval appreciated and input noted. cont with current therapy ICD Codes: K92.2 - Gastrointestinal hemorrhage, unspecified SNOMED: 49711728 (2) Bilateral pleural effusion ICD Codes: J90 - Pleural effusion, not elsewhere classified SNOMED: 871880723, 360088911 (3) Hemoptysis, unspecified ICD Codes: R04.2 - Hemoptysis SNOMED: 95815060, 577898972 (4) Osteomyelitis of cervical spine ICD Codes: M46.22 - Osteomyelitis of vertebra, cervical region SNOMED: 517335977, 299124672 (5) CHF (congestive heart failure), NYHA class II ICD Codes: I50.9 - Heart failure, unspecified SNOMED: 171272445, 620758770 (6) ESRD (end stage renal disease) on dialysis ICD Codes: N18.6 - End stage renal disease; Z99.2 - Dependence on renal dialysis SNOMED: 479394966 (7) Malnutrition Assessment & Plan: DAILY ESTIMATED NEEDS: Needs based on ESRD + HD, wounds/ 57kg 30-35 kcals/kg 1068-5374 total kcals 1.25-1.8 g protein/kg 71-102 g total protein 20-22 mL/kg 0739-6985 total fluid mLs NUTRITION DIAGNOSIS: * Increased kcal/prot intake needs R/T renal dysfunction, wound healing as evidenced by ESRD dx, on HD, admitted w/ full thickness wound @ lateral R tibia and multiple non-blanchable erythemas, refer to WC eval. * Swallowing difficulty R/T dysphagia, h/o CVA as evidenced by BRICK SETTER OPERATOR recommends mech soft chopped, NTL. CURRENT DIET:RENAL, mech soft chopped, NTL + Ensure Enlive TID PO DIET RECOMMENDATIONS: RENAL/ texture per BRICK SETTER OPERATOR ADDITIONAL RECOMMENDATIONS: * Calibrated bedscale wt for accurate CBW (w/ added P200 mattress) * Nepro 1 tetra joel BID w/ variable PO (425kcal/19g prot per joel) -> pt currently receiving Ensure TID per pt request despite education provided (Ensure has 210mg more K and 80mg more phos per bottle than Nepro) * Wound healing: Continue Nephrovite x 1 : Add Isauro 1pkt BID as tolerated * Monitor renal fxn and lytes closely ICD Codes: E46 - Unspecified protein-calorie malnutrition SNOMED: 30699827 (8) GI bleed ICD Codes: K92.2 - Gastrointestinal hemorrhage, unspecified SNOMED: 18582425 (9) ESRD (10) Decubitus skin ulcer Assessment & Plan: Patient presented on admission with multiple pressure injuries.Pt also noted to have multiple senile purpuras R neck /R shoulder,Both upper ext and both lower ext. Non-blanchable erythema without induration or elevation in skin temp noted to thoracic spine(L)4cm x (W)2.4cm. which has resolved Non-blanchable erythema without induration noted to Sacrum with an area that is purple in colour R buttocks.Pt denied tenderness when buttocks minimally palpated.(L)8cm x (W)12.5cm. which has resolved Non-blanchable erythema noted to both ischial regions.Pt denied tenderness when each site minimally palpated. Erythema noted to mons pubis and labia majora. Pt denied burning or itching. Non-blanchable erythema with maroon discoloration with fluctuance centrally at base of wound R heel .Tender when minimally palpated. Non-blanchable erythema with fluctuance L heel. non-tender when minimally palpated. Full thickness stage 4 pressure injury with 90% fibrinous slough noted to lateral R tibia.(+) maceration along edges . Scattered purpuras periwound. No elevation in skin temp at site of wound. Small amt non-odorous seropurulent exudate noted. (L)4cm x (W)1.4cm. wound debrided by myself at bedside with non excisional debridement using gauze to remove non viable tissue. underlying tendon noted which had soft sloth on it. dressing applied Tx.Plan: Apply Cavilon Skin Barrier to thoracic spine. Cover with Optifoam drsg. Change every 7 days and prn. Apply Moisture Barrier Paste to Sacrum. Cover with Optifoam drsg. Change every 3 days and prn. Apply Moisture Barrier to perineum and both ischial areas with each perineal care. Cleanse R lateral lower ext with saline. Apply Therahoney. Apply Cavilon Skin Barrier periwound.Cover with Optifoam drsg. Change every 3 days and prn Apply Cavilon Skin Barrier to both heels. Cover each heel with Optifoam drsg. Change every 7 days and prn. Reposition at least every 2hours or as tolerated. APM/MOISES mattress. Off-load heels with pillow. ICD Codes: L89.90 - Pressure ulcer of unspecified site, unspecified stage SNOMED: 589244716 Anmol Melendrez Sep 21, 2018 14:37
--- NOTE | 2018-09-21 14:48 | NUR ---
NURSE NOTES: Paged Dr. Thakkar to confirm DC Abx medications
--- NOTE | 2018-09-21 15:06 | NUR ---
NURSE NOTES: Spoke to Dr. Thakkar, Zosyn should be continued until October 01, 2018, but should be confirmed with Dr. Adams. Left message for Dr. Adams, need to confirm end date of Zosyn and frequency
--- NOTE | 2018-09-21 15:16 | NUR ---
NURSE NOTES: Called report to CLARY Casey at [facility], aware pt will come after HD today. Needs frequency for Zosyn, spoke to Dr. Adams, he stated to contact Dr. Thakkar Addendum: 09/21/18 at 1525 by SKYLER JACOBS RN NURSE NOTES: Confirmed with Dr. Thakkar: Zosyn 2.25Gm IVPB Q8H until October, confirmed with Dr. Adams. order updated. Called report to CLARY Casey at [facility], updated info about Zosyn and HD has started.
[2018-09-21] MEDS ORDERED: NS 275ml ONE (17:55)
[2018-09-21] MEDS ORDERED: Tubing IV Secondary IV ONE (17:55)
--- NOTE | 2018-09-21 19:39 | NUR ---
HAND-OFF: Report given to SUNG Faulkner.
[2018-09-21 20:00] VITALS: BP 144/75
[2018-09-21] MEDS ORDERED: Dyna-Hex 2% Top Sol 2oz TOPIC SCH (20:00)
--- NOTE | 2018-09-21 20:00 | NUR ---
NURSE NOTES: Received report from Ada RN, pt. in bed awake-, pt. is A/O x's4- able to make needs known, cardiac monitoring on, no signs or symptoms of acute cardiac or respiratory distress noted, bed in lowest position and call light within easy reach, bed alarm on, side rails up x's3 and safety brakes engaged, pt. appears to be sating well on 4L NC at 97%- no distress noted, comfort measures provided, all needs attended to, pt. is clean and dry in bed, pt. has left subclavian Picc for IV Meds- intact and also another left side subclavian perm-cath for HD- pt. has left and right shunts both arms not in use for hemodialysis, safety measures continued, per report pt. is awaiting ambulance to take pt. to [facility] and family is aware and long term- to room [address], safety measure continued, will continue with plan of care.
[2018-09-21] MEDS ORDERED: Epoetin Alfa-EPBX(ESRD on dialysis)3000 units/ml vial SUBQ SCH (21:00)
[2018-09-21] MEDS ORDERED: Epoetin Alfa-EPBX(ESRD on dialysis)2000 units/ml vial SUBQ SCH ×2 (21:00)
--- NOTE | 2018-09-21 21:11 | NUR ---
NURSE NOTES: report given to [facility] ambulance [facility]- PT. BEING DISCHARGE TO [facility]-PT. REMAINS STABLE AND NO SIGNS OF DISTRESS NOTED.
--- NOTE | 2018-09-22 00:45 | Progress Note ---
DATE: 09/21/2018 CARDIOLOGY PROGRESS NOTE SUBJECTIVE: The patient feels much better. Less short of breath. OBJECTIVE: VITAL SIGNS: Blood pressure , respiratory rate 18, and afebrile. Monitored rhythm, sinus. LUNGS: Diminished breath sounds. CARDIAC: Regular rhythm and rate. Normal S1 and S2. A 1/6 systolic murmur at the apex. ABDOMEN: Soft. EXTREMITIES: No edema. DIAGNOSTIC DATA: Chest x-ray revealed decreased edema and effusion following thoracentesis. IMPRESSION: 1. Acute on chronic diastolic congestive heart failure, resolved. 2. End-stage renal disease, on hemodialysis. 3. Recent endocarditis with no recurring bacteremia following antimicrobial therapy. 4. Severe pulmonary hypertension with mitral and tricuspid regurgitation, clinically compensated. 5. Pleural effusion, status post thoracentesis. PLAN: 1. Stable for outpatient followup. 2. Continue current cardiovascular regimen. 3. Maximizing afterload reduction as tolerated by blood pressure. 4. Continuing maintenance dialysis schedule. Edward Mendez M.D. DR: BESSIE JOB#: [id number] CC:
--- NOTE | 2018-09-24 08:08 | Discharge Summary ---
Discharge Summary Discharge Summary _ DATE OF ADMISSION: 09/12/2018 DATE OF DISCHARGE: 09/21/2018 DISCHARGED BY: Dr. Adams REASON FOR ADMISSION: 77 years old female with past medical history of end-stage renal disease, on hemodialysis, hypertension, hyperlipidemia, COPD with centrilobular emphysema, aortic and mitral valve vegetation, hypothyroidism, hyperparathyroidism, status post parathyroidectomy, right hip replacement, alcohol abuse, mastopexy, left renal mass suspicious for carcinoma, presented to emergency department due to moderate hemoptysis , which began on the day of admission. Patient started to cough up fresh blood without chest pain . She reported some shortness of breath .Oxygen saturation was low. Patient was recently hospitalized at [facility] , and was found to have a subacute stroke in the right central [place]ov[place]. Patient was also found to have cervical osteomyelitis of the odontoid and left C1 lateral mass due to previous endocarditis and bacteremia. Patient had a history of C. difficile colitis. Patient had ascites , thought to be due to chronic liver disease. Recent chest x-ray at [facility] showed atelectasis at the right base and pleural effusion, infiltrate at the left side. Upon evaluation patient had leukocytosis WBC 18.9. ABG showed pH 7.32, PCO2 60, PO2 113, consistent with hypercarbic respiratory failure ,acute on chronic Chemistry revealed elevated BUN and creatinine, consistent with her renal failure. Blood sugar 139. ProBNP 8100. Troponin negative. INR 1.1. Chest x-ray demonstrated loculated pleural effusion, left greater than right, with basilar atelectasis and infiltrates. CTA of the chest revealed no evidence of large vessel pulmonary emboli. No evidence of thoracic aortic aneurysm or dissection. Four-chamber cardiomegaly noted. Large left and small right pleural effusion. Ascites. Anasarca. 2 cm left renal mass, worrisome for renal neoplasm. T12 compression fracture. CONSULTANTS: steel spar operator Dr. Andrea FUENTES specialist beater boss Dr. Marcum surgery Dr. Melendrez [facility]: Patient admitted to telemetry floor. Patient condition was very serious. DNR status was confirmed with the patient' s primary physician and her children. Patient started on antibiotics. Infectious disease specialist and beater boss followed. Hemodialysis provided as per beater boss directions. Supplemental oxygen titrated to keep pulse oximetry above 9o%. Patient initially was on nonrebreathing mask. Pulmonary toilet via handheld nebulizing provided. Patient started on empiric antibiotics as per ID specialist recommendations. Patient was followed-up with chest x-ray. Venous duplex bilateral lower extremity revealed recanalized chronic thrombus bilateral lower extremity. Echocardiogram revealed preserved ejection fraction 55 to 60% with no evidence of left ventricular hypertrophy. Large pleural effusion demonstrated. Severe mitral regurgitation was seen. Right ventricular systolic pressure of 104, consistent with severe pulmonary hypertension. Follow-up chest x-ray on 09/16 revealed complete opacification of the left hemithorax, likely due to large pleural effusion. Patient subsequently undergone ultrasound-guided guided thoracentesis of the left pleural effusion, which yielded 420 mL of pleural fluid. Chest x-ray post-thoracentesis demonstrated considerable reexpansion of the previously atelectatic left lung, despite relatively small volume of thoracentesis. Persistent mild interstitial congestion and basilar atelectasis on the right was seen. No pneumothorax. Patient was followed-up with chest x-ray. Chest x-ray on 09/20 again complete opacification of the left hemithorax, probably combination of reaccumulating pleural fluid and atelectatic lung. As a result , patient subsequently undergone ultrasound-guided thoracentesis , yielding 150 mL of clear yellow fluid. Chest x-ray post thoracentesis revealed reexpansion of left lung, no radiographically evident complication. Infectious disease specialist followed. Blood cultures were negative. Patient was ruled out for tuberculosis. Acid-fast bacilli smear x3 was negative. T spot was negative. Initially started respiratory isolation was discontinued. Sputum culture revealed Hien. Pleural fluid culture was negative. Antibiotic regimen provided as per ID specialist recommendation. Hien in the sputum was likely colonizer as per ID specialist. Patient was on vancomycin and cefepime to have coverage for cervical osteomyelitis and endocarditis. Room Service Manager followed. Per steel spar operator, patient had acute on chronic diastolic congestive heart failure . Angiotensin receptor blockage therapy and statin continued. GI prophylaxis provided. Hemodialysis provided as per beater boss recommendations with close monitoring of volumes and cardiorenal parameters. Electrolytes corrected as needed. Patient undergone bedside swallow evaluation and started on diet for quality of life as per speech therapist recommendations with strict aspiration precaution and one-to-one supervision. Nutritional recommendations regarding protein supplements implemented in plan of care as per registered dietitian recommendation. Surgeon seen and evaluated patient. Patient had multiply pressure injuries, present on admission. Wound care provided as per surgeon recommendation. Continue wound care at the facility. Patient clinically stabilized. Leukocytosis resolved. Patient was able to be weaned to oxygen via nasal cannula. Pulse oximetry remained stable. Patient was cleared for discharge back to [facility] facility. Patient 's overall prognosis poor. Continue maintenance dialysis schedule. Continue current cardiovascular regimen. Maximize afterload reduction as tolerated by blood pressure. FINAL DIAGNOSES: Sepsis Hemoptysis , due to pulmonary edema- resolved Healthcare acquired pneumonia Acute on chronic hypercarbic respiratory failure-resolved End-stage renal disease , on hemodialysis Acute on chronic diastolic congestive heart failure NYHA class II Bilateral pleural effusion , status post thoracentesis x2 large left pleural effusion Hypertensive heart disease Cervical osteomyelitis History of recent stroke Renal mass Recent bivalvular endocarditis (aortic and mitral valve) , (no recurring bacteremia, last positive blood culture 08/02/2018 ) Severe pulmonary hypertension with severe mitral regurgitation Peripheral artery disease History of C. difficile colitis Malnutrition Multiply pressure injuries present on admission DISCHARGE MEDICATIONS: See Medication Reconciliation list. DISCHARGE INSTRUCTIONS: [facility] to the [facility] facility. Follow up with medical doctor at the facility. I have been assigned to dictate discharge summary for this account. I was not involved in the patient's management. Teagan Martinez NP Sep 24, 2018 08:08
== END 2018-09-21 21:30 | DRG 871 ==
LOC: EDBD 01:44 → EMR 01:59 → EDBEDREQ 02:17 → ICU 02:52 → EDBEDREQ 05:08 → 2E 08:50 → 2W 15:56 → 2E 09-20 22:10
PROC: 5A1D70Z Performance of Urinary Filtration, Intermittent, Less than 6 Hours Per Day (ICD-10-PCS; principal; 2018-09-12)
PROC: 0W9B3ZZ Drainage of Left Pleural Cavity, Percutaneous Approach (ICD-10-PCS; 2018-09-17)
PROC: 0W9B3ZZ Drainage of Left Pleural Cavity, Percutaneous Approach (ICD-10-PCS; 2018-09-20)
DX: A41.9 Sepsis, unspecified organism (principal); N18.6 End stage renal disease; J18.9 Pneumonia, unspecified organism; E43 Unspecified severe protein-calorie malnutrition; I50.33 Acute on chronic diastolic (congestive) heart failure; J96.22 Acute and chronic respiratory failure with hypercapnia; R04.2 Hemoptysis; M46.22 Osteomyelitis of vertebra, cervical region; I13.2 Hypertensive heart and chronic kidney disease with heart failure and with stage 5 chronic kidney disease, or end stage renal disease; J44.0 Chronic obstructive pulmonary disease with (acute) lower respiratory infection; I82.503 Chronic embolism and thrombosis of unspecified deep veins of lower extremity, bilateral; J90 Pleural effusion, not elsewhere classified; K92.2 Gastrointestinal hemorrhage, unspecified; I35.9 Nonrheumatic aortic valve disorder, unspecified; I34.9 Nonrheumatic mitral valve disorder, unspecified; Z99.2 Dependence on renal dialysis; E78.5 Hyperlipidemia, unspecified; E03.9 Hypothyroidism, unspecified; E21.3 Hyperparathyroidism, unspecified; N28.89 Other specified disorders of kidney and ureter; I73.9 Peripheral vascular disease, unspecified; I27.20 Pulmonary hypertension, unspecified; Z66 Do not resuscitate
CPT/HCPCS: 36415; 36600; 71045; 71275; 76942; 80053; 80202; 82550; 82553; 82803; 83605; 83735; 83880; 83986; 84100; 84484; 85025; 85610; 85651; 85730; 86850; 86900; 86901; 87040; 87070; 87081; 87116; 87205; 89051; 93005; 93306; 93970; 94640; 94660; 94664; 96365; 96367; 96368; 99285; J7620